=== PATIENT | female | born 1975 ===

== ENCOUNTER 2020-07-12 10:17 | Outpatient (REF) | payer MEDICAID, SELFPAY ==
--- NOTE | ~2020-07-12 | MM_ITS ---
EXAMINATION: MM SCREENING DIGITAL BREAST TOMOSYNTHESIS, BILATERAL CLINICAL INFORMATION: Screening. Asymptomatic. The lifetime risk of breast cancer based on the Tyrer-Cuzick Model is 11%. COMPARISON: Mammography: 04/29/2019, 03/24/2018 (baseline) TECHNIQUE: Digital breast tomosynthesis is performed in both the craniocaudal and mediolateral oblique views along with computer-aided detection (CAD). Synthesized 2D images are generated from the tomosynthesis. FINDINGS: The breasts are almost entirely fatty (ACR BI-RADS breast composition Category a). There are no significant masses, abnormal calcifications, or other abnormalities. Background stromal and fibroglandular densities are stable. No significant changes. MM/MM tomosynthesis screening BI IMPRESSION: No mammographic evidence of malignancy. ASSESSMENT: BI-RADS 1: Negative RECOMMENDATION: Routine annual mammography screening. This patient's information was entered into a reminder system with a target due date for their next mammogram.
== END 2020-07-12 10:18 | disposition home or self-care (01) ==
LOC: HO.MAMMO 10:17
PROVIDERS: PCP Pediatrics; Visit Provider Pediatrics
DX: Z12.31 Encounter for screening mammogram for malignant neoplasm of breast (principal)
CPT/HCPCS: 77063; 77067

== ENCOUNTER 2020-09-15 08:15 | Emergency (ER) | payer MEDICAID, SELFPAY ==
--- NOTE | ~2020-09-15 | XR_ITS ---
EXAMINATION: CHEST X-RAY AND SOFT TISSUE NECK. CLINICAL INFORMATION: Chest pain COMPARISON: Chest 07/07/2011 TECHNIQUE: 2 views chest. 2 views soft tissue neck. FINDINGS: CHEST: The lungs are well-expanded and clear. The heart size and pulmonary vascularity is normal. No gross bony abnormality seen. SOFT TISSUE NECK: There is maintained cervical lordosis. The vertebral heights and alignment is normal. The prevertebral and pretracheal soft tissues are normal. The airway widely patent. XR/XR chest 2V IMPRESSION: Unremarkable chest exam. Unremarkable soft tissue neck.
--- NOTE | ~2020-09-15 | XR_ITS ---
EXAMINATION: CHEST X-RAY AND SOFT TISSUE NECK. CLINICAL INFORMATION: Chest pain COMPARISON: Chest 07/07/2011 TECHNIQUE: 2 views chest. 2 views soft tissue neck. FINDINGS: CHEST: The lungs are well-expanded and clear. The heart size and pulmonary vascularity is normal. No gross bony abnormality seen. SOFT TISSUE NECK: There is maintained cervical lordosis. The vertebral heights and alignment is normal. The prevertebral and pretracheal soft tissues are normal. The airway widely patent. XR/XR soft tissue neck IMPRESSION: Unremarkable chest exam. Unremarkable soft tissue neck.
[2020-09-15 09:52] VITALS: BP 129/74; PULSE 89; RESP 18; TEMP 36.9; O2SAT 100; BMI 34.3
--- NOTE | 2020-09-15 10:16 | ED_ITS ---
HPI - Chest Pain General Chief Complaint: Chest Pain Stated Complaint: DIFF BREATHING PAIN IN ESOPHAGUS Time Seen by Provider: 09/15/20 08:21 Source: patient and job tracer Mode of arrival: ambulatory Limitations: no limitations History of Present Illness MD complaint: chest pain and other (feeling dyspnea at night) Onset (ago): day(s) (3) Timing of current episode: episodic Prior episodes: No Onset: during rest and other (laying down) Pain location: substernal Pain radiation: none Severity: moderate Quality: tightness Relieving factors: nothing Exacerbating factors: supine Associated symptoms: dyspnea Treatment prior to arrival: none Related Data Previous Rx's Medication Instructions Recorded cyclobenzaprine 10 mg PO TID PRN #14 tab 09/15/20 prednisone 40 mg PO DAILY 5 Days #10 tab 09/15/20 Allergies Allergy/AdvReac Type Severity Reaction Status Date / Time Sulfa (Sulfonamide Allergy Mild RASH Verified 09/15/20 09:58 Antibiotics) [SULFA(SULFONAMIDE ANTIBIOTICS)] acetaminophen [Percocet] Allergy Unknown itch Verified 09/15/20 09:58 oxycodone [Percocet] Allergy Unknown itch Verified 09/15/20 09:58 SEAFOOD Allergy Unknown SWELLING Uncoded 02/10/20 17:23 Review of Systems Review of Systems: Constitutional : No Fever, No Chills ENT/Mouth : No sore throat, No Rhinorrhea, No Swallowing Difficulty Eyes: No Eye Pain, No Swelling, No Redness Cardiovascular : pos Chest Pain, positive SOB, No Orthopnea, no Edema Respiratory : No Cough, No Sputum, No Wheezing, positive dyspnea Gastrointestinal : No Nausea, No Vomiting, No Diarrhea, No abdominal Pain, No Hematochezia, No Melena Genitourinary : No Dysuria, No Urinary Frequency, No Hematuria Musculoskeletal : No joint pain, No Myalgias Skin : No Skin Lesions, No rash Neuro : No Weakness, No Numbness, No Dizziness, No Headache Psych : No Anxiety/Panic, No Depression Heme/Lymph: No Bruising, No Lymphadenopathy Endocrine : No Polyuria, No Polydipsia All other systems reviewed and are negative [facility] Past Medical History Attestation statement: The following information was validated with the patient. Medical History Depression Fibromyalgia Sleep apnea Social History Social History (Updated 09/15/20 @ 11:05 by Daphnie Bond DO) Alcohol intake: never Smoking Status: Never smoker Advance Directives: No Advance Directives Information Provided: No Physical Exam Vital Signs: Vital Signs: Last Vital Signs Temp 98.5 F 09/15/20 09:52 Pulse 89 09/15/20 09:52 Resp 18 09/15/20 09:52 BP 129/74 09/15/20 09:52 Pulse Ox 100 09/15/20 09:52 Body Mass Index 34.3 Appearance: Alert. Oriented X3. No acute distress. Eyes: Pupils equal, round and reactive to light. ENT: Pharynx normal. Neck: Normal inspection. Neck supple. CVS: Normal heart rate and rhythm. Pulses normal. Chest: ttp along sternum Respiratory: No respiratory distress. Breath sounds normal. Abdomen: Soft and nontender. Skin: Skin warm and dry. Normal skin color. Normal skin turgor. Extremities: No lower extremity edema. No calf ttp Neuro: Oriented X 3. No motor deficit. No sensory deficit. Course Course Course Narrative: negative workup negative xrays clear oropharynx will start on steroids for costochondritis MDM - Chest Pain MDM Narrative Medical decision making narrative: 45 yo female with HTN, fibromyalgia here with dyspnea at night feeling she has something stuck in her throat as well as chest pain since last night with associated dyspnea when laying down no signs of peripheral edema, clear lungs, reproduceable CWP, PERC negative, at this time EKG, CXR, basic labs, could be costochondritis vs atypical chest pain - dispo per results and findings. Lab Data Result diagrams: 09/15/20 10:50 09/15/20 10:50 Labs: Lab Results 09/15/20 09/15/20 09/15/20 Range/Units 10:50 10:50 10:50 WBC 7.3 (4.8-10.8) X10*3/uL RBC 3.86 L (4.20-5.50) X10*6/uL Hgb 12.0 (12.0-16.0) g/dl Hct 35.4 L (37-47) % MCV 91.7 (80-98) fL MCH 31.1 (27.0-33.0) pg MCHC 33.9 (31.0-35.0) g/dl RDW 12.2 (11.0-16.0) % Plt Count 255 (160-400) X10*3/uL MPV 8.8 L (9.4-12.3) fL Immature Gran % (Auto) 0.3 (0.0-0.4) % Neut % (Auto) 64.8 (45-73) % Lymph % (Auto) 28.1 (20-40) % [place] % (Auto) 6.3 (2-11) % Eos % (Auto) 0.4 (0-4) % Baso % (Auto) 0.1 (0-2) % Lymph # (Auto) 2.1 (1.2-4.9) X10*3/uL [place] # (Auto) 0.5 (0.1-1.2) X10*3/uL Eos # (Auto) 0.0 (0.0-0.4) X10*3/uL Baso # (Auto) 0.0 (0.0-0.2) X10*3/uL Abs Immat Gran (auto) 0.02 (0.00-0.03) X10*3/uL Absolute Neuts (auto) 4.8 (2.0-8.3) X10*3/uL Absolute Nucleated RBC 0.000 (0.0-0.012) X10*3/uL Nucleated RBC % (auto) 0.0 (0.0-0.2) /100WBC Hold Blue Top SEE NOTE Sodium 138 (135-145) mmol/L Potassium 4.1 (3.3-5.1) mmol/L Chloride 106 (96-108) mmol/L Carbon Dioxide 26 (22-29) mmol/L Anion Gap 10 L (12-20) BUN 6 L (9-16) mg/dL Creatinine 0.80 (0.5-1.4) mg/dL Estim Creat Clear Calc 106.2 Estimated GFR > 60 Random Glucose 105 (60-115) mg/dL Calcium 9.0 (8.4-10.2) mg/dL Magnesium 2.0 (1.6-2.6) mg/dL Total Bilirubin 0.4 (0.0-1.0) mg/dL Direct Bilirubin < 0.2 (0.0-0.5) mg/dL AST 25 (5-31) U/L ALT 34 H (0-31) U/L Alkaline Phosphatase 78 (39-117) U/L Troponin I High Sens (<3.5-17.0) ng/L Total Protein 6.9 (6.5-8.0) g/dL Albumin 4.0 (3.5-5.0) g/dL Lipase 47 (8-78) U/L COVID-19 (STACY) (Negative) COVID-19 Clin Com 09/15/20 09/15/20 Range/Units 10:50 10:50 WBC (4.8-10.8) X10*3/uL RBC (4.20-5.50) X10*6/uL Hgb (12.0-16.0) g/dl Hct (37-47) % MCV (80-98) fL MCH (27.0-33.0) pg MCHC (31.0-35.0) g/dl RDW (11.0-16.0) % Plt Count (160-400) X10*3/uL MPV (9.4-12.3) fL Immature Gran % (Auto) (0.0-0.4) % Neut % (Auto) (45-73) % Lymph % (Auto) (20-40) % [place] % (Auto) (2-11) % Eos % (Auto) (0-4) % Baso % (Auto) (0-2) % Lymph # (Auto) (1.2-4.9) X10*3/uL [place] # (Auto) (0.1-1.2) X10*3/uL Eos # (Auto) (0.0-0.4) X10*3/uL Baso # (Auto) (0.0-0.2) X10*3/uL Abs Immat Gran (auto) (0.00-0.03) X10*3/uL Absolute Neuts (auto) (2.0-8.3) X10*3/uL Absolute Nucleated RBC (0.0-0.012) X10*3/uL Nucleated RBC % (auto) (0.0-0.2) /100WBC Hold Blue Top Sodium (135-145) mmol/L Potassium (3.3-5.1) mmol/L Chloride (96-108) mmol/L Carbon Dioxide (22-29) mmol/L Anion Gap (12-20) BUN (9-16) mg/dL Creatinine (0.5-1.4) mg/dL Estim Creat Clear Calc Estimated GFR Random Glucose (60-115) mg/dL Calcium (8.4-10.2) mg/dL Magnesium (1.6-2.6) mg/dL Total Bilirubin (0.0-1.0) mg/dL Direct Bilirubin (0.0-0.5) mg/dL AST (5-31) U/L ALT (0-31) U/L Alkaline Phosphatase (39-117) U/L Troponin I High Sens < 3.5 (<3.5-17.0) ng/L Total Protein (6.5-8.0) g/dL Albumin (3.5-5.0) g/dL Lipase (8-78) U/L COVID-19 (STACY) Negative (Negative) COVID-19 Clin Com See Note ECG Data ECG #1: Attestation: I personally reviewed and interpreted this ECG as follows: ECG interpretation date: 09/15/20 ECG interpretation time: 11:46 Interpretation: Rate: 77 Rhythm: NSR [place]: normal Normal P waves. Normal VEGA. Normal QRS complex. ST T wave : normal no NADIRA qTC: normal prior studies: no acute ischemia The study has been interpreted contemporaneously by me. . Discharge Plan Discharge Clinical Impression: Atypical chest pain, Costalchondritis Patient Disposition: Home, Self-Care Instructions: Costochondritis (ED) Additional Instructions: return to ED for any worsening symptoms or concerns Prescriptions: New cyclobenzaprine 10 mg tablet 10 mg PO TID PRN (Reason: muscle spasm) Qty: 14 RF: 0 prednisone 20 mg tablet 40 mg PO DAILY 5 Days Qty: 10 RF: 0 Referrals: Frannie Cedillo MD [Primary Care Provider] - 3 days (if not better) Stand Alone Forms: Work/School Release Print Language: Malay
--- NOTE | 2020-09-15 10:30 | ECG_ITS ---
Test Reason : CHEST PAIN Blood Pressure : / mmHG Vent. Rate : 077 BPM Atrial Rate : 077 BPM P-R Int : 194 ms QRS Dur : 086 ms QT Int : 390 ms P-R-T Axes : 075 040 048 degrees QTc Int : 441 ms Normal sinus rhythm Normal ECG When compared with ECG of 06-MAY-2019 15:41, No significant change was found Referred By: Daphnie Bond Electronically Signed By:CHUCHO RIZVI MD
[2020-09-15 10:54] LABS: MANUAL DIFF FLAG NO
[2020-09-15 10:57] LABS: Basophils Percent Auto 0.1 % (0-2); Eosinophils Percent Auto 0.4 % (0-4); Hematocrit 35.4 % (37-47); Imm Gran Abs Auto 0.02 X10*3/uL (0.00-0.03); Imm Gran Pct Auto 0.3 % (0.0-0.4); Lymphocytes Absolute Auto 2.1 X10*3/uL (1.2-4.9); Lymphocytes Percent Auto 28.1 % (20-40); Mean Corpuscular HGB Conc 33.9 g/dl (31.0-35.0); Mean Corpuscular Hemoglobin 31.1 pg (27.0-33.0); Mean Corpuscular Volume 91.7 fL (80-98); Mean Platelet Volume 8.8 fL (9.4-12.3); Monocytes Absolute Auto 0.5 X10*3/uL (0.1-1.2); Monocytes Percent Auto 6.3 % (2-11); Neutrophils Absolute Auto 4.8 X10*3/uL (2.0-8.3); Neutrophils Percent Auto 64.8 % (45-73); Platelet Count 255 X10*3/uL (160-400); Red Blood Count 3.86 X10*6/uL (4.20-5.50); Red Cell Distribution Width 12.2 % (11.0-16.0); White Blood Count 7.3 X10*3/uL (4.8-10.8)
[2020-09-15 11:12] LABS: COVID-19 Test Negative (Negative); IDNOW Serial# 9DD0AD1C
[2020-09-15 11:35] LABS: Alanine Aminotransferase 34 U/L (0-31); Alkaline Phosphatase 78 U/L (39-117); Anion Gap 10 (12-20); Aspartate Amino Transferase 25 U/L (5-31); Bilirubin Direct < 0.2 mg/dL (0.0-0.5); Bilirubin Total 0.4 mg/dL (0.0-1.0); Blood Urea Nitrogen 6 mg/dL (9-16); Carbon Dioxide 26 mmol/L (22-29); Chloride 106 mmol/L (96-108); Creatinine Clr Calc Pharmacy 106.2; Estimated Glomerular Filt Rate > 60; Glucose Random 105 mg/dL (60-115); Lipase 47 U/L (8-78); Potassium 4.1 mmol/L (3.3-5.1); Sodium 138 mmol/L (135-145); Total Protein 6.9 g/dL (6.5-8.0)
[2020-09-15 11:40] LABS: Troponin-I High Sensitivity < 3.5 ng/L (<3.5-17.0)
== END 2020-09-15 12:19 | disposition home or self-care (01) ==
PROVIDERS: Emergency Provider Emergency Medicine; PCP Pediatrics
DX: R07.89 Other chest pain (principal); M94.0 Chondrocostal junction syndrome [Tietze]; Z20.822 Contact with and (suspected) exposure to COVID-19
CPT/HCPCS: 36415; 70360; 71046; 80048; 80076; 83690; 83735; 84484; 85025; 87635; 93005; 99283

== ENCOUNTER 2020-11-20 08:01 | Outpatient (REF) | payer MEDICAID, SELFPAY | END 2020-11-20 08:02 | disposition home or self-care (01) | LOC: CF 08:01 | PROVIDERS: Visit Provider Nurse Practitioner Family | DX: K21.9 Gastro-esophageal reflux disease without esophagitis (principal) | CPT/HCPCS: 87338; 99202 ==

== ENCOUNTER → 2020-12-25 08:25 | Outpatient (BNVA) | payer MEDICAID, SELFPAY | PROVIDERS: PCP Pediatrics; Visit Provider Nurse Practitioner Family | DX: R19.7 Diarrhea, unspecified (principal); K21.9 Gastro-esophageal reflux disease without esophagitis | CPT/HCPCS: 99212 ==

== ENCOUNTER 2021-02-05 11:49 | Day surgery (SDC) | payer MEDICAID, SELFPAY ==
--- NOTE | 2021-02-02 10:16 | HO.ANESPROP2 ---
Documented by User: Magali Chavez NP 02/02/21 10:17 HPI - Anesthesia Eval Consult details Narrative: 45yo F for Upper Endoscopy PMFSH Past Medical History Medical History (Updated 02/05/21 @ 14:13 by Taryn Devlin MD) Anxiety Bipolar 1 disorder Depression Fibromyalgia GERD (gastroesophageal reflux disease) Hypertension Panic attacks Sleep apnea Family History Family History Mother HTN (hypertension) Diabetes Father HTN (hypertension) Surgical History Surgical History History of carpal tunnel surgery Hx of section Hx of cholecystectomy Social History Social History Household Members: Children Alcohol intake: never Patient Tobacco Use Status: Former Tobacco user Smoked in Last 30 Days: No Use of substances other than those prescribed or required for medical reasons: No Are you DNR?: No Advance Directives: No Advance Directives Information Provided: No Recently lost weight without trying: No Nutrition Risks: No Nutritional Risk Meds Allergies Allergy/AdvReac Type Severity Reaction Status Date / Time Sulfa (Sulfonamide Allergy Mild RASH Verified 12/25/20 08:26 Antibiotics) [SULFA(SULFONAMIDE ANTIBIOTICS)] acetaminophen [Percocet] Allergy Unknown itch Verified 12/25/20 08:26 oxycodone [Percocet] Allergy Unknown itch Verified 12/25/20 08:26 SEAFOOD Allergy Unknown SWELLING Uncoded 02/10/20 17:23 Home Medications Medication Instructions Recorded Confirmed Last Taken Type clonidine HCl 0.2 mg tablet 1 tab PO BID 02/05/21 02/05/21 Unknown History labetalol 200 mg tablet 1 tab PO BID 02/05/21 02/05/21 02/05/21 History Exam Exam Date and Time: February 02, 2021 1016 Pertinent Lab Results Pertinent Lab Results: Laboratory Tests 09/15/20 09/15/20 10:50 10:50 WBC 7.3 Hgb 12.0 Hct 35.4 L Plt Count 255 Sodium 138 Potassium 4.1 Chloride 106 Carbon Dioxide 26 BUN 6 L Creatinine 0.80 Assessment and Plan Assessment Anesthesia Assessment: Chart Reviewed Documented by User: Taryn Devlin MD 02/05/21 14:19 [facility] Past Medical History Medical History (Updated 02/05/21 @ 14:13 by Taryn Devlin MD) Anxiety Bipolar 1 disorder Depression Fibromyalgia GERD (gastroesophageal reflux disease) Hypertension Panic attacks Sleep apnea Family History Family History Mother HTN (hypertension) Diabetes Father HTN (hypertension) Family history of problems with anesthesia: No Surgical History Surgical History History of carpal tunnel surgery Hx of section Hx of cholecystectomy History of Problems with Anesthesia: No Social History Social History Household Members: Children Alcohol intake: never Patient Tobacco Use Status: Former Tobacco user Smoked in Last 30 Days: No Use of substances other than those prescribed or required for medical reasons: No Are you DNR?: No Advance Directives: No Advance Directives Information Provided: No Recently lost weight without trying: No Nutrition Risks: No Nutritional Risk Meds Allergies Allergy/AdvReac Type Severity Reaction Status Date / Time Sulfa (Sulfonamide Allergy Mild RASH Verified 12/25/20 08:26 Antibiotics) [SULFA(SULFONAMIDE ANTIBIOTICS)] acetaminophen [Percocet] Allergy Unknown itch Verified 12/25/20 08:26 oxycodone [Percocet] Allergy Unknown itch Verified 12/25/20 08:26 SEAFOOD Allergy Unknown SWELLING Uncoded 02/10/20 17:23 Home Medications Medication Instructions Recorded Confirmed Last Taken Type clonidine HCl 0.2 mg tablet 1 tab PO BID 02/05/21 02/05/21 Unknown History labetalol 200 mg tablet 1 tab PO BID 02/05/21 02/05/21 02/05/21 History Exam Height,Weight and Vital Signs: Height 5 ft 6 in Weight 96.615 kg Vital Signs Temp Pulse Resp BP Pulse Ox 99.2 F 75 16 120/81 98 02/05/21 13:49 02/05/21 13:49 02/05/21 13:49 02/05/21 13:49 02/05/21 13:49 Pertinent Lab Results Pertinent Lab Results: Laboratory Tests 09/15/20 09/15/20 10:50 10:50 WBC 7.3 Hgb 12.0 Hct 35.4 L Plt Count 255 Sodium 138 Potassium 4.1 Chloride 106 Carbon Dioxide 26 BUN 6 L Creatinine 0.80 Lab Results 02/05/21 Range/Units 12:30 Urine Test NEGATIVE (NEGATIVE) Airway Mallampati Class: II TM Dist: >3cm Neck ROM: Full Heart: RRR Lungs: CTAB Assessment and Plan Assessment Anesthesia Assessment: Anesthesia Plan Discussed Final Anesthetic Review Family History of Problems with Anesthesia: No History of Problems with Anesthesia: No NPO: Yes ASA Class: III Final Preanesthetic Review: No Changes in Pt Med Stat, Meds/Allgs Chart Reviewed, Consent Obtained/Reviewed and Anes Risks/Benef Reviewed Patient Risk: Intermediate Procedure Risk: Low Assessment/Block/Sedation in SS: Assess/Block/Sedation-SS Anesthetic Plan Anesthetic Plan: MAC: Disposition: Standard PACU
[2021-02-05 12:53] LABS: UPreg QC Valid YES; Urine Pregnancy NEGATIVE (NEGATIVE)
[2021-02-05 12:57] VITALS: BMI 34.3
--- NOTE | 2021-02-05 12:59 | MHC.SHP ---
Pre-Procedural Eval Section A Date of Service: 02/05/21 The patient is an INPATIENT: No The History & Physical has been completed within 30 days and I have reviewed it.: No Section B Chief Complaint: GERD Details of Present Illness: GERD, post prandial diarrhea Relevant Family History (Specify if Yes): No Relevant Social History: Tobacco Use (former smoker) Present Medications: see Short Stay Collaborative assessment Medical History: Significant History (Depression Fibromyalgia Sleep apnea) History of Previous Operations: Relevant previous surgery/procedure and date(s) (History of carpal tunnel surgery Hx of section Hx of cholecystectomy) Allergies: Allergies Allergy/AdvReac Type Severity Reaction Status Date / Time Sulfa (Sulfonamide Allergy Mild RASH Verified 12/25/20 08:26 Antibiotics) [SULFA(SULFONAMIDE ANTIBIOTICS)] acetaminophen [Percocet] Allergy Unknown itch Verified 12/25/20 08:26 oxycodone [Percocet] Allergy Unknown itch Verified 12/25/20 08:26 SEAFOOD Allergy Unknown SWELLING Uncoded 02/10/20 17:23 Review of Systems Sugical H&P ROS: Negative: Constitution, Cardiovascular and Respiratory and Yes, Specify: Gastrointestinal (GERD) Exam Surgical H&P Exam: Normal: Heart, Normal: Lungs, Normal: Extremities and Normal: Abdomen Plan Diagnosis/Plan: Unchanged I have reviewed the history and physical and performed a pertinent physical examination on my patient. No changes have occurred unless specified.
--- NOTE | 2021-02-05 13:01 | PM.OP ---
Brief Operative Note Date of Service: 02/05/21 Pre-op diagnosis: GERD, dyspepsia Post-op diagnosis: other (Hiatal hernia, gastritis, gastric polyps, retained food in the stomach) Procedure: FLEXIBLE TRANSORAL UPPER GASTROINTESTINAL ENDOSCOPY WITH BIOPSIES Consent: Indications for the procedure and potential complications of bleeding, perforation, reaction to medications and missed diagnosis were discussed with the patient and informed consent was obtained. Instrument: Olympus GIF H 190 mid size upper endoscope Monitoring: Vital signs and clinical assessment, continuous EKG monitoring, Pulse oximetry, Carbon Dioxide monitoring and blood pressure monitoring were done throughout the procedure. Procedure: The patient was placed in the left lateral decubitis position and pre-procedure medications were administered and a bite block was placed. The endoscope was inserted into the mouth and advanced under direct vision to the third part of duodenum. A careful inspection was made as the upper endoscope was withdrawn including a retroflexed examination of the proximal stomach; Findings and interventions are described below. Findings: Larynx: Normal Esophagus: GE junction at 36 cms, small hiatal hernia 36 to 38 cms. No esophagitis or Andre Stomach: There was moderate amount of retained food consisteing of undigested vegetable material. Multiple 8-10 mm benign appearing polyps and body and fundus of stomach - biopsies. Mild gastric erythema. Biopsies were obtained. Grade 2 flap valve on retroflexed examination of the cardia. Duodenum: Normal bulb and descending duodenum. Biopsies were obtained from 3rd part the duodenum to check for celiac sprue Intervention: Biopsies as noted above Impression and Post Procedure Diagnosis: Endoscopy Findings: ESOPHAGUS: small hiatal hernia STOMACH: Gastritis, gastric polyps and retained food in the stomach suggestive of Gastroparesis.. DUODENUM: Normal Plan: Await pathology results. Patient has an appointment on 02/20/21 in the GI Clinic with Anai Meyers NP. Recommend further evaluation with Gastric Emptying Study. Above findings were reviewed with the patient and GERD, Hiatal hernia and Gastritic Polyps handouts were given in the discharge area Surgeon: Kristi Pittman MD Anesthesia: MAC (Dr Devlin) Was an Auto Repair Shop Manager used for this Procedure?: No Estimated blood loss (mL): 0 Pathology: other (a. small bowel bxs r/o celiac b. antrum bxs r/0 h pylori c. gastric polyp) Condition: stable Disposition: PACU
[2021-02-05] MEDS: Lactated Ringers 1,000 ML 100 ML IVCONT (13:05)
--- NOTE | 2021-02-05 13:24 | W.PM.OPN ---
Operative Note Operative Note Date of Service: 02/05/21 Narrative: Pre-op diagnosis:?GERD, dyspepsia Post-op diagnosis:?other (Hiatal hernia, gastritis, gastric polyps, retained food in the stomach) Procedure:? FLEXIBLE TRANSORAL UPPER GASTROINTESTINAL ENDOSCOPY WITH BIOPSIES Consent:?Indications for the procedure and potential complications of bleeding, perforation, reaction to medications and missed diagnosis were discussed with the patient and informed consent was obtained. Instrument:?Olympus GIF H 190 mid size upper endoscope Monitoring: Vital signs and clinical assessment, continuous EKG monitoring, Pulse oximetry, Carbon Dioxide monitoring and blood pressure monitoring were done throughout the procedure. Procedure:?The patient was placed in the left lateral decubitis position and pre-procedure medications were administered and a bite block was placed. The endoscope was inserted into the mouth and advanced under direct vision to the third part of duodenum. A careful inspection was made as the upper endoscope was withdrawn including a retroflexed examination of the proximal stomach; Findings and interventions are described below. Findings: Larynx:? Normal Esophagus:?GE junction at 36 cms, small hiatal hernia 36 to 38 cms.? No esophagitis or Andre Stomach:?There was moderate amount of retained food consisteing of undigested vegetable material.? Multiple 8-10 mm benign appearing polyps and body and fundus of stomach - biopsies.? Mild gastric erythema. Biopsies were obtained. Grade 2 flap valve on retroflexed examination of the cardia. Duodenum:?Normal bulb and descending duodenum.? Biopsies were obtained from 3rd part the duodenum to check for celiac sprue Intervention:?Biopsies as noted above Impression and Post Procedure Diagnosis: Endoscopy Findings: ESOPHAGUS: small hiatal hernia STOMACH: Gastritis, gastric polyps and retained food in the stomach suggestive of Gastroparesis.. DUODENUM: Normal Plan: Await pathology results. Patient has an appointment on 02/20/21 in the GI Clinic with Anai Meyers NP. Recommend further evaluation with Gastric Emptying Study. Above findings were reviewed with the patient and GERD, Hiatal hernia and Gastritic Polyps handouts were given in the discharge area Surgeon:?Kristi Pittman MD Anesthesia:?MAC (Dr Devlin) Was an Bilingual Middle School Teacher used for this Procedure?:?No Estimated blood loss (mL):?0 Pathology:?other (a. small bowel bxs r/o celiac? b. antrum bxs r/0 h pylori? c. gastric polyp) Condition:?stable Disposition:?PACU
[2021-02-05 13:49] VITALS: BP 120/81; PULSE 75; RESP 16; TEMP 37.3; O2SAT 98
[2021-02-05 14:05] VITALS: BP 120/82; PULSE 69; RESP 18; O2SAT 72
[2021-02-05 14:15] VITALS: BP 147/84; PULSE 67; RESP 18; TEMP 37.4; O2SAT 99
[2021-02-05 14:17] VITALS: BP 131/86
== END 2021-02-05 14:36 | disposition home or self-care (01) ==
PROVIDERS: Nurse Practitioner; PCP Pediatrics; Visit Provider Internal Medicine Gastroenterology
PROC: 0DJ08ZZ Inspection of Upper Intestinal Tract, Via Natural or Artificial Opening Endoscopic (ICD-10-PCS; CPT 43235; principal; 2021-02-05 12:50)
DX: K21.9 Gastro-esophageal reflux disease without esophagitis (principal); K31.7 Polyp of stomach and duodenum; K29.50 Unspecified chronic gastritis without bleeding; K31.84 Gastroparesis; K44.9 Diaphragmatic hernia without obstruction or gangrene; G47.30 Sleep apnea, unspecified; Z79.899 Other long term (current) drug therapy; Z88.2 Allergy status to sulfonamides; Z88.8 Allergy status to other drugs, medicaments and biological substances; Z90.49 Acquired absence of other specified parts of digestive tract; Z87.891 Personal history of nicotine dependence
CPT/HCPCS: 43239; 81025; 88305; 88342

== ENCOUNTER → 2021-02-13 07:46 | Outpatient (REF) | payer MEDICAID, SELFPAY ==
--- NOTE | ~2021-02-13 | NM_ITS ---
EXAMINATION: RADIONUCLIDE SOLID FOOD GASTRIC EMPTYING 4-HOUR STUDY CLINICAL INFORMATION: Gastritis, unspecified, without bleeding. COMPARISON: No previous gastric emptying study is available for comparison. TECHNIQUE: A standard meal consisting of 4 oz of Egg Beaters brand equivalent tagged with 150 microcuries Tc-99m Sulfur Colloid, 8 oz water and 2 slices of toast with jelly was administered orally to the patient. Images were obtained using a dual head gamma camera in the anterior and posterior projections over of the stomach immediately post ingestion and at hourly intervals up to 4 hours post ingestion. The anterior and posterior counts at each time interval were averaged using the geometric mean and expressed as percentage of the immediate post ingestion counts. FINDINGS: There is good visualization of activity in the stomach immediately post ingestion. As the study progresses, there is visualization of progressively increasing small bowel activity. However, at the end of the study there is moderately severe abnormal retention of activity in the stomach at 4 hours. Retention in the stomach at each time interval was: 1 hour 69% (normal 37%-90%) 2 hours 58% (normal 30%-60%) 3 hours 48% 4 hours 34% (normal 0%-10%) NM/NM gastric emptying study IMPRESSION: Abnormal study. There is moderately severe abnormal retention of solid food in the stomach at 4 hours.
== END ==
LOC: HO.NUCMED 07:46
PROVIDERS: PCP Pediatrics; Visit Provider Nurse Practitioner Family
DX: K29.70 Gastritis, unspecified, without bleeding (principal)
CPT/HCPCS: 78264; A9541

== ENCOUNTER 2021-02-20 12:40 | Outpatient (REF) | payer MEDICAID, SELFPAY ==
[2021-02-20 14:42] LABS: C Reactive Protein 0.41 mg/dL (< or = 0.50)
[2021-02-20 15:06] LABS: TSH reflex Free T4 2.04 uIU/mL (0.32-4.0)
== END 2021-02-20 12:41 | disposition home or self-care (01) ==
LOC: HO.LAB 12:40
PROVIDERS: PCP Pediatrics; Referring Provider Pediatrics; Visit Provider Nurse Practitioner Family
DX: R19.7 Diarrhea, unspecified (principal); K31.84 Gastroparesis; K21.9 Gastro-esophageal reflux disease without esophagitis
CPT/HCPCS: 36415; 84443; 86140; 99212

== ENCOUNTER → 2021-03-21 11:46 | Outpatient (BNVA) | payer MEDICAID, SELFPAY | PROVIDERS: PCP Pediatrics; Visit Provider Nurse Practitioner Family | DX: K31.84 Gastroparesis (principal); K21.9 Gastro-esophageal reflux disease without esophagitis; R19.7 Diarrhea, unspecified | CPT/HCPCS: 99212 ==

== ENCOUNTER 2021-06-04 10:03 | Outpatient (REF) | payer MEDICAID, SELFPAY ==
[2021-06-04 10:25] LABS: MANUAL DIFF FLAG NO
[2021-06-04 11:05] LABS: Basophils Percent Auto 0.4 % (0-2); Eosinophils Absolute Auto 0.1 X10*3/uL (0.0-0.4); Hematocrit 35.1 % (37.0-47.0); Hemoglobin 11.5 g/dl (12.0-16.0); Imm Gran Abs Auto 0.03 X10*3/uL (0.00-0.03); Imm Gran Pct Auto 0.4 % (0.0-0.4); Lymphocytes Absolute Auto 2.3 X10*3/uL (1.2-4.9); Lymphocytes Percent Auto 32.5 % (20-40); Mean Corpuscular HGB Conc 32.8 g/dl (31.0-35.0); Mean Corpuscular Hemoglobin 28.9 pg (27.0-33.0); Mean Corpuscular Volume 88.2 fL (80.0-98.0); Mean Platelet Volume 8.9 fL (9.4-12.3); Monocytes Absolute Auto 0.5 X10*3/uL (0.1-1.2); Monocytes Percent Auto 7.2 % (2-11); Neutrophils Absolute Auto 4.2 x10*3/uL (2.0-8.3); Neutrophils Percent Auto 58.5 % (45-73); Platelet Count 262 X10*3/uL (160-400); Red Blood Count 3.98 X10*6/uL (4.20-5.50); Red Cell Distribution Width 12.4 % (11.0-16.0); White Blood Count 7.2 X10*3/uL (4.8-10.8)
[2021-06-04 11:16] LABS: Estimated Average Glucose 103 mg/dL; Hemoglobin A1c % 5.2 %
[2021-06-04 11:29] LABS: Alanine Aminotransferase 32 U/L (0-31); Albumin Level 3.9 g/dL (3.5-5.0); Alkaline Phosphatase 68 U/L (39-117); Anion Gap 9 (12-20); Aspartate Amino Transferase 24 U/L (5-31); Bilirubin Total 0.4 mg/dL (0.0-1.0); Blood Urea Nitrogen 12 mg/dL (9-16); Calcium 9.5 mg/dL (8.4-10.2); Carbon Dioxide 27 mmol/L (22-29); Chloride 106 mmol/L (96-108); Cholesterol 219 mg/dL; Estimated Glomerular Filt Rate > 60; Glucose Fasting 101 mg/dL (60-99); HDL Cholesterol 44 mg/dL; LDL Cholesterol Calculated 122 mg/dl; Potassium 3.8 mmol/L (3.3-5.1); Sodium 138 mmol/L (135-145); Triglycerides 266 mg/dL
[2021-06-04 11:49] LABS: Thyroid Stimulating Hormone 2.29 uIU/mL (0.32-4.0)
== END 2021-06-04 10:04 | disposition home or self-care (01) ==
LOC: HO.LAB 10:03
PROVIDERS: PCP Pediatrics; Visit Provider Psychiatry & Neurology Psychiatry
DX: Z79.899 Other long term (current) drug therapy (principal)
CPT/HCPCS: 36415; 80053; 80061; 83036; 84443; 85025

== ENCOUNTER → 2021-06-20 10:58 | Outpatient (BNVA) | payer MEDICAID, SELFPAY | PROVIDERS: PCP Pediatrics; Referring Provider Pediatrics; Visit Provider Nurse Practitioner Family | DX: K31.84 Gastroparesis (principal); K21.9 Gastro-esophageal reflux disease without esophagitis; K58.0 Irritable bowel syndrome with diarrhea; R19.7 Diarrhea, unspecified | CPT/HCPCS: 99212 ==

== ENCOUNTER 2021-08-10 09:38 | Outpatient (REF) | payer MEDICAID, SELFPAY ==
--- NOTE | ~2021-08-10 | MM_ITS ---
EXAMINATION: MM SCREENING DIGITAL BREAST TOMOSYNTHESIS, BILATERAL CLINICAL INFORMATION: Screening. Asymptomatic. The lifetime risk of breast cancer based on the Tyrer-Cuzick Model is 15.5%. COMPARISON: Mammography: July 12, 2020 and studies dating back to March 24, 2018 TECHNIQUE: Digital breast tomosynthesis is performed in both the craniocaudal and mediolateral oblique views along with computer-aided detection (CAD). Synthesized 2D images are generated from the tomosynthesis. FINDINGS: The breasts are almost entirely fatty (ACR BI-RADS breast composition Category a). There are no significant masses, abnormal calcifications, or other abnormalities. MM/MM tomosynthesis screening BI IMPRESSION: There are no significant changes from prior study. ASSESSMENT: BI-RADS 1: Negative RECOMMENDATION: Routine annual mammography screening. This patient's information was entered into a reminder system with a target due date for their next mammogram.
== END 2021-08-10 09:39 | disposition home or self-care (01) ==
LOC: HO.MAMMO 09:38
PROVIDERS: Visit Provider Pediatrics
DX: Z12.31 Encounter for screening mammogram for malignant neoplasm of breast (principal)
CPT/HCPCS: 77063; 77067

== ENCOUNTER 2021-10-18 13:23 | Outpatient (REF) | payer MEDICAID, SELFPAY ==
[2021-10-18 15:20] LABS: Folate 6.4 ng/mL (> or = 4.0); Vitamin B12 251 pg/mL (200-900)
[2021-10-23 14:57] LABS: Vitamin D 25-OH, D2 11 ng/mL; Vitamin D 25-OH, D3 11 ng/mL; Vitamin D 25-OH, Total 22 ng/mL (30-100)
[2021-10-23 20:32] LABS: Transglutaminase Ab IgG <1.0 U/mL; Transglutaminase IgA <1.0 U/mL
== END 2021-10-18 13:24 | disposition home or self-care (01) ==
LOC: HO.LAB 13:23
PROVIDERS: PCP Pediatrics; Visit Provider Nurse Practitioner Family
DX: R19.7 Diarrhea, unspecified (principal); R10.11 Right upper quadrant pain; R14.0 Abdominal distension (gaseous); E55.9 Vitamin D deficiency, unspecified
CPT/HCPCS: 36415; 82306; 82607; 82746; 86364

== ENCOUNTER → 2021-10-26 14:26 | Outpatient (BNVA) | payer MEDICAID, SELFPAY | PROVIDERS: PCP Pediatrics | DX: R32 Unspecified urinary incontinence (principal); R35.0 Frequency of micturition | CPT/HCPCS: 99202 ==

== ENCOUNTER → 2021-10-30 13:11 | Outpatient (BNVA) | payer MEDICAID, SELFPAY | PROVIDERS: PCP Pediatrics; Referring Provider Pediatrics; Visit Provider Nurse Practitioner Family | DX: K21.9 Gastro-esophageal reflux disease without esophagitis (principal); K31.84 Gastroparesis; K58.2 Mixed irritable bowel syndrome | CPT/HCPCS: 99212 ==

== ENCOUNTER 2021-12-20 07:53 | Outpatient (REF) | payer MEDICAID, SELFPAY | END 2021-12-20 07:54 | disposition home or self-care (01) | LOC: HO.LAB 07:53 | PROVIDERS: PCP Pediatrics; Visit Provider Obstetrics & Gynecology | DX: R87.612 Low grade squamous intraepithelial lesion on cytologic smear of cervix (LGSIL) (principal) | CPT/HCPCS: 57456; 88305 ==

== ENCOUNTER → 2022-01-10 08:04 | Outpatient (BNVA) | payer MEDICAID, SELFPAY | PROVIDERS: PCP Pediatrics; Visit Provider Obstetrics & Gynecology | DX: N87.0 Mild cervical dysplasia (principal) | CPT/HCPCS: 99212 ==

== ENCOUNTER 2022-02-11 12:05 | Emergency (ER) | payer MEDICAID, SELFPAY ==
[2022-02-11 12:12] VITALS: BP 156/95; PULSE 99; RESP 18; TEMP 37.3; O2SAT 96; BMI 33.3
--- NOTE | 2022-02-11 12:16 | ECG_ITS ---
Test Reason : shoulder pain Blood Pressure : / mmHG Vent. Rate : 084 BPM Atrial Rate : 084 BPM P-R Int : 164 ms QRS Dur : 084 ms QT Int : 364 ms P-R-T Axes : 068 021 041 degrees QTc Int : 430 ms Normal sinus rhythm Normal ECG When compared with ECG of 15-SEP-2020 11:40, No significant change was found Referred By: Generic ED Physician Electronically Signed By:LOAN SANCHEZ
[2022-02-11 12:26] LABS: MANUAL DIFF FLAG NO
[2022-02-11 12:29] LABS: Basophils Percent Auto 0.4 % (0-2); Eosinophils Absolute Auto 0.1 X10*3/uL (0.0-0.4); Eosinophils Percent Auto 0.8 % (0-4); Hematocrit 33.4 % (37.0-47.0); Hemoglobin 10.8 g/dl (12.0-16.0); Imm Gran Abs Auto 0.02 X10*3/uL (0.00-0.03); Imm Gran Pct Auto 0.2 % (0.0-0.4); Lymphocytes Absolute Auto 2.3 X10*3/uL (1.2-4.9); Lymphocytes Percent Auto 27.2 % (20-40); Mean Corpuscular HGB Conc 32.3 g/dl (31.0-35.0); Mean Corpuscular Hemoglobin 27.1 pg (27.0-33.0); Mean Corpuscular Volume 83.9 fL (80.0-98.0); Mean Platelet Volume 8.5 fL (9.4-12.3); Monocytes Absolute Auto 0.7 X10*3/uL (0.1-1.2); Monocytes Percent Auto 8.1 % (2-11); Neutrophils Absolute Auto 5.4 x10*3/uL (2.0-8.3); Neutrophils Percent Auto 63.3 % (45-73); Platelet Count 274 X10*3/uL (160-400); Red Blood Count 3.98 X10*6/uL (4.20-5.50); Red Cell Distribution Width 13.4 % (11.0-16.0); White Blood Count 8.5 X10*3/uL (4.8-10.8)
[2022-02-11 12:45] LABS: Alanine Aminotransferase 22 U/L (0-31); Albumin Level 4.1 g/dL (3.5-5.0); Alkaline Phosphatase 73 U/L (39-117); Anion Gap 13 (12-20); Aspartate Amino Transferase 19 U/L (5-31); Bilirubin Direct < 0.2 mg/dL (0.0-0.5); Bilirubin Total 0.3 mg/dL (0.0-1.0); Blood Urea Nitrogen 9 mg/dL (9-16); Calcium 9.4 mg/dL (8.4-10.2); Carbon Dioxide 26 mmol/L (22-29); Chloride 104 mmol/L (96-108); Creatinine Clr Calc Pharmacy 89.3; Estimated Glomerular Filt Rate > 60; Glucose Random 80 mg/dL (60-115); Potassium 3.9 mmol/L (3.3-5.1); Sodium 139 mmol/L (135-145); Total Protein 7.2 g/dL (6.5-8.0)
[2022-02-11 12:50] LABS: Troponin-I High Sensitivity < 3.5 ng/L (<3.5-17.0)
--- NOTE | 2022-02-11 16:20 | ED.EXTPRO ---
HPI - Extremity Problem General Chief complaint: Extremity Problem Stated complaint: L shoulder rad down arm Time Seen by Provider: 02/11/22 16:20 Source: patient Mode of arrival: ambulatory Limitations: no limitations History of Present Illness HPI Narrative: 46 yo female with hx HTN presents to the ER for evaluation of left-sided shoulder pain that she woke up with for the last 3 days. She reports the last 24 hours the pain has been worse. The pain is at the top of her left shoulder and radiates into her neck, down into her chest wall. It is worse with movement of her neck and arm. She denies any trauma or injury. she denies any shortness of breath, difficulty breathing, nausea, vomiting, abdominal pain. No numbness or weakness in the left upper extremity. She is right-hand dominant. MD Complaint: extremity pain Onset (ago): day(s) (3) Pain Consistency: constant Location: left and upper extremity Severity scale (1-10): 6 Quality: aching Radiation: other ( Neck and chest) Relieving factors: rest Exacerbating factors: range of motion and palpation Associated symptoms: denies other symptoms Related Data Home Medications Medication Instructions Recorded Confirmed clonidine HCl 0.2 mg tablet 1 tab PO BID 02/05/21 02/05/21 labetalol 200 mg tablet 1 tab PO BID 02/05/21 02/05/21 cholecalciferol (vitamin D3) 50 50 mcg PO DAILY 10/26/21 mcg (2,000 unit) capsule clonazepam 1 mg tablet 1 mg PO TID PRN 10/26/21 duloxetine 60 mg capsule,delayed 60 mg PO BID 10/26/21 release ketotifen fumarate 0.025 % (0.035 1 drp ophthalmic (eye) BID 10/26/21 %) eye drops lurasidone 120 mg tablet (Latuda) 120 mg PO DAILY 10/26/21 meloxicam 7.5 mg tablet 7.5 mg PO BID PRN pain 10/26/21 pregabalin 75 mg capsule 75 mg PO BID 10/26/21 quetiapine 100 mg tablet 100 mg PO BEDTIME 10/26/21 zolpidem 10 mg tablet 10 mg PO BEDTIME 10/26/21 Previous Rx's Medication Instructions Recorded famotidine 20 mg tablet (Pepcid) 20 mg PO BEDTIME #90 tabs 10/30/21 metoclopramide HCl 5 mg tablet 5 mg PO QIDACHS #120 tabs 10/30/21 (Reglan) omeprazole 40 mg capsule,delayed 40 mg PO BID #180 caps 10/30/21 release sennosides 8.6 mg tablet (Natural 8.6 mg PO BEDTIME constipation #90 10/30/21 Senna Laxative) tabs oxybutynin chloride 10 mg 10 mg PO DAILY OAB 90 days #90 tabs 12/24/21 tablet,extended release 24 hr cyclobenzaprine 10 mg tablet 10 mg PO TID PRN muscle spasm #14 02/11/22 tabs ibuprofen 600 mg tablet 600 mg PO Q8H PRN pain #20 tabs 02/11/22 lidocaine 5 % topical patch 1 patch topical DAILY #15 ea 02/11/22 Allergies Allergy/AdvReac Type Severity Reaction Status Date / Time Sulfa (Sulfonamide Allergy Mild RASH Verified 12/24/21 10:44 Antibiotics) [SULFA(SULFONAMIDE ANTIBIOTICS)] acetaminophen [Percocet] Allergy Unknown itch Verified 12/24/21 10:44 oxycodone [Percocet] Allergy Unknown itch Verified 12/24/21 10:44 SEAFOOD Allergy Unknown SWELLING Uncoded 12/24/21 10:44 Review of Systems Review of Systems: Constitutional: No Fever, No Chills Cardiovascular: No Chest Pain, No SOB Respiratory: No Cough, No Sputum Gastrointestinal: No Nausea, No Vomiting, No Diarrhea, No abdominal Pain Genitourinary: No Dysuria, No Urinary Frequency, No Hematuria Musculoskeletal: + joint pain, + Myalgias Skin: No Skin Lesions, No rash Neuro: No Weakness, No Numbness, No Dizziness, No Headache Psych: No Anxiety/Panic, No Depression Heme/Lymph: No Bruising, No Lymphadenopathy PMFSH Past Medical History Medical History Anxiety Bipolar 1 disorder Depression Fibromyalgia GERD (gastroesophageal reflux disease) Hypertension Panic attacks Sleep apnea Urinary incontinence Surgical History History of carpal tunnel surgery History of esophagogastroduodenoscopy (EGD) Hx of section Hx of cholecystectomy Family History Family History Mother HTN (hypertension) Diabetes Father HTN (hypertension) Social History Social History Household Members: Children Alcohol intake: never Patient Tobacco Use Status: Former Tobacco user Advance Directives: No Advance Directives Information Provided: No Physical Exam Vital Signs: Vital Signs: Last Vital Signs Temp 99.2 F 02/11/22 12:12 Pulse 99 02/11/22 12:12 Resp 18 02/11/22 12:12 BP 156/95 H 02/11/22 12:12 Pulse Ox 96 02/11/22 12:12 O2 Del Method 02/11/22 12:12 BMI result Body Mass Index 33.3 Appearance: Alert. Oriented X3. No acute distress. Eyes: Pupils equal, round and reactive to light. ENT: Pharynx normal. Neck: Normal inspection. Neck supple. CVS: Normal heart rate and rhythm. Pulses normal. Mild anterior chest wall tenderness on the left side Respiratory: No respiratory distress. Breath sounds normal. Abdomen: Soft and nontender. +BS x4 Skin: Skin warm and dry. Normal skin color. Normal skin turgor. No rashes. Extremities: No lower extremity edema. left shoulder with normal inspection, there is soft tissue tenderness anterior and superiorly with palpable muscle spasm. Normal passive and active range of motion of the left shoulder, elbow, wrist. Equal ecclesiastical worker strength bilaterally. normal palpation of the left clavicle. No left humerus tenderness. Neuro: Oriented X 3. No motor deficit. No sensory deficit. Course Course Course Narrative: 46-year-old female with history of hypertension presents to the ER for evaluation of left-sided nontraumatic shoulder pain that she woke up with 3 days ago. It is worse today. Examination she has soft tissue tenderness and palpable spasm of her upper trapezius. It is exacerbated with palpation and movement of her neck and arm. A cardiac workup was done in triage. Her EKG is unremarkable and her troponin is negative. Her labs are otherwise unremarkable. At this time will treat for muscular strain and spasm with muscle relaxer an NSAID. She will follow-up with her PCP at the [facility]. Return precautions were discussed. Stable for discharge home. Patient agrees with plan. senior mechanical technician used to discuss plan. MDM - Extremity (Nontraumatic) Lab Data Result diagrams: 02/11/22 12:22 02/11/22 12:22 Labs: Lab Results 02/11/22 02/11/22 02/11/22 Range/Units 12:22 12:22 12:22 WBC 8.5 (4.8-10.8) X10*3/uL RBC 3.98 L (4.20-5.50) X10*6/uL Hgb 10.8 L (12.0-16.0) g/dl Hct 33.4 L (37.0-47.0) % MCV 83.9 (80.0-98.0) fL MCH 27.1 (27.0-33.0) pg MCHC 32.3 (31.0-35.0) g/dl RDW 13.4 (11.0-16.0) % Plt Count 274 (160-400) X10*3/uL MPV 8.5 L (9.4-12.3) fL Immature Gran % (Auto) 0.2 (0.0-0.4) % Neut % (Auto) 63.3 (45-73) % Lymph % (Auto) 27.2 (20-40) % [place] % (Auto) 8.1 (2-11) % Eos % (Auto) 0.8 (0-4) % Baso % (Auto) 0.4 (0-2) % Lymph # (Auto) 2.3 (1.2-4.9) X10*3/uL [place] # (Auto) 0.7 (0.1-1.2) X10*3/uL Eos # (Auto) 0.1 (0.0-0.4) X10*3/uL Baso # (Auto) 0.0 (0.0-0.2) X10*3/uL Abs Immat Gran (auto) 0.02 (0.00-0.03) X10*3/uL Absolute Neuts (auto) 5.4 (2.0-8.3) x10*3/uL Absolute Nucleated RBC 0.000 (0.0-0.012) X10*3/uL Nucleated RBC % (auto) 0.0 (0.0-0.2) /100WBC Sodium 139 (135-145) mmol/L Potassium 3.9 (3.3-5.1) mmol/L Chloride 104 (96-108) mmol/L Carbon Dioxide 26 (22-29) mmol/L Anion Gap 13 (12-20) BUN 9 (9-16) mg/dL Creatinine 0.96 (0.5-1.4) mg/dL Estim Creat Clear Calc 89.3 Estimated GFR > 60 Random Glucose 80 (60-115) mg/dL Calcium 9.4 (8.4-10.2) mg/dL Total Bilirubin 0.3 (0.0-1.0) mg/dL Direct Bilirubin < 0.2 (0.0-0.5) mg/dL AST 19 (5-31) U/L ALT 22 (0-31) U/L Alkaline Phosphatase 73 (39-117) U/L Troponin I High Sens < 3.5 (<3.5-17.0) ng/L Total Protein 7.2 (6.5-8.0) g/dL Albumin 4.1 (3.5-5.0) g/dL ECG Data Attestation EKG: I personally reviewed and interpreted this ECG as follows: ECG interpretation date: 02/11/22 ECG interpretation time: 16:24 Prior ECG tracings: available for review Interpretation: Normal sinus rhythm, ventricular rate 84 beats per minute, normal MD interval, no ST segment elevations or depressions. No change from prior. Discharge Plan Discharge Clinical Impression: Muscle spasm of left shoulder Patient Disposition: Home, Self-Care Instructions: Muscle Spasm (ED) Additional Instructions: Your lab workup today was unremarkable. Your EKG was normal. Your pain is most likely muscular. Take the prescribed medications as needed for pain and discomfort. Recommend using a heating pad to the area several times per day to help relax the muscle fibers. Recommend gentle massage and stretching. Follow-up with your primary care doctor If you develop new or worsening symptoms call 911 or come back to the ER for further evaluation. Tu an?lisis de laboratorio de hoy no tuvo nada especial. Ross electrocardiograma fue normal. Lo m?s probable es que tu dolor sea muscular. [place] los medicamentos recetados seg?n sea necesario para el dolor y la incomodidad. Se recomienda utilizar mitch almohadilla t?rmica en la marguerite varias veces al d?a para ayudar a relajar las fibras musculares. Recomendar masajes suaves y estiramientos. Seguimiento con ross m?dico de atenci?n primaria Si desarrolla s?ntomas nuevos o que empeoran, llame al 911 o regrese a la andrei de emergencias para mitch evaluaci?n adicional. Prescriptions: New cyclobenzaprine 10 mg tablet 10 mg PO TID PRN (Reason: muscle spasm) Qty: 14 0RF ibuprofen 600 mg tablet 600 mg PO Q8H PRN (Reason: pain) Qty: 20 0RF lidocaine 5 % adhesive patch,medicated 1 patch topical DAILY Qty: 15 0RF Rx Instructions: leave on most painful area for up to 12 hrs No Action labetalol 200 mg tablet 1 tab PO BID clonidine HCl 0.2 mg tablet 1 tab PO BID oxybutynin chloride 10 mg tablet extended release 24hr 10 mg PO DAILY 90 Days Qty: 90 0RF cholecalciferol (vitamin D3) 50 mcg (2,000 unit) capsule 50 mcg PO DAILY pregabalin 75 mg capsule 75 mg PO BID meloxicam 7.5 mg tablet 7.5 mg PO BID PRN (Reason: pain) ketotifen fumarate 0.025 % (0.035 %) drops 1 drp ophthalmic (eye) BID Latuda 120 mg tablet 120 mg PO DAILY duloxetine 60 mg capsule,delayed release(DR/EC) 60 mg PO BID zolpidem 10 mg tablet 10 mg PO BEDTIME quetiapine 100 mg tablet 100 mg PO BEDTIME clonazepam 1 mg tablet 1 mg PO TID PRN famotidine [Pepcid] 20 mg tablet 20 mg PO BEDTIME Qty: 90 3RF metoclopramide HCl [Reglan] 5 mg tablet 5 mg PO QIDACHS Qty: 120 3RF Rx Instructions: beena un comprimido 30 minutos antes de las comidas sennosides [Natural Senna Laxative] 8.6 mg tablet 8.6 mg PO BEDTIME Qty: 90 3RF omeprazole 40 mg capsule,delayed release(DR/EC) 40 mg PO BID Qty: 180 3RF Rx Instructions: Beena 1 comprimido media hora antes del desayuno y 1 comprimido media hora antes de la child psychometrist.
== END 2022-02-11 17:03 | disposition home or self-care (01) ==
PROVIDERS: Emergency Provider Emergency Medicine; PCP Pediatrics
DX: M62.838 Other muscle spasm (principal); M25.512 Pain in left shoulder; I10 Essential (primary) hypertension; Z79.899 Other long term (current) drug therapy
CPT/HCPCS: 36415; 80053; 82248; 84484; 85025; 93005; 99283; 99284

== ENCOUNTER → 2022-04-01 09:31 | Outpatient (BNVA) | payer MEDICAID, SELFPAY | PROVIDERS: PCP Pediatrics; Referring Provider Pediatrics; Visit Provider Nurse Practitioner Family | DX: K21.9 Gastro-esophageal reflux disease without esophagitis (principal); K31.84 Gastroparesis; R10.31 Right lower quadrant pain | CPT/HCPCS: 99212 ==

== ENCOUNTER 2022-04-09 09:49 | Outpatient (REF) | payer MEDICAID, SELFPAY ==
--- NOTE | ~2022-04-09 | CT_ITS ---
EXAMINATION: CT ABDOMEN AND PELVIS WITHOUT CONTRAST CLINICAL INFORMATION: Right lower quadrant pain COMPARISON: Previous abdominal ultrasound June 2015 and pelvic ultrasound November 2019 TECHNIQUE: Multidetector volumetric imaging was performed from the superior aspect of the liver through the pubic symphysis. Sagittal and coronal reformatted images were obtained on the technologist's workstation. This CT examination was performed using dose optimization techniques as appropriate, variously including the following: *Automated exposure control *Adjustment of mA and/or kV according to patient size (this includes techniques or standardized protocols for targeted exams where dose is matched to indication/reason for exam; i.e. extremities or head) *Use of iterative reconstruction technique DLP: 636 mGy-cm FINDINGS: LUNG BASES: The visualized lung bases are unremarkable. LIVER, GALLBLADDER, AND BILIARY TREE: The liver is enlarged and low in attenuation suggestive of fatty infiltration. No focal liver lesion. The gallbladder is been removed. No biliary duct dilatation. PANCREAS: Unremarkable. SPLEEN: Unremarkable. ADRENAL GLANDS: Unremarkable. KIDNEYS AND URETERS: The kidneys are normal in size, shape, and attenuation. No hydronephrosis, hydroureter, or calculi seen. No perinephric stranding. BLADDER: Unremarkable. GASTROINTESTINAL TRACT: There is stool throughout the colon questionable for constipation. The small and large bowel are otherwise unremarkable. The appendix is unremarkable. ABDOMINAL WALL: Small umbilical hernia containing fat. LYMPH NODES: Normal. VASCULAR: Unremarkable. PELVIC VISCERA: Unremarkable. OSSEOUS STRUCTURES: Unremarkable. CT/CT abdomen pelvis wo IV con IMPRESSION: Enlarged fatty liver. Question mild constipation. Normal-appearing appendix. Fleischner guidelines were followed.
== END 2022-04-09 09:50 | disposition home or self-care (01) ==
LOC: HO.CT 09:49
PROVIDERS: PCP Pediatrics; Visit Provider Nurse Practitioner Family
DX: R10.31 Right lower quadrant pain (principal)
CPT/HCPCS: 74176

== ENCOUNTER 2022-06-13 10:45 | Outpatient (REF) | payer MEDICAID, SELFPAY ==
--- NOTE | ~2022-06-13 | MM_ITS ---
EXAMINATION: MM DIAGNOSTIC DIGITAL BREAST TOMOSYNTHESIS, BILATERAL TARGETED LEFT BREAST ULTRASOUND CLINICAL INFORMATION: Left breast nodule, upper inner quadrant, 4 cm from nipple. The lifetime risk of breast cancer based on the Tyrer-Cuzick Model is 17%. COMPARISON: Mammography: 08/10/2021 and studies dating back to 03/24/2018. TECHNIQUE: Digital breast tomosynthesis is performed in both the craniocaudal and mediolateral oblique views along with computer-aided detection (CAD). Synthesized 2D images are generated from the tomosynthesis. Targeted left breast ultrasound. FINDINGS: The breasts are almost entirely fatty (ACR BI-RADS breast composition Category a). There are no significant masses, abnormal calcifications, or other abnormalities. Targeted left breast ultrasound to region of abnormality did not demonstrate any abnormal cystic or solid mass. No region of abnormal distal sound shadowing. No edema within the tissues identified. Results are discussed with the patient at time of visit. MM/MM tomosynthesis diagnostic BI IMPRESSION: There are no significant changes from prior study. ASSESSMENT: BI-RADS 1: Negative. RECOMMENDATION: Routine annual mammography screening. This patient's information was entered into a reminder system with a target due date for their next mammogram.
== END 2022-06-13 10:46 | disposition home or self-care (01) ==
LOC: HO.MAMMO 10:45
PROVIDERS: Visit Provider Internal Medicine
DX: N63.22 Unspecified lump in the left breast, upper inner quadrant (principal)
CPT/HCPCS: 76642; 77062; 77066

== ENCOUNTER → 2022-06-25 09:51 | Outpatient (BNVA) | payer MEDICAID, SELFPAY | PROVIDERS: PCP Pediatrics; Visit Provider Nurse Practitioner Family | DX: K59.01 Slow transit constipation (principal); K31.84 Gastroparesis; K21.9 Gastro-esophageal reflux disease without esophagitis; K76.0 Fatty (change of) liver, not elsewhere classified; R10.31 Right lower quadrant pain | CPT/HCPCS: 99212 ==

== ENCOUNTER → 2022-06-27 13:11 | Outpatient (BNVA) | payer MEDICAID, SELFPAY | PROVIDERS: PCP Pediatrics; Visit Provider Nurse Practitioner Family | DX: Z13.89 Encounter for screening for other disorder (principal) ==

== ENCOUNTER 2022-09-10 10:58 | Outpatient (REF) | payer MEDICAID, SELFPAY ==
--- NOTE | ~2022-09-10 | MM_ITS ---
EXAMINATION: MM SCREENING DIGITAL BREAST TOMOSYNTHESIS, BILATERAL CLINICAL INFORMATION: Screening. Asymptomatic. The lifetime risk of breast cancer based on the Tyrer-Cuzick Model is 15.7%. COMPARISON: Mammography: June 13, 2022 and studies dating back to March 24, 2018. TECHNIQUE: Digital breast tomosynthesis is performed in both the craniocaudal and mediolateral oblique views along with computer-aided detection (CAD). Synthesized 2D images are generated from the tomosynthesis. FINDINGS: The breasts are almost entirely fatty (ACR BI-RADS breast composition Category a). There are no significant masses, abnormal calcifications, or other abnormalities. MM/MM tomosynthesis screening BI IMPRESSION: No significant changes ASSESSMENT: BI-RADS 1: Negative RECOMMENDATION: Routine annual mammography screening. This patient's information was entered into a reminder system with a target due date for their next mammogram.
== END 2022-09-10 10:59 | disposition home or self-care (01) ==
LOC: HO.MAMMO 10:58
PROVIDERS: PCP Pediatrics; Visit Provider Pediatrics
DX: Z12.31 Encounter for screening mammogram for malignant neoplasm of breast (principal)
CPT/HCPCS: 77063; 77067

== ENCOUNTER → 2022-09-20 09:42 | Outpatient (BNVA) | payer MEDICAID, SELFPAY | PROVIDERS: PCP Pediatrics; Visit Provider Nurse Practitioner Family | DX: K21.9 Gastro-esophageal reflux disease without esophagitis (principal); K59.04 Chronic idiopathic constipation; K31.84 Gastroparesis | CPT/HCPCS: 99212 ==

== ENCOUNTER 2022-10-23 15:36 | Outpatient (REF) | payer MEDICAID, SELFPAY | END 2022-10-23 15:37 | disposition home or self-care (01) | LOC: HO.LNP 15:36 | PROVIDERS: PCP Pediatrics; Visit Provider Obstetrics & Gynecology | DX: A60.00 Herpesviral infection of urogenital system, unspecified (principal) | CPT/HCPCS: 99212 ==

== ENCOUNTER 2022-10-23 16:03 | Outpatient (REF) | payer MEDICAID, SELFPAY ==
[2022-10-23 18:40] LABS: CT PCR NOT DETECTED (Not Detect.); NG PCR NOT DETECTED (Not Detect.)
[2022-10-24 08:56] LABS: BV Int Neg Control Negative (Negative); BV Int Pos Control Positive (Positive)
[2022-10-25 01:50] LABS: Syphilis Screen Nonreactive (Nonreactive)
[2022-10-25 03:03] LABS: HBsAGNum1 0.35 S/CO (0.00-0.99); HIV AB/AG Nonreactive (Nonreactive); HIV Num 1 0.06 S/CO (0.00-0.99); Hepatitis B Surface Antigen Negative (Negative); ~HepC Num1 0.11 S/CO (0.00-0.79); ~Hepatitis C Antibody Nonreactive (Nonreactive)
== END 2022-10-23 16:04 | disposition home or self-care (01) ==
LOC: HO.LAB 16:03
PROVIDERS: PCP Pediatrics; Visit Provider Obstetrics & Gynecology
DX: A60.00 Herpesviral infection of urogenital system, unspecified (principal)
CPT/HCPCS: 0353U; 86780; 86803; 87255; 87340; 87389; 87480; 87510; 87660

== ENCOUNTER → 2022-11-06 09:32 | Outpatient (BNVA) | payer MEDICAID, SELFPAY | PROVIDERS: PCP Pediatrics; Visit Provider Obstetrics & Gynecology | DX: N76.6 Ulceration of vulva (principal) | CPT/HCPCS: 99212 ==

== ENCOUNTER 2022-11-19 10:29 | Outpatient (AMB) | payer MEDICAID, SELFPAY ==
[2022-11-19 10:39] VITALS: BP 130/75; PULSE 72; BMI 35.9
--- NOTE | 2022-11-19 10:39 | A.OFFVIS_ITS ---
Intake Vital Signs 11/19/22 10:39 Height 5 ft 7 in Weight 229 lb 4.492 oz BMI 35.9 BP 130/75 Blood Pressure Location Lt brachial Position Sitting Pulse 72 Intake Visit Reasons: abdomial pain , nausea Intake Note: Ginger presents in office as a est.patient for a f/u for abdominal pain , nausea PT CC: pt reports having abdominal pain , GERD, bloating , vomiting pt denies any other GI Issues Forensic Dna Analyst Required: Yes Forensic Dna Analyst Language: Assistant Secretary Name: jenise [facility] [place] Accompanied by: Self / Same As Patient Allergies Sulfa (Sulfonamide Antibiotics) [SULFA(SULFONAMIDE ANTIBIOTICS)] Allergy (Mild, Verified 11/19/22 10:40) RASH acetaminophen [Percocet] Allergy (Unknown, Verified 11/19/22 10:40) itch oxycodone [Percocet] Allergy (Unknown, Verified 11/19/22 10:40) itch SEAFOOD Allergy (Unknown, Uncoded 11/19/22 10:40) SWELLING HPI abdomial pain , nausea HPI Details LAST VISIT GERD (gastroesophageal reflux disease) Continue on omeprazole twice a day. Patient can take famotidine at bedtime. Discussed with patient the importance of eating small meals due to her gastroparesis. Unable to tolerate Reglan any more. Discussed with patient avoiding dietary triggers and late night snacking. Staying upright for minimum 3 hours after meals discussed with patient. Chronic idiopathic constipation Long history of constipation, Senokot Colace and MiraLax are not really helping patient. Will order Motegrity. Please get a PA for patient. Patient also has a gastroparesis so this would be a better choice for her. Gastroparesis Patient diagnosed with gastroparesis in 2020. Patient was not moving her bowel was then currently she is moving her bowels better. Unable to tolerate Reglan will stop that. Patient can start taking Motegrity will try to get a PA. discussed with patient about diet for gastroparesis. List of food recommended as well as list of food to avoid given to patient. I will see patient in 3 months she just turned 47 and is agreeing to discuss colonoscopy next visit. Patient should also go for upper endoscopy due to her gastroparesis and also epigastric discomfort to rule out gastritis, esophagitis, gastric or peptic ulcer, H pylori. Patient is agreeable to this plan and verbalizes understanding of instructions. She was given the opportunity to ask questions and all questions answered. ? Thank you for allowing me to participate in her care Plan Medications New prucalopride (Motegrity) 2 mg PO DAILY 30 tabs 2RF K59.04 Refilled omeprazole Beena 1 comprimido media hora antes del desayuno y 1 comprimido media hora antes de la vj. 40 mg PO BID 180 caps 3RF K21.9 famotidine (Pepcid) 20 mg PO BEDTIME 90 tabs 3RF K21.9 Discontinued metoclopramide HCl (Reglan) beena un comprimido 30 minutos antes de las comidas Discontinued Reason: Doctor's Order 5 mg PO QIDACHS 120 tabs 3RF K31.84 TODAY'S VISIT: Patient is here today for follow-up. Patient reports that since the last time I have seen her she continues to have epigastric discomfort, dyspepsia without dysphagia or odynophagia. Patient reports that her symptoms usually happen after she eats and sometimes at nighttime. Patient reports that she is moving her bowels daily taking Motegrity. Patient is eating small amounts and more often. Patient denies melena, hematochezia, unintentional weight loss or ribbon like stools. Patient denies any nausea or vomiting. Denies any abdominal pain or discomfort. Denies any other GI concerning symptoms. [facility] Medical History Anxiety Bipolar 1 disorder Depression Fibromyalgia Gastroparesis GERD (gastroesophageal reflux disease) Hypertension Panic attacks Sleep apnea Urinary incontinence Surgical History History of carpal tunnel surgery History of esophagogastroduodenoscopy (EGD) Hx of section Hx of cholecystectomy Hx of tubal ligation Family History Mother HTN (hypertension) Diabetes Father HTN (hypertension) Paternal Aunt Breast cancer Social History Household Members: Children Alcohol intake: never Patient Tobacco Use Status: Former Tobacco user Female Reproductive History Menstrual Age of Menarche: 15 Review of Systems Const Denies weight gain and Denies weight loss ENT Reports no additional complaints, Denies dysphagia and Denies odynophagia Card Reports no additional complaints Resp Reports no additional complaints GI Reports abdominal pain (Epigastric), Denies belching, Denies melena, Denies bloating, Denies change in bowel habits, Denies dysphagia, Denies excessive flatus, Reports dyspepsia, Reports heartburn, Denies diarrhea, Denies loose stools, Reports nausea, Denies odynophagia and Denies vomiting Reports no additional complaints Musc Reports no additional complaints Neuro Reports no additional complaints Psych Reports no additional complaints Endo Reports no additional complaints Physical Exam Vital Signs: Last Vital Signs Pulse 72 11/19/22 10:39 BP 130/75 11/19/22 10:39 BMI result Body Mass Index 35.9 Const General: healthy appearing, no acute distress and well developed Nutritional Appearance: well nourished Orientation/consciousness: patient oriented x3 HEENT Head: Yes normal to inspection, Yes normocephalic and Yes atraumatic Face and sinus: Yes normal facial exam Mouth: Normal oral and palatal mucosa present Throat: Yes posterior oropharynx normal, Yes tonsils normal and Yes uvula midline Eyes General: appearance normal, both eyes and all related structures Neck Neck: Yes normal visual inspection, Yes full ROM and Yes trachea midline Thyroid: Thyroid normal Resp Effort & Inspection: normal respiratory effort, able to speak in complete sentences, no tracheal deviation and symmetric chest movement Auscultation: clear to auscultation bilaterally Cardio Rate: regular rate Heart sounds: S1 normal heart sound present and S2 normal heart sound present GI Inspection: Yes normal to inspection, No distended and Yes obesity Palpation (GI): Soft to palpation, not firm, nontender and No hepatosplenomegaly present Auscultation: normal bowel sounds General: Yes no CVA tenderness Back/Spine/Pelvis Back: no CVA tenderness Skin General skin exam: elasticity normal, turgor normal and dry skin Neuro General: patient oriented x3 Psych Appearance: grossly normal Mental Status: mental status grossly normal Speech and movement: Normal speech and movement present Affect: normal affect Assessment & Plan Assessment & Plan (1) GERD (gastroesophageal reflux disease): Code(s): K21.9 - Gastro-esophageal reflux disease without esophagitis Qualifiers: Esophagitis presence: esophagitis presence not specified Qualified Code(s): K21.9 - Gastro-esophageal reflux disease without esophagitis Plan: Patient continues to have epigastric discomfort with dyspepsia postprandially. Will start her on pantoprazole and sucralfate. Will stop omeprazole and famotidine. Discussed with patient avoiding dietary triggers in late night snacking. Staying upright for minimal 3 hours after meals discussed with patient. (2) Gastroparesis: Code(s): K31.84 - Gastroparesis Plan: Diagnosed with gastroparesis in 2020. Patient was encouraged again to try to avoid dietary triggers. Eat more often and smaller meals. Patient was also encouraged to try to lose weight. Low fiber diet discussed with patient. I will see her in 2 months we will discuss colonoscopy and going for upper endoscopy. Patient is agreeable to this plan and verbalizes understanding of instructions. She was given the opportunity to ask questions and all questions answered. Thank you for allowing me to participate in her care Medications: New sucralfate 1 g PO BEDTIME 30 tabs 4RF R19.7 - Diarrhea, unspecified pantoprazole 40 mg PO BID 60 tabs 4RF K21.9 - Gastro-esophageal reflux disease without esophagitis Discontinued sennosides Discontinued Reason: Patient no longer taking 17.2 mg (2 x 8.6 mg) PO BEDTIME 180 tabs 3RF constipation K59.00 - Constipation, unspecified omeprazole Beena 1 comprimido media hora antes del desayuno y 1 comprimido media hora antes de la vj. Discontinued Reason: Doctor's Order 40 mg PO BID 180 caps 3RF K21.9 - Gastro-esophageal reflux disease without esophagitis famotidine Discontinued Reason: Doctor's Order 20 mg PO BEDTIME 90 tabs 3RF K21.9 - Gastro-esophageal reflux disease without esophagitis Coding Level of Care Code Est Pt Level 3 (35513) Diagnoses GERD (gastroesophageal reflux disease) K21.9 Esophagitis presence: esophagitis presence not specified Gastroparesis K31.84 Time Spent (min) 30 Comment 20 minutes spent with patient and additional 10 minutes spent reviewing her r ecords
== END 2022-11-19 11:18 | disposition home or self-care (01) ==
PROVIDERS: PCP Pediatrics; Visit Provider Nurse Practitioner Family
DX: K21.9 Gastro-esophageal reflux disease without esophagitis (principal); K31.84 Gastroparesis
CPT/HCPCS: 99213

== ENCOUNTER → 2022-11-19 10:29 | Outpatient (BNVA) | payer MEDICAID, SELFPAY | PROVIDERS: PCP Pediatrics; Visit Provider Nurse Practitioner Family | DX: K21.9 Gastro-esophageal reflux disease without esophagitis (principal); K31.84 Gastroparesis | CPT/HCPCS: 99213 ==

== ENCOUNTER 2022-12-06 10:13 | Outpatient (REF) | payer MEDICAID, SELFPAY ==
[2022-12-06 15:30] LABS: Free T4 (Free Thyroxine) 0.95 ng/dL (0.71-1.85); Thyroid Stimulating Hormone 1.88 uIU/mL (0.32-4.0)
[2022-12-08 01:58] LABS: Follicle Stimulating Hormone 15.7 mIU/mL; Lutenizing Hormone 5.4 mIU/mL; Prolactin 5.8 ng/mL
[2022-12-13 08:59] LABS: HPV mRNA E6/E7 Detected (Not Detected)
[2022-12-14 22:23] LABS: Estradiol, Ultrasensitive 24 pg/mL
[2022-12-26 10:24] LABS: Testosterone, Total 20 ng/dL (2-45)
== END 2022-12-06 10:14 | disposition home or self-care (01) ==
LOC: HO.CHCLDS 10:13
PROVIDERS: Visit Provider Pediatrics
DX: Z12.4 Encounter for screening for malignant neoplasm of cervix (principal); Z11.51 Encounter for screening for human papillomavirus (HPV); R23.2 Flushing
CPT/HCPCS: 36415; 82670; 82681; 83001; 83002; 84146; 84403; 84439; 84443; 87624; 88142

== ENCOUNTER 2022-12-19 11:49 | Outpatient (AMB) | payer MEDICAID, SELFPAY ==
--- NOTE | 2022-12-19 11:57 | A.OFFVIS_ITS ---
Intake Vital Signs 12/19/22 11:58 Height 5 ft 3 in Weight 230 lb 2.601 oz BMI 40.8 BP 146/75 H Blood Pressure Location Lt brachial Position Sitting Pulse 87 Intake Visit Reasons: 3 month fu Intake Note: Millicent presents in office as a est.patient for a 3month f/u. PT CC: pt reports having bloating pt denies any other GI Issues Verify Rep Required: Yes Verify Rep Language: Indonesian Accompanied by: Self / Same As Patient Allergies Sulfa (Sulfonamide Antibiotics) [SULFA(SULFONAMIDE ANTIBIOTICS)] Allergy (Mild, Verified 12/19/22 11:57) RASH acetaminophen [Percocet] Allergy (Unknown, Verified 12/19/22 11:57) itch oxycodone [Percocet] Allergy (Unknown, Verified 12/19/22 11:57) itch SEAFOOD Allergy (Unknown, Uncoded 12/19/22 11:57) SWELLING HPI 3 month fu HPI Details LAST VISIT GERD (gastroesophageal reflux disease) Patient continues to have epigastric discomfort with dyspepsia postprandially. Will start her on pantoprazole and sucralfate. Will stop omeprazole and famot idine. Discussed with patient avoiding dietary triggers in late night snacking. Staying upright for minimal 3 hours after meals discussed with patient. Gastroparesis Diagnosed with gastroparesis in 2020. Patient was encouraged again to try to avoid dietary triggers. Eat more often and smaller meals. Patient was also encouraged to try to lose weight. Low fiber diet discussed with patient. I will see her in 2 months we will discuss colonoscopy and going for upper endoscopy. Patient is agreeable to this plan and verbalizes understanding of instructions. She was given the opportunity to ask questions and all questions answered. ? 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 Discontinued Reason: Doctor's Order 40 mg PO BID 180 caps 3RF K21.9 famotidine Discontinued Reason: Doctor's Order 20 mg PO BEDTIME 90 tabs 3RF K21.9 TODAY'S VISIT Patient is here today for follow-up patient reports that she has been doing better, occasional postprandial abdominal bloating. Patient states that she is trying to eat smaller meals. States that she is moving her bowels better. As mentioned above patient has history of gastroparesis, was able to tolerate Reglan for short period of time. Has been not taking it for over a year. Currently patient is on Motegrity and is able to move her bowels. Patient believes that she empties her bowels completely. Patient wants to lose weight, however due to gastroparesis she is afraid that she might not be a good candidate. Patient denies dyspepsia, dysphagia or odynophagia. Denies any melena, hematochezia, unintentional weight loss or ribbon like stools. [facility] Medical History Anxiety Bipolar 1 disorder Depression Fibromyalgia Gastroparesis GERD (gastroesophageal reflux disease) Hypertension Panic attacks Sleep apnea Urinary incontinence Surgical History History of carpal tunnel surgery History of esophagogastroduodenoscopy (EGD) Hx of section Hx of cholecystectomy Hx of tubal ligation Family History Mother HTN (hypertension) Diabetes Father HTN (hypertension) Paternal Aunt Breast cancer Social History Household Members: Children Alcohol intake: never Patient Tobacco Use Status: Former Tobacco user Female Reproductive History Menstrual Age of Menarche: 15 Review of Systems Const Denies weight gain and Denies weight loss ENT Reports no additional complaints, Denies dysphagia and Denies odynophagia Card Reports no additional complaints Resp Reports no additional complaints GI Denies abdominal pain, Denies belching, Denies melena, Reports bloating, Denies change in bowel habits, Denies dysphagia, Denies excessive flatus, Denies dyspepsia, Denies heartburn, Denies diarrhea, Denies loose stools, Denies nausea, Denies odynophagia and Denies vomiting Reports no additional complaints Musc Reports no additional complaints Neuro Reports no additional complaints Psych Reports no additional complaints Endo Reports no additional complaints Physical Exam Vital Signs: Last Vital Signs Pulse 87 12/19/22 11:58 BP 146/75 H 12/19/22 11:58 BMI result Body Mass Index 40.8 Const General: healthy appearing, no acute distress and well developed Nutritional Appearance: obese Orientation/consciousness: patient oriented x3 HEENT Head: Yes normal to inspection, Yes normocephalic and Yes atraumatic Face and sinus: Yes normal facial exam Mouth: Normal oral and palatal mucosa present Throat: Yes posterior oropharynx normal, Yes tonsils normal and Yes uvula midline Eyes General: appearance normal, both eyes and all related structures Neck Neck: Yes normal visual inspection, Yes full ROM and Yes trachea midline Thyroid: Thyroid normal Resp Effort & Inspection: normal respiratory effort, able to speak in complete senten yogi, no tracheal deviation and symmetric chest movement Auscultation: clear to auscultation bilaterally Cardio Rate: regular rate Heart sounds: S1 normal heart sound present and S2 normal heart sound present GI Inspection: Yes normal to inspection, No distended and Yes obesity Palpation (GI): Soft to palpation, not firm, nontender and No hepatosplenomegaly present Auscultation: normal bowel sounds General: Yes no CVA tenderness Back/Spine/Pelvis Back: no CVA tenderness Skin General skin exam: elasticity normal, turgor normal and dry skin Neuro General: patient oriented x3 Psych Appearance: grossly normal Mental Status: mental status grossly normal Speech and movement: Normal speech and movement present Affect: normal affect Assessment & Plan Assessment & Plan (1) Gastroparesis: Code(s): K31.84 - Gastroparesis Plan: Continue small meals and more often. Continue Motegrity. (2) GERD (gastroesophageal reflux disease): Code(s): K21.9 - Gastro-esophageal reflux disease without esophagitis Qualifiers: Esophagitis presence: esophagitis presence not specified Qualified Code(s): K21.9 - Gastro-esophageal reflux disease without esophagitis Plan: Continue pantoprazole twice a day and sucralfate at bedtime. Discussed with patient avoiding dietary triggers, eating smaller meals. Avoid late night snacking. Staying upright for minimum 3 hours after meals discussed with patient. (3) Screen for colon cancer: Code(s): Z12.11 - Encounter for screening for malignant neoplasm of colon Plan: Schedule patient for colonoscopy and upper endoscopy. Patient denies any melena, hematochezia, unintentional weight loss or ribbon like stools. Patient denies any family history of colorectal cancer. History of sleep apnea. No issues with anesthesia in the past. Patient is not on any anticoagulation medication. Please remind patient to stop taking iron week before the procedure. What to expect before during and after the procedure discussed with patient. The importance of good bowel prep and clear liquid diet days before the procedure discussed with patient. Dulcolax and split MiraLax prep will be sent to pharmacy. I will see patient after the procedure, sooner on as needed basis. Patient is agreeable to this plan and verbalizes understanding of instructions. She was given the opportunity to ask questions and all questions answered. Thank you for allowing me to participate in her care Orders: Referrals Bariatric Surgery Referral E66.9 - Obesity, unspecified, K31.84 - Gastroparesis, G47.33 - Obstructive sleep apnea (adult) (pediatric) Coding Level of Care Code Est Pt Level 4 (86117) Diagnoses Gastroparesis K31.84 GERD (gastroesophageal reflux disease) K21.9 Esophagitis presence: esophagitis presence not specified Screen for colon cancer Z12.11 Time Spent (min) 35 Comment 20 minutes spent with patient and additional 15 minutes spent reviewing her records
[2022-12-19 11:58] VITALS: BP 146/75; PULSE 87; BMI 40.8
== END 2022-12-19 12:34 | disposition home or self-care (01) ==
PROVIDERS: Visit Provider Nurse Practitioner Family
DX: K31.84 Gastroparesis (principal); K21.9 Gastro-esophageal reflux disease without esophagitis; Z12.11 Encounter for screening for malignant neoplasm of colon
CPT/HCPCS: 99214

== ENCOUNTER → 2022-12-19 11:49 | Outpatient (BNVA) | payer MEDICAID, SELFPAY | PROVIDERS: Visit Provider Nurse Practitioner Family | DX: Z12.11 Encounter for screening for malignant neoplasm of colon (principal); K31.84 Gastroparesis; K21.9 Gastro-esophageal reflux disease without esophagitis | CPT/HCPCS: 99214 ==

== ENCOUNTER 2023-01-07 09:33 | Outpatient (REF) | payer MEDICAID, SELFPAY ==
--- NOTE | ~2023-01-07 | XR_ITS ---
EXAMINATION: XR WRIST, LEFT XR HAND, LEFT CLINICAL INFORMATION: Pain. COMPARISON: None available. TECHNIQUE: PA, lateral, and oblique views of the left hand and wrist are submitted, together with a dedicated navicular view. FINDINGS: LEFT WRIST: The bones and soft tissues are normal. No fracture. Alignment is anatomic. Joint spaces are maintained. No erosions or soft tissue calcifications. LEFT HAND: The bones and soft tissues are normal. No fracture. Alignment is anatomic. Joint spaces are maintained. No erosions or soft tissue calcifications. XR/XR hand wrist LT IMPRESSION: Normal left hand and wrist.
== END 2023-01-07 09:34 | disposition home or self-care (01) ==
LOC: HO.XRAY 09:33
PROVIDERS: PCP Pediatrics; Visit Provider Family Medicine
DX: M79.642 Pain in left hand (principal); M79.641 Pain in right hand
CPT/HCPCS: 73110; 73130

== ENCOUNTER 2023-02-17 11:00 | Outpatient (RCR) | payer MEDICAID, SELFPAY | END 2023-03-04 15:51 | disposition home or self-care (01) | LOC: HO.OT 11:00 | PROVIDERS: PCP Pediatrics; Visit Provider Family Medicine | DX: M79.641 Pain in right hand (principal); M79.642 Pain in left hand | CPT/HCPCS: 97035; 97110; 97140; 97165 ==

== ENCOUNTER 2023-02-18 11:02 | Day surgery (SDC) | payer MEDICAID, SELFPAY ==
[2023-02-14 11:41] VITALS: BMI 40.7
--- NOTE | 2023-02-17 10:06 | P.CONAN_ITS ---
Documented by User: Magali Chavez NP 02/17/23 10:07 HPI - Anesthesia Eval Consult details Narrative: 47yo F for Upper Endoscopy and Colonoscopy s/p tubal PMFSH Active Problems Active Problems: All Active Problems (Updated 11/06/22 @ 09:49 by Ricky Leija MD) Genital labial ulcer (Acute) Herpes genitalis (Acute) Gastroparesis (Acute) GERD (gastroesophageal reflux disease) (Acute) Overactive bladder (Acute) Dysplasia of cervix, low grade (FATUMA 1) (Acute) LGSIL on Pap smear of cervix (Acute) Well woman exam (Acute) Urinary incontinence (Acute) Hypertension (Acute) Past Medical History Medical History Anxiety Bipolar 1 disorder Depression Fibromyalgia Gastroparesis GERD (gastroesophageal reflux disease) Hypertension Panic attacks Sleep apnea Urinary incontinence Family History Family History Mother HTN (hypertension) Diabetes Father HTN (hypertension) Paternal Aunt Breast cancer Family history of problems with anesthesia: No Surgical History Surgical History History of carpal tunnel surgery History of esophagogastroduodenoscopy (EGD) Hx of section Hx of cholecystectomy Hx of tubal ligation History of Problems with Anesthesia: No Social History Social History Household Members: Children Alcohol intake: never Patient Tobacco Use Status: Never used Tobacco Use of substances other than those prescribed or required for medical reasons: No Are you DNR?: No Advance Directives: No Advance Directives Information Provided: Yes Meds Allergies Allergy/AdvReac Type Severity Reaction Status Date / Time acetaminophen [Percocet] Allergy Severe itch Verified 02/18/23 12:14 oxycodone [Percocet] Allergy Severe itch Verified 02/18/23 12:14 Sulfa (Sulfonamide Allergy Mild RASH Verified 02/18/23 12:14 Antibiotics) [SULFA(SULFONAMIDE ANTIBIOTICS)] SEAFOOD Allergy Severe SWELLING Uncoded 02/18/23 12:14 Home Medications Medication Instructions Recorded Confirmed Last Taken Type clonidine HCl 0.2 mg tablet 1 tab PO BID 02/05/21 02/18/23 02/18/23 History labetalol 200 mg tablet 1 tab PO BID 02/05/21 02/18/23 02/18/23 History cholecalciferol (vitamin D3) 50 50 mcg PO DAILY 10/26/21 02/18/23 Unknown History mcg (2,000 unit) capsule clonazepam 1 mg tablet 1 mg PO TID PRN Anxiety 10/26/21 02/18/23 Unknown History duloxetine 60 mg capsule,delayed 60 mg PO BID 10/26/21 02/18/23 02/18/23 History release ketotifen fumarate 0.025 % (0.035 1 drp ophthalmic (eye) BID 10/26/21 02/18/23 Unknown History %) eye drops lurasidone 120 mg tablet (Latuda) 120 mg PO DAILY 10/26/21 02/18/23 02/18/23 History quetiapine 100 mg tablet 100 mg PO BEDTIME 10/26/21 02/18/23 Unknown History zolpidem 10 mg tablet 10 mg PO BEDTIME 10/26/21 02/18/23 Unknown History ferrous sulfate 325 mg (65 mg 325 mg PO 06/27/22 06/27/22 02/15/23 History iron) tablet (FeroSul) pregabalin 100 mg capsule 100 mg PO BID 02/14/23 02/14/23 Unknown History Exam Exam Date and Time: February 17, 2023 1006 Height,Weight and Vital Signs: Height 5 ft 3 in Weight 104.326 kg Assessment and Plan Assessment Anesthesia Assessment: Chart Reviewed Final Anesthetic Review Family History of Problems with Anesthesia: No History of Problems with Anesthesia: No Documented by User: Selvin Morillo MD 02/18/23 12:49 [facility] Past Medical History Medical History Anxiety Bipolar 1 disorder Depression Fibromyalgia Gastroparesis GERD (gastroesophageal reflux disease) Hypertension Panic attacks Sleep apnea Urinary incontinence Patient : No Family History Family History Mother HTN (hypertension) Diabetes Father HTN (hypertension) Paternal Aunt Breast cancer Surgical History Surgical History History of carpal tunnel surgery History of esophagogastroduodenoscopy (EGD) Hx of section Hx of cholecystectomy Hx of tubal ligation Social History Social History Household Members: Children Alcohol intake: never Patient Tobacco Use Status: Never used Tobacco Use of substances other than those prescribed or required for medical reasons: No Are you DNR?: No Advance Directives: No Advance Directives Information Provided: Yes Meds Allergies Allergy/AdvReac Type Severity Reaction Status Date / Time acetaminophen [Percocet] Allergy Severe itch Verified 02/18/23 12:14 oxycodone [Percocet] Allergy Severe itch Verified 02/18/23 12:14 Sulfa (Sulfonamide Allergy Mild RASH Verified 02/18/23 12:14 Antibiotics) [SULFA(SULFONAMIDE ANTIBIOTICS)] SEAFOOD Allergy Severe SWELLING Uncoded 02/18/23 12:14 Home Medications Medication Instructions Recorded Confirmed Last Taken Type clonidine HCl 0.2 mg tablet 1 tab PO BID 02/05/21 02/18/23 02/18/23 History labetalol 200 mg tablet 1 tab PO BID 02/05/21 02/18/23 02/18/23 History cholecalciferol (vitamin D3) 50 50 mcg PO DAILY 10/26/21 02/18/23 Unknown History mcg (2,000 unit) capsule clonazepam 1 mg tablet 1 mg PO TID PRN Anxiety 10/26/21 02/18/23 Unknown History duloxetine 60 mg capsule,delayed 60 mg PO BID 10/26/21 02/18/23 02/18/23 History release ketotifen fumarate 0.025 % (0.035 1 drp ophthalmic (eye) BID 10/26/21 02/18/23 Unknown History %) eye drops lurasidone 120 mg tablet (Latuda) 120 mg PO DAILY 10/26/21 02/18/23 02/18/23 History quetiapine 100 mg tablet 100 mg PO BEDTIME 10/26/21 02/18/23 Unknown History zolpidem 10 mg tablet 10 mg PO BEDTIME 10/26/21 02/18/23 Unknown History ferrous sulfate 325 mg (65 mg 325 mg PO 06/27/22 06/27/22 02/15/23 History iron) tablet (FeroSul) pregabalin 100 mg capsule 100 mg PO BID 02/14/23 02/14/23 Unknown History Exam Airway Mallampati Class: I TM Dist: <=3cm Neck ROM: Full Loose/Missing/Broken Teeth: No Heart: ok Lungs: ok Assessment and Plan Assessment Anesthesia Assessment: Anesthesia Plan Discussed Final Anesthetic Review NPO: Yes ASA Class: III Final Preanesthetic Review: No Changes in Pt Med Stat, Meds/Allgs Chart Reviewed, Consent Obtained/Reviewed and Anes Risks/Benef Reviewed Patient Risk: Intermediate Procedure Risk: Intermediate Anesthetic Plan Anesthetic Plan: MAC: and Agree w/ Assess. and Plan Disposition: Standard PACU
[2023-02-18 12:23] VITALS: BP 165/85; PULSE 78; RESP 16; TEMP 37.4; O2SAT 100; BMI 36.3
--- NOTE | 2023-02-18 12:38 | MHC.SHP ---
Pre-Procedural Eval Section A Date of Service: 02/18/23 Section B Chief Complaint: GERD, screening Details of Present Illness: Medical History Anxiety Bipolar 1 disorder Depression Fibromyalgia Gastroparesis GERD (gastroesophageal reflux disease) Hypertension Panic attacks Sleep apnea Urinary incontinence Surgical History History of carpal tunnel surgery History of esophagogastroduodenoscopy (EGD) Hx of section Hx of cholecystectomy Hx of tubal ligation Relevant Social History: Tobacco Use (former) Present Medications: see Short Stay Collaborative assessment History of Previous Operations: No relevant previous surgery Allergies: Allergies Allergy/AdvReac Type Severity Reaction Status Date / Time acetaminophen [Percocet] Allergy Severe itch Verified 02/18/23 12:14 oxycodone [Percocet] Allergy Severe itch Verified 02/18/23 12:14 Sulfa (Sulfonamide Allergy Mild RASH Verified 02/18/23 12:14 Antibiotics) [SULFA(SULFONAMIDE ANTIBIOTICS)] SEAFOOD Allergy Severe SWELLING Uncoded 02/18/23 12:14 Review of Systems Review of Systems Comment: 10 point ROS negative Exam Exam Comment: Gen?appear:?No?acute?distress HEENT:?no?icterus Chest:?No?overt?resp?distress Abd:?soft,?nontender,?nondistended Psych:?Stable?affect,?answering?questions?appropriately? Neuro:?A/Ox3?noted?to?move?all?extremities?spontaneously? Ext:?no?peripheral?edema? Plan Diagnosis/Plan: Unchanged I have reviewed the history and physical and performed a pertinent physical examination on my patient. No changes have occurred unless specified. Time Spent With Patient Time: Total time managing care of this patient today ____ minutes.
--- NOTE | 2023-02-18 12:41 | P.OP_ITS ---
Operative Note Operative Note Date of Service: 02/18/23 Narrative: Procedure:?Esophagogastroduodenoscopy and colonoscopy Endoscopist:?Rajani Cline MD Indication:?GERD, screening Anesthesia Provider:?Dr Selvin Morillo Anesthesia Type:?MAC Instrument:?Olympus GIF-H190, [id number]-[id number] EGD Procedure:?? The procedure, indications, preparation and potential complications were reviewed with the patient, who indicated understanding and gave written informed consent to proceed with the help of welt insole channeler. A physical exam was performed. The endoscope was introduced through the mouth, and advanced to the second part of duodenum. The mucosa was carefully examined on slow withdrawal of the endoscope. There were no immediate complications. Patient tolerated the procedure well. EGD Findings:? * Esophagus:? Mild erythema and erosion noted at the level of GE junction at 40 cm. The Z-line was irregular with salmon colored mucosa extending up to 38 cm. Cold forceps biopsies were taken to r/o Bhatia's esophagus. * Stomach:? Normal gastric mucosa. Small to medium sized polyps were noted in the fundus and body of the stomach. Cold forceps biopsies were taken and sent for histology. Retroflexion performed in the fundus. * Duodenum:? Normal duodenal mucosa to the extent visualised. Colonoscopy Procedure:? The patient was then turned for the colonoscopy. A digital rectal exam was performed which was normal.? A distal attachment cap was affixed to the tip of the scope and the colonoscope was then inserted through the anus and advanced through the colon to the cecum at 80 cm and terminal ileum. Appendiceal orifice and ileocecal valve were identified. Mucosa was carefully examined under high definition white light as the instrument was slowly withdrawn in a retrograde panoramic fashion. Retroflexion was performed in ascending colon and rectum. The procedure was not difficult. There were no immediate obvious complications. The quality of the prep was BBPS: 2+2+3 = adequate Withdrawal time: 10 minutes Limitations: No limitation. Findings: Mucosa: Normal mucosa to cecum and terminal ileum. Protruding lesions: * Medium internal hemorrhoids without stigmata of recent bleeding. Impression: 1. Irregular Z line (biopsy) 2. Grade A esophagitis 3. Gastric polyps 4. Normal duodenum 5. Normal colon and terminal ileum mucosa 6. Internal hemorrhoids Recommendations:?? * Await pathology results. * Cont PPI * If bhatia's esophagus confirmed on biopsies, repeat EGD will be contingent on presence and extent of dysplasia. * Repeat colonoscopy for asymptomatic colon cancer screening in 10 years.
[2023-02-18 13:36] VITALS: BP 120/70; PULSE 79; RESP 16; TEMP 36.4; O2SAT 99
[2023-02-18 13:58] VITALS: BP 135/74; PULSE 71; RESP 18; TEMP 36.1; O2SAT 100
== END 2023-02-18 14:37 | disposition home or self-care (01) ==
PROVIDERS: PCP Pediatrics; Visit Provider Internal Medicine
PROC: (CPT 45378; principal; 2023-02-18 12:50)
DX: Z12.11 Encounter for screening for malignant neoplasm of colon (principal); K64.8 Other hemorrhoids; K21.9 Gastro-esophageal reflux disease without esophagitis; K31.84 Gastroparesis; K31.7 Polyp of stomach and duodenum; K20.80 Other esophagitis without bleeding; K22.89 Other specified disease of esophagus; M79.7 Fibromyalgia; I10 Essential (primary) hypertension; G47.33 Obstructive sleep apnea (adult) (pediatric); E66.9 Obesity, unspecified; Z68.41 Body mass index [BMI] 40.0-44.9, adult; Z88.2 Allergy status to sulfonamides; Z88.8 Allergy status to other drugs, medicaments and biological substances; Z79.899 Other long term (current) drug therapy; Z90.49 Acquired absence of other specified parts of digestive tract; Z87.891 Personal history of nicotine dependence
CPT/HCPCS: 45378; 43239; 88305; 88342; J3010

== ENCOUNTER → 2023-02-18 11:02 | Outpatient (BNV) | payer MEDICAID, SELFPAY | PROVIDERS: PCP Pediatrics; Visit Provider Internal Medicine | DX: Z12.11 Encounter for screening for malignant neoplasm of colon (principal); K64.0 First degree hemorrhoids; K21.9 Gastro-esophageal reflux disease without esophagitis; K20.90 Esophagitis, unspecified without bleeding | CPT/HCPCS: 43239; 45378 ==

== ENCOUNTER 2023-02-24 14:23 | Outpatient (AMB) | payer MEDICAID, SELFPAY ==
--- NOTE | 2023-02-24 14:38 | A.OFFVIS_ITS ---
Intake Vital Signs 02/24/23 14:39 Height 5 ft 6 in Weight 227 lb BMI 36.6 BP 146/73 H Blood Pressure Location Rt brachial Position Sitting Pulse 69 Intake Visit Reasons: s/p colon Son Intake Note: Patient presents to in office visit today in follow up of colonoscopy and EGD. Patient underwent colo/EGD with Dr. Cline on 02/19/23. CC: Patient c/o sensation of fullness, nausea, and pain from esophagus since after procedure. Denies other GI symptoms today. Allergies acetaminophen [Percocet] Allergy (Severe, Verified 02/24/23 14:42) itch oxycodone [Percocet] Allergy (Severe, Verified 02/24/23 14:42) itch Sulfa (Sulfonamide Antibiotics) [SULFA(SULFONAMIDE ANTIBIOTICS)] Allergy (Mild, Verified 02/24/23 14:42) RASH SEAFOOD Allergy (Severe, Uncoded 02/18/23 12:14) SWELLING HPI s/p colon Son HPI Details LAST VISIT (1) Encounter for screening colonoscopy: Comment: Patient prefers to hold off on scheduling 6 index screening colonoscopy she is having cardiac issues that she wants addressed prior to, cardiology referral p ending She is well has some emotional issues she is dealing with at this time with her family We will await for further referral. UPPER ENDOSCOPY AND COLONOSCOPY EGD Findings:? * Esophagus:? Mild erythema and erosion noted at the level of GE junction at 40 cm. The Z-line was irregular with salmon colored mucosa extending up to 38 cm. Cold forceps biopsies were taken to r/o Bhatia's esophagus. * Stomach:? Normal gastric mucosa. Small to medium sized polyps were noted in the fundus and body of the stomach. Cold forceps biopsies were taken and sent for histology. Retroflexion performed in the fundus. * Duodenum:? Normal duodenal mucosa to the extent visualised. Findings: Mucosa: Normal mucosa to cecum and terminal ileum. Protruding lesions: * Medium internal hemorrhoids without stigmata of recent bleeding. Impression: 1. Irregular Z line (biopsy) 2. Grade A esophagitis 3. Gastric polyps 4. Normal duodenum 5. Normal colon and terminal ileum mucos a 6. Internal hemorrhoids Recommendations:?? * Await pathology results. * Cont PPI * If bhatia's esophagus confirmed on biopsies, repeat EGD will be contingent on presence and extent of dysplasia. * Repeat colonoscopy for asymptomatic colon cancer screening in 10 years. PATHOLOGY RESULTS Diagnosis A. Gastric polyp: Fundic gland polyp with minimal chronic inactive inflammation; negative for H pylori, intestinal metaplasia and dysplasia. B. Esophagus, lower, biopsy: Squamocolumnar mucosa with minimal chronic inactive inflammation; negative for intestinal metaplasia and dysplasia TODAY'S VISIT Patient today for follow-up and to discuss upper colonoscopy. Patient denies any ill effects from the prep, anesthesia or procedure itself. However patient does report epigastric discomfort and she is worried that it is due to biopsy of her stomach polyp. Upper endoscopy and colonoscopy results discussed with patient. Patient reports that she has been due moving her bowels better now that she is taking Motegrity. Patient reports that her feeling of fullness has decreased. Occasional epigastric discomfort depending on what she eats. Patient admits that when she eats occasionally late at night she will have acid reflux with dyspepsia. Patient denies dysphagia or odynophagia. Patient denies melena, hematochezia, unintentional weight loss or ribbon like stools. Patient reports occasional postprandial abdominal bloating. Patient reports that she is trying to avoid food that is high in fat or fried. Patient states she avoids eating food from fast food restaurants. [facility] Medical History Gastroparesis Urinary incontinence Hypertension GERD (gastroesophageal reflux disease) Panic attacks Anxiety Bipolar 1 disorder Sleep apnea Fibromyalgia Depression Surgical History H/O colonoscopy Hx of tubal ligation History of esophagogastroduodenoscopy (EGD) Hx of cholecystectomy Hx of section History of carpal tunnel surgery Family History Mother HTN (hypertension) Diabetes Father HTN (hypertension) Paternal Aunt Breast cancer Social History Household Members: Children Alcohol intake: never Patient Tobacco Use Status: Never used Tobacco Female Reproductive History Menstrual Age of Menarche: 15 Review of Systems Const Denies weight gain and Denies weight loss ENT Reports no additional complaints, Denies dysphagia and Denies odynophagia Card Reports no additional complaints Resp Reports no additional complaints GI Denies abdominal pain, Denies belching, Denies melena, Denies bloating, Denies change in bowel habits, Denies dysphagia, Denies excessive flatus, Denies dyspepsia, Reports heartburn, Denies diarrhea, Denies loose stools, Denies nausea, Denies odynophagia and Denies vomiting Reports no additional complaints Musc Reports no additional complaints Neuro Reports no additional complaints Psych Reports no additional complaints Endo Reports no additional complaints Physical Exam Vital Signs: Last Vital Signs Pulse 69 02/24/23 14:39 BP 146/73 H 02/24/23 14:39 BMI result Body Mass Index 36.6 Const General: healthy appearing, no acute distress and well developed Nutritional Appearance: obese Orientation/consciousness: patient oriented x3 HEENT Head: Yes normal to inspection, Yes normocephalic and Yes atraumatic Face and sinus: Yes normal facial exam Mouth: Normal oral and palatal mucosa present Throat: Yes posterior oropharynx normal, Yes tonsils normal and Yes uvula midline Eyes General: appearance normal, both eyes and all related structures Neck Neck: Yes normal visual inspection, Yes full ROM and Yes trachea midline Thyroid: Thyroid normal Resp Effort & Inspection: normal respiratory effort, able to speak in complete sentences, no tracheal deviation and symmetric chest movement Auscultation: clear to auscultation bilaterally Cardio Rate: regular rate Heart sounds: S1 normal heart sound present and S2 normal heart sound present GI Inspection: Yes normal to inspection, No distended and Yes obesity Palpation (GI): Soft to palpation, not firm, nontender and No hepatosplenomegaly present Auscultation: normal bowel sounds General: Yes no CVA tenderness Back/Spine/Pelvis Back: no CVA tenderness Skin General skin exam: elasticity normal, turgor normal and dry skin Neuro General: patient oriented x3 Psych Appearance: grossly normal Mental Status: mental status grossly normal Assessment & Plan Assessment & Plan (1) GERD (gastroesophageal reflux disease): Code(s): K21.9 - Gastro-esophageal reflux disease without esophagitis Qualifiers: Esophagitis presence: esophagitis presence not specified Qualified Code(s): K21.9 - Gastro-esophageal reflux disease without esophagitis (2) Gastroparesis: Code(s): K31.84 - Gastroparesis (3) Chronic idiopathic constipation: Code(s): K59.04 - Chronic idiopathic constipation (4) Status post colonoscopy: Code(s): Z98.890 - Other specified postprocedural states Plan Continue Motegrity. Discussed with patient avoiding dietary triggers in late night snacking. Staying upright for minimum 3 hours after meals discussed with patient. Patient can continue taking his pantoprazole twice a day, however discussed with patient that we will decrease it to once a day next visit. Patient can continue taking sucralfate at bedtime. She was encouraged to eat smaller meals and more often. To prevent abdominal bloating patient was encouraged to making sure that she drinks plenty fluids so she can evacuate her bowels better as well as increase exercise. Weight loss was encouraged. I will see patient in 2 months, sooner on as needed basis. Patient is agreeable to this plan and understanding of instructions. She was given the opportunity to ask questions and all questions answered. Thank you for allowing me to participate in her care Coding Level of Care Code Est Pt Level 4 (40342) Diagnoses Gastroesophageal reflux disease, unspecified whether esophagitis present K21.9 Esophagitis presence: esophagitis presence not specified Gastroparesis K31.84 Chronic idiopathic constipation K59.04 Status post colonoscopy Z98.890 Time Spent (min) 35 Comment 20 minutes spent with patient and additional 15 minutes spent reviewing her records
[2023-02-24 14:39] VITALS: BP 146/73; PULSE 69; BMI 36.6
== END 2023-02-24 15:07 | disposition home or self-care (01) ==
PROVIDERS: PCP Pediatrics; Visit Provider Nurse Practitioner Family
DX: K21.9 Gastro-esophageal reflux disease without esophagitis (principal); K31.84 Gastroparesis; K59.04 Chronic idiopathic constipation; Z98.890 Other specified postprocedural states
CPT/HCPCS: 99214

== ENCOUNTER → 2023-02-24 14:23 | Outpatient (BNVA) | payer MEDICAID, SELFPAY | PROVIDERS: PCP Pediatrics; Visit Provider Nurse Practitioner Family | DX: K21.9 Gastro-esophageal reflux disease without esophagitis (principal); K59.04 Chronic idiopathic constipation; K31.84 Gastroparesis; Z98.890 Other specified postprocedural states | CPT/HCPCS: 99212 ==

== ENCOUNTER 2023-03-21 08:28 | Outpatient (AMB) | payer MEDICAID, SELFPAY ==
--- NOTE | 2023-03-21 08:29 | MHC.OFFVIS ---
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 Patient reports that she has history of bilateral carpal tunnel release. She has done OT with no releif. Current symptoms have been present for about 1 year now. She has stiffness in bilateral thumbs. 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 Allergies acetaminophen [Percocet] Allergy (Severe, Verified 02/24/23 14:42) itch oxycodone [Percocet] Allergy (Severe, Verified 02/24/23 14:42) itch Sulfa (Sulfonamide Antibiotics) [SULFA(SULFONAMIDE ANTIBIOTICS)] Allergy (Mild, Verified 02/24/23 14:42) RASH SEAFOOD Allergy (Severe, Uncoded 02/18/23 12:14) SWELLING Medication List - Last Reconciled 03/21/23 by Freda Quintana MD cholecalciferol (vitamin D3) 50 mcg PO DAILY clonazepam 1 mg PO TID PRN clonidine HCl 1 tab PO BID duloxetine 60 mg PO BID ferrous sulfate (FeroSul) 325 mg PO ketotifen fumarate 0.025%(0.035%) 1 drp ophthalmic (eye) BID labetalol 1 tab PO BID lisinopril 10 mg PO QAM lurasidone (Latuda) 120 mg PO DAILY pantoprazole 40 mg PO BID pregabalin 100 mg PO BID prucalopride (Motegrity) 2 mg PO DAILY quetiapine 50 - 100 mg PO BEDTIME sucralfate 1 g PO BEDTIME zolpidem 10 mg PO BEDTIME HPI HPI Comments History of Present Illness Details Bilateral hand pain, same symptoms. She says symptoms did not change much despite CTS surgery 6 years ago. Numbness on fingers various and pain. Worst on 5th and 3rd digits. Also on base of thumbs. She says she did have EMG done at [facility]. But this is not available for my review. She says she the EMG again after surgery. History of fibromyalgia, on lyrica and cymbalta, seen by Rheumatology. She says her main issue is on base of her thumbs. Been given prednisone, tramadol, PT, without relief. No injection. Has been wearing CTS brace. [facility] Medical History (Updated 03/21/23 @ 09:18 by Freda Quintana MD) De Quervain's tenosynovitis, bilateral Carpal tunnel syndrome on both sides Gastroparesis Urinary incontinence Hypertension GERD (gastroesophageal reflux disease) Panic attacks Anxiety Bipolar 1 disorder Sleep apnea Fibromyalgia Depression Surgical History H/O colonoscopy Hx of tubal ligation History of esophagogastroduodenoscopy (EGD) Hx of cholecystectomy Hx of section History of carpal tunnel surgery Family History Mother HTN (hypertension) Diabetes Father HTN (hypertension) Paternal Aunt Breast cancer Social History Household Members: Children Alcohol intake: never Patient Tobacco Use Status: Never used Tobacco Female Reproductive History Menstrual Age of Menarche: 15 Review of Systems Const All systems reviewed & are unremarkable except as noted in HPI and below Physical Exam Vital Signs: BMI result Body Mass Index 36.6 Constitutional: Patient appears to be in no acute distress, well nourished and well developed. MSK: Tender on 1st to 3rd MCP joints, 1st CMC joints, along the base of the thumb bilateral. No joint effusion noted. No deformity noted. No intrinsic hand weakness noted. No atrophy noted. Melvina test could not do due to pain. Carpal compression test positive on wrist? Tinel sign negative. Strength is 5/5 in all muscle groups tested. No increased tone noted. Neurological: Neurologic examination of the upper and lower extremities was nonfocal with intact sensation, muscle stretch reflexes and without focal motor deficits . Newman?s negative bilaterally. Gait is non-antalgic without loss of balance. Results Reviewed Results Reviewed: I independently reviewed the results of the following: Left hand x-ray done in December showed preserved joint spaces. I reviewed records from the following: Rheumatology Assessment & Plan Assessment & Plan (1) Bilateral hand pain: Code(s): M79.641 - Pain in right hand; M79.642 - Pain in left hand (2) De Quervain's tenosynovitis, bilateral: Code(s): M65.4 - Radial styloid tenosynovitis [de Quervain] (3) Carpal tunnel syndrome on both sides: Code(s): G56.03 - Carpal tunnel syndrome, bilateral upper limbs Plan Chronic hand pain particularly on MCP and CMC joints. History of carpal tunnel syndrome but still continues with symptoms of it. Also complaining of numbness on 5th digit. Possible de Quervain tenosynovitis bilateral. We will repeat x-rays today. She is interested in doing injection which we will do after x-rays, in 1 or 2 weeks. She is interested in repeating EMG. We will schedule. Most importantly, we will put her on a thumb spica splint. Assessment and plan discussed with patient, and patient was agreeable. All questions were answered thoroughly. Freda Quintana MD, PATRICIA Board Certified, [place] [employer] and Rehabilitation (ABPMR) Board Certified, [place] [employer] Electrodiagnostic [employer] (ABEM) Orders: Orders XR hand wrist LT Today G56.03 - Carpal tunnel syndrome, bilateral upper limbs, M19.049 - Primary osteoarthritis, unspecified hand, M65.4 - Radial styloid tenosynovitis [de Quervain], N76.6 - Ulceration of vulva XR hand wrist RT Today G56.03 - Carpal tunnel syndrome, bilateral upper limbs, M19.049 - Primary osteoarthritis, unspecified hand, M65.4 - Radial styloid tenosynovitis [de Quervain], N76.6 - Ulceration of vulva NE electromyogram (EMG) Today G56.03 - Carpal tunnel syndrome, bilateral upper limbs NE nerve conduction velocity Today G56.03 - Carpal tunnel syndrome, bilateral upper limbs Coding Level of Care Code New Pt Level 4 (34574) Diagnoses Bilateral hand pain M79.641; M79.642 De Quervain's tenosynovitis, bilateral M65.4 Carpal tunnel syndrome on both sides G56.03
[2023-03-21 08:38] VITALS: BMI 36.6
== END 2023-03-21 09:32 | disposition home or self-care (01) ==
PROVIDERS: PCP Pediatrics; Visit Provider Physical Medicine & Rehabilitation
DX: M79.641 Pain in right hand (principal); M79.642 Pain in left hand; M65.4 Radial styloid tenosynovitis [de Quervain]; G56.03 Carpal tunnel syndrome, bilateral upper limbs
CPT/HCPCS: 99204

== ENCOUNTER 2023-03-21 08:28 | Outpatient (REF) | payer MEDICAID, SELFPAY ==
--- NOTE | ~2023-03-21 | XR_ITS ---
EXAMINATION: XR WRIST, LEFT XR HAND, LEFT CLINICAL INFORMATION: Pain. COMPARISON: 01/07/2023 TECHNIQUE: PA, oblique and lateral views of the left wrist and hand. Moderate degenerative changes in the first carpometacarpal joint with joint space narrowing and hypertrophic change. Mild degenerative changes in the first and fifth metacarpophalangeal joints with joint space narrowing and hypertrophic change. No displaced fracture. XR/XR hand wrist LT IMPRESSION: Mild to moderate degenerative changes as detailed above. No displaced fracture. Recommend follow-up imaging in 10-14 days if fracture is suspected.
--- NOTE | ~2023-03-21 | XR_ITS ---
EXAMINATION: XR WRIST, LEFT XR HAND, LEFT CLINICAL INFORMATION: Pain. COMPARISON: 01/07/2023 TECHNIQUE: PA, oblique and lateral views of the left wrist and hand. Moderate degenerative changes in the first carpometacarpal joint with joint space narrowing and hypertrophic change. Mild degenerative changes in the first and fifth metacarpophalangeal joints with joint space narrowing and hypertrophic change. No displaced fracture. XR/XR hand wrist RT IMPRESSION: Mild to moderate degenerative changes as detailed above. No displaced fracture. Recommend follow-up imaging in 10-14 days if fracture is suspected.
== END 2023-03-21 08:29 | disposition home or self-care (01) ==
LOC: HO.HOSX 08:28
PROVIDERS: PCP Pediatrics; Visit Provider Physical Medicine & Rehabilitation
DX: M79.641 Pain in right hand (principal); M79.642 Pain in left hand; M65.4 Radial styloid tenosynovitis [de Quervain]; G56.03 Carpal tunnel syndrome, bilateral upper limbs; N76.6 Ulceration of vulva
CPT/HCPCS: 73110; 73130; 99202

== ENCOUNTER 2023-04-02 08:39 | Outpatient (AMB) | payer MEDICAID, SELFPAY ==
--- NOTE | 2023-04-02 08:42 | MHC.OFFVIS ---
Intake Vital Signs 04/02/23 08:43 Height 5 ft 6 in Weight 227 lb BMI 36.6 Intake Visit Reasons: OV-B/L hand injection Intake Note: Millicent 47 yr old female presents today for her follow up visit for bilateral hand injection for CTS. Allergies acetaminophen [Percocet] Allergy (Severe, Verified 04/02/23 08:47) itch oxycodone [Percocet] Allergy (Severe, Verified 04/02/23 08:47) itch Sulfa (Sulfonamide Antibiotics) [SULFA(SULFONAMIDE ANTIBIOTICS)] Allergy (Mild, Verified 04/02/23 08:47) RASH SEAFOOD Allergy (Severe, Uncoded 04/02/23 08:47) SWELLING HPI HPI Comments History of Present Illness Details She is here today for Carpal Tunnel Syndrome injections. But her symptoms are different. More pain on the base of both thumbs. EMG has not been done yet. [facility] Medical History (Updated 04/02/23 @ 12:46 by Freda Quintana MD) De Quervain's tenosynovitis, bilateral Carpal tunnel syndrome on both sides Gastroparesis Urinary incontinence Hypertension GERD (gastroesophageal reflux disease) Panic attacks Anxiety Bipolar 1 disorder Sleep apnea Fibromyalgia Depression Surgical History H/O colonoscopy Hx of tubal ligation History of esophagogastroduodenoscopy (EGD) Hx of cholecystectomy Hx of section History of carpal tunnel surgery Family History Mother HTN (hypertension) Diabetes Father HTN (hypertension) Paternal Aunt Breast cancer Social History (Reviewed 04/02/23 @ 08:48 by Ngozi Nogueira [facility]) Household Members: Children Alcohol intake: never Patient Tobacco Use Status: Never used Tobacco Female Reproductive History Menstrual Age of Menarche: 15 Physical Exam Vital Signs: BMI result Body Mass Index 36.6 Positive right Melvina test. Office Procedures Tendon Injection Tendon Injection Details: Consent obtained. Patient placed right hand vertically with thumb held in slight flexion. Gap between tendons abductor pollicis longus and extensor pollicis brevis was identified. Area cleaned in sterile manner. Gauge 25 0.5 inch needle inserted perpendicular into the gap approximately between the tendons. Injected solution containing 10 mg Kenalog and 0.75 mL 2% lidocaine. Patient tolerated procedure well. No complications noted. [id number] Tendon Sheath Injection All charges added?: Procedure code (CPT) selection complete Results Reviewed Results Reviewed: 04/02/23 08:50 Lidocaine HCl 1 % [Xylocaine 1 %] 2 ml .ROUTE .STK-MED ONE Triamcinolone Acetonide [Kenalog-40] 40 mg .ROUTE .STK-MED ONE Ordering Physician: Freda Watson Date of Service: 03/21/23 Procedure(s): XR hand wrist RT Accession Number(s): [id number] cc: Frannie Cedillo MD; Freda Watson~ EXAMINATION: XR WRIST, LEFT XR HAND, LEFT CLINICAL INFORMATION: Pain. COMPARISON: 01/07/2023 TECHNIQUE: PA, oblique and lateral views of the left wrist and hand. Moderate degenerative changes in the first carpometacarpal joint with joint space narrowing and hypertrophic change. Mild degenerative changes in the first and fifth metacarpophalangeal joints with joint space narrowing and hypertrophic change. No displaced fracture. XR/XR hand wrist RT IMPRESSION: Mild to moderate degenerative changes as detailed above. No displaced fracture. Recommend follow-up imaging in 10-14 days if fracture is suspected. Assessment & Plan Assessment & Plan (1) De Quervain's tenosynovitis, right: Code(s): M65.4 - Radial styloid tenosynovitis [de Quervain] Plan De Quervain injection done. Patient tolerated procedure well. Assessment and plan discussed with patient, and patient was agreeable. All questions were answered thoroughly. Freda Quintana MD, PATRICIA Board Certified, [place] Board of [employer] and Rehabilitation (ABPMR) Board Certified, [place] Board [employer] Electrodiagnostic [employer] (ABEM) Orders: Orders AMB Injection-Tendon Today M65.4 - Radial styloid tenosynovitis [de Quervain] Coding Level of Care Code Procedure Only Diagnoses De Quervain's tenosynovitis, right M65.4 CPT Codes Tendon Injection - Tendon Injection 1: [id number] Tendon Sheath Injection ([id number])
[2023-04-02 08:43] VITALS: BMI 36.6
== END 2023-04-02 09:18 | disposition home or self-care (01) ==
PROVIDERS: PCP Pediatrics; Visit Provider Physical Medicine & Rehabilitation
DX: M65.4 Radial styloid tenosynovitis [de Quervain] (principal)
CPT/HCPCS: 20550

== ENCOUNTER → 2023-04-02 08:39 | Outpatient (BNVA) | payer MEDICAID, SELFPAY | PROVIDERS: PCP Pediatrics; Visit Provider Physical Medicine & Rehabilitation | DX: M65.4 Radial styloid tenosynovitis [de Quervain] (principal) | CPT/HCPCS: 20550; J3301 ==

== ENCOUNTER 2023-04-24 12:02 | Outpatient (AMB) | payer MEDICAID, SELFPAY ==
--- NOTE | 2023-04-24 12:11 | MHC.OFFVIS ---
Intake Vital Signs 04/24/23 12:13 Height 5 ft 6 in Weight 227 lb BMI 36.6 Intake Visit Reasons: OV-B/L hand injection Intake Note: Millicent 47 yr old female presents today for her left hand IP and MCP joint pain. States its painful when bending thumb. Patiemt would like to discuss possible injection for her left thumb/hand. Also states she is very happy with her pain relief after her right dequervain injection. Allergies acetaminophen [Percocet] Allergy (Severe, Verified 04/24/23 12:13) itch oxycodone [Percocet] Allergy (Severe, Verified 04/24/23 12:13) itch Sulfa (Sulfonamide Antibiotics) [SULFA(SULFONAMIDE ANTIBIOTICS)] Allergy (Mild, Verified 04/24/23 12:13) RASH SEAFOOD Allergy (Severe, Uncoded 04/24/23 12:13) SWELLING HPI HPI Comments History of Present Illness Details Last visit with it the right de Quervain injection with very good relief. Denies any more right wrist pain. Today she is complaining of pain on left 1st IP and MCP joint. Denies any tenderness on CMC or wrist. No swelling or redness. [facility] Medical History (Updated 04/24/23 @ 12:28 by Freda Quintana MD) Degenerative joint disease of left hand Carpal tunnel syndrome on both sides Gastroparesis Urinary incontinence Hypertension GERD (gastroesophageal reflux disease) Panic attacks Anxiety Bipolar 1 disorder Sleep apnea Fibromyalgia Depression Surgical History H/O colonoscopy Hx of tubal ligation History of esophagogastroduodenoscopy (EGD) Hx of cholecystectomy Hx of section History of carpal tunnel surgery Family History Mother HTN (hypertension) Diabetes Father HTN (hypertension) Paternal Aunt Breast cancer Social History Household Members: Children Alcohol intake: never Patient Tobacco Use Status: Never used Tobacco Female Reproductive History Menstrual Age of Menarche: 15 Physical Exam Constitutional: Patient appears to be in no acute distress, well nourished and well developed. MSK: Tender on left 1st IP and MCP joint. No tenderness in CMC joint. Negative Melvina test on left. Negative Melvina test on right. No joint effusion noted. No deformity noted. No intrinsic hand weakness noted. No atrophy noted. Strength is 5/5 in all muscle groups tested. No increased tone noted. Neurological: Neurologic examination of the upper and lower extremities was nonfocal with intact sensation, muscle stretch reflexes and without focal motor deficits . Newman?s negative bilaterally. Gait is non-antalgic without loss of balance. Office Procedures Joint Injection/Drain Joint Injection/Drain Details: Risks and benefits discussed. Consent obtained. Patient rested left hand in mid position on table with thumb up and mild traction applied down on thumb. Identified gap between joint space at 1st MCP. Area prepped in sterile manner. 27 gauge 1/2 inch needle inserted perpendicular into gap, injecting solution with 10mg Kenalog and 0.75 ml 2% Lidocaine. Patient tolerated procedure well without complications. Post injection instructions given. Primary Site: left thumb Injected: 10 mg of and Kenalog Procedure: The patient tolerated the procedure well Coding - Small Joint Procedure code (CPT) selection complete Results Reviewed Results Reviewed: Reviewed hand x-rays images with patient, degenerative changes seen on right 1st IP and MCP joint Assessment & Plan Assessment & Plan (1) Carpal tunnel syndrome on both sides: Code(s): G56.03 - Carpal tunnel syndrome, bilateral upper limbs (2) Degenerative joint disease of left hand: Code(s): M19.042 - Primary osteoarthritis, left hand Qualifiers: Osteoarthritis type: primary Qualified Code(s): M19.042 - Primary osteoarthritis, left hand Plan Right de Quervain tenosynovitis resolved from injection. Pain on left 1st IP and MCP joints. No tenderness in CMC joint. History of bilateral Carpal Tunnel Syndrome. Did offer referral to Dr. Jefferson to have the injection done under fluoroscopy. But patient is having severe pain today and would rather have it done today by me. Injection to left hand. Tolerated procedure well. Post injection instructions given. Assessment and plan discussed with patient, and patient was agreeable. All questions were answered thoroughly. Follow-up 3 months. Freda Quintana MD, PATRICIA Board Certified, [place] [employer] and Rehabilitation (ABPMR) Board Certified, [place] [employer] Electro[employer]ostic [employer] (ABEM) Orders: Orders AMB Joint Injection/Aspiration Today M19.042 - Primary osteoarthritis, left hand Coding Level of Care Code Est Pt Level 3 (52519) Diagnoses Carpal tunnel syndrome on both sides G56.03 Primary osteoarthritis of left hand M19.042 Osteoarthritis type: primary CPT Codes Coding - 33163 - Small joint: 91619 - Small Joint ([id number])
[2023-04-24 12:13] VITALS: BMI 36.6
== END 2023-04-24 12:31 | disposition home or self-care (01) ==
PROVIDERS: PCP Pediatrics; Visit Provider Physical Medicine & Rehabilitation
DX: M18.12 Unilateral primary osteoarthritis of first carpometacarpal joint, left hand (principal); G56.03 Carpal tunnel syndrome, bilateral upper limbs
CPT/HCPCS: 20600; 99213

== ENCOUNTER → 2023-04-24 12:02 | Outpatient (BNVA) | payer MEDICAID, SELFPAY | PROVIDERS: PCP Pediatrics; Visit Provider Physical Medicine & Rehabilitation | DX: M19.042 Primary osteoarthritis, left hand (principal); G56.03 Carpal tunnel syndrome, bilateral upper limbs | CPT/HCPCS: 20600; 99212; J3301 ==

== ENCOUNTER 2023-04-25 08:55 | Outpatient (REF) | payer MEDICAID, SELFPAY ==
--- NOTE | 2023-04-25 08:57 | EMG_ITS ---
Chief complaint: Hand pain History of bilateral carpal tunnel 5-6 years ago Reason for referral: Evaluate for Carpal Tunnel Syndrome Procedure done: Bilateral upper extremities NCS/EMG Precautions and/or limitations: None The limb temperature was monitored continuously and remained between 32-36 degrees C during the performance of the NCS. Nerve Conduction Studies Anti Sensory Summary Table ?Stim Site NR Onset (ms) Norm Onset (ms) Peak (ms) Norm Peak (ms) O-P Amp (?V) Norm O-P Amp Site1 Site2 Delta-0 (ms) Dist (cm) Ramy (m/s) Norm Ramy (m/s) Left Median Anti Sensory (2nd Digit) Wrist ? 2.6 3.2 <3.6 37.9 >10 Wrist 2nd Digit 2.6 14.0 54 Right Median Anti Sensory (2nd Digit) Wrist ? 2.6 3.1 <3.6 29.3 >10 Wrist 2nd Digit 2.6 14.0 54 Right Radial Anti Sensory (Thumb) Forearm ? 1.2 1.7 <3.1 46.8 Forearm Thumb 1.2 0.0 Left Ulnar Anti Sensory (5th Digit) Wrist ? 2.2 2.8 <3.7 26.6 >15.0 Wrist 5th Digit 2.2 14.0 64 Right Ulnar Anti Sensory (5th Digit) Wrist ? 2.1 2.7 <3.7 16.3 >15.0 Wrist 5th Digit 2.1 14.0 67 Motor Summary Table ?Stim Site NR Onset (ms) Norm Onset (ms) O-P Amp (mV) Norm O-P Amp iAmp (mV) Amp (1st) (%) Site1 Site2 Delta-0 (ms) Dist (cm) Ramy (m/s) Norm Ramy (m/s) Left Median Motor (Abd Poll Brev) Wrist ? 3.0 <3.9 5.0 >4.5 7.0 100.0 Elbow Wrist 3.1 22.0 71 >45 Elbow ? 6.1 4.5 6.4 90.0 Right Median Motor (Abd Poll Brev) Wrist ? 3.7 <3.9 8.4 >4.5 10.0 100.0 Elbow Wrist 3.5 21.0 60 >45 Elbow ? 7.2 8.5 10.1 101.2 Left Ulnar Motor (Abd Dig Minimi) Wrist ? 2.7 <3.0 12.3 >5 14.2 100.0 B Elbow Wrist 3.2 19.0 59 >45 B Elbow ? 5.9 12.8 15.1 104.1 A Elbow B Elbow 1.8 10.0 56 >45 A Elbow ? 7.7 12.1 14.5 98.4 Right Ulnar Motor (Abd Dig Minimi) Wrist ? 2.5 <3.0 11.7 >5 14.8 100.0 B Elbow Wrist 3.1 19.5 63 >45 B Elbow ? 5.6 11.0 14.4 94.0 A Elbow B Elbow 1.4 10.0 71 >45 A Elbow ? 7.0 10.8 14.5 92.3 EMG ?Side Muscle Nerve Root Ins Act Fibs Psw Amp Dur Poly Recrt Int Pat Comment Right 1stDorInt Ulnar C8-T1 Nml Nml Nml Nml Nml 0 Nml Complete Right FlexCarRad Median C6-7 Nml Nml Nml Nml Nml 0 Nml Complete Right Biceps Musculocut C5-6 Nml Nml Nml Nml Nml 0 Nml Complete Right Triceps Radial C6-7-8 Nml Nml Nml Nml Nml 0 Nml Complete Right Deltoid Axillary C5-6 Nml Nml Nml Nml Nml 0 Nml Complete Left 1stDorInt Ulnar C8-T1 Nml Nml Nml Nml Nml 0 Nml Complete Left FlexCarRad Median C6-7 Nml Nml Nml Nml Nml 0 Nml Complete Left Biceps Musculocut C5-6 Nml Nml Nml Nml Nml 0 Nml Complete Left Triceps Radial C6-7-8 Nml Nml Nml Nml Nml 0 Nml Complete Left Deltoid Axillary C5-6 Nml Nml Nml Nml Nml 0 Nml Complete FINDINGS: All motor and sensory nerves tested showed normal latencies, amplitudes and conduction velocities. Concentric needle EMG was performed in selected muscles of the bilateral upper extremities. Study did not reveal signs of electric abnormalities as shown in the table below. IMPRESSION: 1. This is a normal study. 2. There is no electrodiagnostic evidence for median neuropathy, ulnar neuropathy, brachial plexopathy, or cervical radiculopathy. Thank you for your kind referral. Freda Quintana MD, PATRICIA Board Certified, [place] [employer] and [employer] (ABPMR) Board Certified, [place] Board [employer] Electrodiagnostic [employer] (ABEM) CODIN 67132 x 244 MTDD
== END 2023-04-25 08:56 | disposition home or self-care (01) ==
LOC: HO.NEURO 08:55
PROVIDERS: PCP Pediatrics; Visit Provider Physical Medicine & Rehabilitation
DX: G56.03 Carpal tunnel syndrome, bilateral upper limbs (principal)
CPT/HCPCS: 95886; 95911

== ENCOUNTER → 2023-04-25 08:57 | Outpatient (BNV) | payer MEDICAID, SELFPAY | PROVIDERS: PCP Pediatrics; Visit Provider Physical Medicine & Rehabilitation | DX: M79.641 Pain in right hand (principal); M79.642 Pain in left hand | CPT/HCPCS: 95886; 95911 ==

== ENCOUNTER 2023-05-05 08:37 | Outpatient (REF) | payer MEDICAID, SELFPAY ==
[2023-05-05 14:11] LABS: MANUAL DIFF FLAG NO
[2023-05-05 14:17] LABS: Basophils Percent Auto 0.4 % (0-2); Eosinophils Percent Auto 0.5 % (0-4); Hematocrit 39.7 % (37.0-47.0); Hemoglobin 12.9 g/dl (12.0-16.0); Imm Gran Abs Auto 0.02 X10*3/uL (0.00-0.03); Imm Gran Pct Auto 0.2 % (0.0-0.4); Lymphocytes Absolute Auto 2.2 X10*3/uL (1.2-4.9); Lymphocytes Percent Auto 26.9 % (20-40); Mean Corpuscular HGB Conc 32.5 g/dl (31.0-35.0); Mean Corpuscular Hemoglobin 30.4 pg (27.0-33.0); Mean Corpuscular Volume 93.4 fL (80.0-98.0); Mean Platelet Volume 9.4 fL (9.4-12.3); Monocytes Absolute Auto 0.6 X10*3/uL (0.1-1.2); Monocytes Percent Auto 6.8 % (2-11); Neutrophils Absolute Auto 5.4 x10*3/uL (2.0-8.3); Neutrophils Percent Auto 65.2 % (45-73); Platelet Count 267 X10*3/uL (160-400); Red Blood Count 4.25 X10*6/uL (4.20-5.50); Red Cell Distribution Width 12.3 % (11.0-16.0); White Blood Count 8.3 X10*3/uL (4.8-10.8)
[2023-05-05 14:58] LABS: Thyroid Stimulating Hormone 2.39 uIU/mL (0.32-4.0)
== END 2023-05-05 08:38 | disposition home or self-care (01) ==
LOC: HO.CHCLDS 08:37
PROVIDERS: Visit Provider Student in an Organized Health Care Education/Training Program
DX: R00.2 Palpitations (principal)
CPT/HCPCS: 36415; 84443; 85025

== ENCOUNTER → 2023-05-14 10:11 | Outpatient (BNVA) | payer MEDICAID, SELFPAY | PROVIDERS: PCP Pediatrics; Visit Provider Physician Assistant Surgical ==

== ENCOUNTER → 2023-05-15 09:40 | Outpatient (REF) | payer MEDICAID, SELFPAY ==
--- NOTE | 2023-05-15 09:48 | HM_ITS ---
* Total monitoring time 1 day. * Underlying rhythm is sinus. Average ventricular rate 86/Min. Range 69 to 123/Min. * Very rare supraventricular and ventricular ectopy. * No significant pauses or AV blocks. * Palpitations in patient diary correlates with supraventricular and ventricular ectopy. MTDD
== END ==
LOC: HO.CARD 09:40
PROVIDERS: PCP Pediatrics; Visit Provider Student in an Organized Health Care Education/Training Program
DX: R00.2 Palpitations (principal)
CPT/HCPCS: 93225

== ENCOUNTER → 2023-05-15 09:48 | Outpatient (BNV) | payer MEDICAID, SELFPAY | PROVIDERS: PCP Pediatrics; Visit Provider Internal Medicine | DX: I49.3 Ventricular premature depolarization (principal) | CPT/HCPCS: 93227 ==

== ENCOUNTER 2023-05-21 14:36 | Outpatient (REF) | payer MEDICAID, SELFPAY ==
[2023-05-21 17:54] LABS: Alanine Aminotransferase 11 U/L (0-31); Alkaline Phosphatase 92 U/L (39-117); Anion Gap 11 (12-20); Aspartate Amino Transferase 13 U/L (5-31); Bilirubin Total 0.2 mg/dL (0.0-1.0); Blood Urea Nitrogen 7 mg/dL (9-16); Calcium 9.4 mg/dL (8.4-10.2); Carbon Dioxide 26 mmol/L (22-29); Chloride 106 mmol/L (96-108); Estimated Glomerular Filt Rate > 60; Glucose Random 100 mg/dL (60-115); Lipase 37 U/L (8-78); Potassium 3.6 mmol/L (3.3-5.1); Sodium 139 mmol/L (135-145); Total Protein 7.4 g/dL (6.5-8.0)
== END 2023-05-21 14:37 | disposition home or self-care (01) ==
LOC: HO.CHCLDS 14:36
PROVIDERS: Visit Provider Family Medicine
DX: K21.9 Gastro-esophageal reflux disease without esophagitis (principal)
CPT/HCPCS: 36415; 80053; 83690

== ENCOUNTER 2023-06-02 08:38 | Outpatient (AMB) | payer MEDICAID, SELFPAY ==
--- NOTE | 2023-06-02 12:00 | MHC.OFFVISWM ---
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* Allergies acetaminophen [Percocet] Allergy (Severe, Verified 06/02/23 12:00) itch oxycodone [Percocet] Allergy (Severe, Verified 06/02/23 12:00) itch Sulfa (Sulfonamide Antibiotics) [SULFA(SULFONAMIDE ANTIBIOTICS)] Allergy (Mild, Verified 06/02/23 12:00) RASH SEAFOOD Allergy (Severe, Uncoded 06/02/23 12:00) SWELLING Medication List - Last Reconciled 06/02/23 by Christiano Stewart MD cholecalciferol (vitamin D3) 50 mcg PO DAILY clonazepam 1 mg PO TID PRN clonidine HCl 1 tab PO BID duloxetine 60 mg PO BID ferrous sulfate (FeroSul) 325 mg PO ketotifen fumarate 0.025%(0.035%) 1 drp ophthalmic (eye) BID labetalol 1 tab PO BID lisinopril 20 mg PO QAM lurasidone (Latuda) 120 mg PO DAILY pantoprazole 40 mg PO BID pregabalin 100 mg PO BID prucalopride (Motegrity) 2 mg PO DAILY quetiapine 50 - 100 mg PO BEDTIME sucralfate 1 g PO BEDTIME zolpidem 10 mg PO BEDTIME 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 *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 FANCIER* HPI Details Start time: 11.45am, End time: 12.45pm ?I spent 50 minutes speaking with the patient on the phone plus an additional 10 minutes reviewing and updating records for a total of 60 minutes HPI Comments History of Present Illness Details Previous weight loss methods: self diet, weight loss pills Wakes up: 7am ,sleeps: 11pm Breakfast: skips Lunch: 1pm (rice, meat, sandwich) Dinner: 5pm (same as lunch) Snacks: 10am (cookies), 7pm (cereal, cookies) Exercise: none, has a treadmill Fluids: coffee 3 cups per day (cream), tea: none, soda: coke daily, juice: 3-4/wk, ETOH: none PFSH Medical History (Updated 06/02/23 @ 12:24 by Christiano Stewart MD) Insomnia Degenerative joint disease of left hand Carpal tunnel syndrome on both sides Gastroparesis Urinary incontinence Hypertension GERD (gastroesophageal reflux disease) Panic attacks Anxiety Bipolar 1 disorder Sleep apnea Fibromyalgia Depression Surgical History H/O colonoscopy Hx of tubal ligation History of esophagogastroduodenoscopy (EGD) Hx of cholecystectomy Hx of section History of carpal tunnel surgery Family History Mother HTN (hypertension) Diabetes Father HTN (hypertension) Paternal Aunt Breast cancer Social History Household Members: Children Alcohol intake: never Patient Tobacco Use Status: Never used Tobacco Female Reproductive History Menstrual Age of Menarche: 15 Assessment & Plan Assessment & Plan (1) Obesity: Code(s): E66.9 - Obesity, unspecified Qualifiers: Obesity type: due to excess calories Obesity classification: adult class 2 (BMI 35 - 39.9) Serious obesity comorbidity presence: with serious comorbidity Body mass index: BMI 35.0-35.9 Qualified Code(s): E66.01 - Morbid (severe) obesity due to excess calories; Z68.35 - Body mass index [BMI] 35.0-35.9, adult Plan: 1.? Plan for lap sleeve gastrectomy. If diaphragmatic or ventral hernias are present at time of surgery, these will be repaired laparoscopically as well. Risks and complications were discussed in detail including possible conversion to an open procedure, anastomotic leak, bleeding requiring transfusion, small bowel obstruction, , DVT and pulmonary embolism, cardiac, or pulmonary complications, as termination clerk complications such as anastomotic ulcer, insufficient weight loss and vitamin deficiencies. I emphasized the importance of close follow-up, adherence to instructions and good communication. 2. Nutritional counseling. Start with 2 CELEBRATE REBUILD protein (buy at hospital[facility] gift [facility]) shakes (ONE scoop EACH in 8oz low fat unsweetened almond milk each) at 8am-10am and 11am-1pm, 1 protein bar (CELEBRATE protein bars, buy at [facility] gift [facility]) at 2pm-4pm, dinner at 5pm (8 forks of protein and 8 forks of salad/vegetables) AND one more Celebrate protein bar after dinner at 7pm-9pm. So you do 2 protein shakes, 2 protein bars and one meal per day. Meal to include lean meat (beef, fish, pork, turkey, chicken), or bermudian yogurt, or egg whites, or beans with a salad with olive oil and fruits (berries, pears, apples, kiwi). Avoid salt, breads, potatoes, rice, pasta, desserts. 3. Each shake would be drunk slowly, like coffee in a period of 2 hours. Please add your coffee into your shakes to avoid the creamer. Use decaff coffee preferably. 4. Cut each bar in 4 pieces and eat each piece in 30min ?to make each bar last 2 hours. 5. I emphasized the importance of measuring accurately the food portion and measure it when serving the food in plate 6. The meal portions include 10 full-size forks of meat and 10 full-size forks of salad. You always eat the meat portion but you can replace up to 5 forks for salad/vegetables with rice, potatoes or pasta, or a fruit ?if you like. The less you do it the better weight loss will be. 7. One full-size fork is what it can be scooped on the fork without falling aside and not what can be bit with the fork. Use regular forks like those you find in a typical restaurant. 8.? Please send me weight measurements as soon as possible and then once a week. Always include your diet and exercise plan. 9. Start treadmill with an incline of 2.0 and speed of 3.0. Increase incline by 1 every 3 min to a max incline of 8.0, stay 3min at 8.0 and then return to 2.0 and repeat same steps until calorie goal is met. Goal is to burn 2000 calories per week on exercise, which means either 300 calories daily, or 400 calories 5 days per week, or 500 calories 4 days per week, or 650 calories 3 days per week. Start also weight exercises with 20-30lbs for chest/shoulders/abdomen and 40-50lbs for thighs doing 2 sets of 15 repetitions each. 10.?It is important of avoiding and for at least 18 months postoperatively and has been discussed at the infosession. 11. Goal is to lose at least 1.5-2lbs per week 12. Goal to lose 10% of your weight before surgery, which is about 22lbs. Ultimate weight goal: 200lbs before surgery 13. Please follow the diet plan exactly without any change. If you don't like something about the plan or you feel hungry you need to communicate with me so I can help you revise the plan. You should not change the plan yourself. Orders: Orders Insulin Today E66.9 - Obesity, unspecified, G47.30 - Sleep apnea, unspecified, I10 - Essential (primary) hypertension, K21.9 - Gastro-esophageal reflux disease without esophagitis, Z68.35 - Body mass index [BMI] 35.0-35.9, adult Vitamin B12 and Folate Today E66.9 - Obesity, unspecified, G47.30 - Sleep apnea, unspecified, I10 - Essential (primary) hypertension, K21.9 - Gastro-esophageal reflux disease without esophagitis, Z68.35 - Body mass index [BMI] 35.0-35.9, adult C Reactive Protein Today E66.9 - Obesity, unspecified, G47.30 - Sleep apnea, unspecified, I10 - Essential (primary) hypertension, K21.9 - Gastro-esophageal reflux disease without esophagitis, Z68.35 - Body mass index [BMI] 35.0-35.9, adult Vitamin B1 Today E66.9 - Obesity, unspecified, G47.30 - Sleep apnea, unspecified, I10 - Essential (primary) hypertension, K21.9 - Gastro-esophageal reflux disease without esophagitis, Z68.35 - Body mass index [BMI] 35.0-35.9, adult Ferritin Today E66.9 - Obesity, unspecified, G47.30 - Sleep apnea, unspecified, I10 - Essential (primary) hypertension, K21.9 - Gastro-esophageal reflux disease without esophagitis, Z68.35 - Body mass index [BMI] 35.0-35.9, adult Vitamin D 25-OH Total Today E66.9 - Obesity, unspecified, G47.30 - Sleep apnea, unspecified, I10 - Essential (primary) hypertension, K21.9 - Gastro-esophageal reflux disease without esophagitis, Z68.35 - Body mass index [BMI] 35.0-35.9, adult US abdomen comp w elastography Today E66.9 - Obesity, unspecified, G47.30 - Sleep apnea, unspecified, I10 - Essential (primary) hypertension, K21.9 - Gastro-esophageal reflux disease without esophagitis, Z68.35 - Body mass index [BMI] 35.0-35.9, adult XR chest 2V Today E66.9 - Obesity, unspecified, G47.30 - Sleep apnea, unspecified, I10 - Essential (primary) hypertension, K21.9 - Gastro-esophageal reflux disease without esophagitis, Z68.35 - Body mass index [BMI] 35.0-35.9, adult Hemoglobin A1c Today E66.9 - Obesity, unspecified, G47.30 - Sleep apnea, unspecified, I10 - Essential (primary) hypertension, K21.9 - Gastro-esophageal reflux disease without esophagitis, Z68.35 - Body mass index [BMI] 35.0-35.9, adult H Pylori Breath Test Today E66.9 - Obesity, unspecified, G47.30 - Sleep apnea, unspecified, I10 - Essential (primary) hypertension, K21.9 - Gastro-esophageal reflux disease without esophagitis, Z68.35 - Body mass index [BMI] 35.0-35.9, adult Complete Blood Count Auto Diff Today E66.9 - Obesity, unspecified, G47.30 - Sleep apnea, unspecified, I10 - Essential (primary) hypertension, K21.9 - Gastro-esophageal reflux disease without esophagitis, Z68.35 - Body mass index [BMI] 35.0-35.9, adult Lipid Panel Today E66.9 - Obesity, unspecified, G47.30 - Sleep apnea, unspecified, I10 - Essential (primary) hypertension, K21.9 - Gastro-esophageal reflux disease without esophagitis, Z68.35 - Body mass index [BMI] 35.0-35.9, adult IRON PROFILE Today E66.9 - Obesity, unspecified, G47.30 - Sleep apnea, unspecified, I10 - Essential (primary) hypertension, K21.9 - Gastro-esophageal reflux disease without esophagitis, Z68.35 - Body mass index [BMI] 35.0-35.9, adult Comprehensive Met. Panel Today E66.9 - Obesity, unspecified, G47.30 - Sleep apnea, unspecified, I10 - Essential (primary) hypertension, K21.9 - Gastro-esophageal reflux disease without esophagitis, Z68.35 - Body mass index [BMI] 35.0-35.9, adult Zinc Today E66.9 - Obesity, unspecified, G47.30 - Sleep apnea, unspecified, I10 - Essential (primary) hypertension, K21.9 - Gastro-esophageal reflux disease without esophagitis, Z68.35 - Body mass index [BMI] 35.0-35.9, adult Vitamin A Today E66.9 - Obesity, unspecified, G47.30 - Sleep apnea, unspecified, I10 - Essential (primary) hypertension, K21.9 - Gastro-esophageal reflux disease without esophagitis, Z68.35 - Body mass index [BMI] 35.0-35.9, adult TSH reflex Free T4 Today E66.9 - Obesity, unspecified, G47.30 - Sleep apnea, unspecified, I10 - Essential (primary) hypertension, K21.9 - Gastro-esophageal reflux disease without esophagitis, Z68.35 - Body mass index [BMI] 35.0-35.9, adult ECG 12 lead EKG Today E66.9 - Obesity, unspecified, G47.30 - Sleep apnea, unspecified, I10 - Essential (primary) hypertension, K21.9 - Gastro-esophageal reflux disease without esophagitis, Z68.35 - Body mass index [BMI] 35.0-35.9, adult FL upper GI w air Today E66.9 - Obesity, unspecified, G47.30 - Sleep apnea, unspecified, I10 - Essential (primary) hypertension, K21.9 - Gastro-esophageal reflux disease without esophagitis, Z68.35 - Body mass index [BMI] 35.0-35.9, adult Referrals Behavioral Health Referral E66.9 - Obesity, unspecified, G47.30 - Sleep apnea, unspecified, I10 - Essential (primary) hypertension, K21.9 - Gastro-esophageal reflux disease without esophagitis, Z68.35 - Body mass index [BMI] 35.0-35.9, adult Nutrition/Dietitian Referral E66.9 - Obesity, unspecified, G47.30 - Sleep apnea, unspecified, I10 - Essential (primary) hypertension, K21.9 - Gastro-esophageal reflux disease without esophagitis, Z68.35 - Body mass index [BMI] 35.0-35.9, adult Telehealth Telehealth Location of provider rendering services: practice address Location of patient: address on file Patient Identification confirmed using: Name, : Yes Telehealth method: voice only Patient verbally consented to treatment: Yes Patient verbally consented to billing insurance company: Yes Patient informed of any privacy concerns related to visit: Yes Minutes spent on Phone/Video with Pt.: 60 Coding Level of Care Code Tele [facility] Pt Level 5 (61150) Diagnoses Class 2 severe obesity due to excess calories with serious comorbidity and body mass index (BMI) of 35.0 to 35.9 in adult E66.01; Z68.35 Obesity type: due to excess calories Obesity classification: adult class 2 (BMI 35 - 39.9) Serious obesity comorbidity presence: with serious comorbidity Body mass index: BMI 35.0-35.9 Time Spent (min) 60 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
[2023-06-02 12:22] VITALS: BMI 35.8
== END 2023-06-02 12:46 | disposition home or self-care (01) ==
LOC: HO.HBS 08:38
PROVIDERS: PCP Pediatrics; Visit Provider Surgery
DX: E66.01 Morbid (severe) obesity due to excess calories (principal); Z68.35 Body mass index [BMI] 35.0-35.9, adult
CPT/HCPCS: 99205

== ENCOUNTER → 2023-06-02 08:38 | Outpatient (BNVA) | payer MEDICAID, SELFPAY | PROVIDERS: PCP Pediatrics; Visit Provider Surgery ==

== ENCOUNTER 2023-06-04 06:40 | Outpatient (REF) | payer MEDICAID, SELFPAY ==
[2023-06-04 07:04] LABS: MANUAL DIFF FLAG NO
[2023-06-04 07:40] LABS: Basophils Percent Auto 0.1 % (0-2); Eosinophils Absolute Auto 0.1 X10*3/uL (0.0-0.4); Hematocrit 36.9 % (37.0-47.0); Hemoglobin 12.1 g/dl (12.0-16.0); Imm Gran Abs Auto 0.03 X10*3/uL (0.00-0.03); Imm Gran Pct Auto 0.4 % (0.0-0.4); Lymphocytes Percent Auto 28.4 % (20-40); Mean Corpuscular HGB Conc 32.8 g/dl (31.0-35.0); Mean Corpuscular Hemoglobin 30.4 pg (27.0-33.0); Mean Corpuscular Volume 92.7 fL (80.0-98.0); Mean Platelet Volume 8.8 fL (9.4-12.3); Monocytes Absolute Auto 0.5 X10*3/uL (0.1-1.2); Monocytes Percent Auto 6.8 % (2-11); Neutrophils Absolute Auto 4.5 x10*3/uL (2.0-8.3); Neutrophils Percent Auto 63.3 % (45-73); Platelet Count 236 X10*3/uL (160-400); Red Blood Count 3.98 X10*6/uL (4.20-5.50); Red Cell Distribution Width 12.3 % (11.0-16.0); White Blood Count 7.1 X10*3/uL (4.8-10.8)
[2023-06-04 07:46] LABS: Estimated Average Glucose 103 mg/dL; Hemoglobin A1c % 5.2 % (<6.0)
[2023-06-04 08:47] LABS: Alanine Aminotransferase 10 U/L (0-31); Albumin Level 3.8 g/dL (3.5-5.0); Alkaline Phosphatase 81 U/L (39-117); Anion Gap 12 (12-20); Aspartate Amino Transferase 11 U/L (5-31); Bilirubin Total 0.4 mg/dL (0.0-1.0); Blood Urea Nitrogen 7 mg/dL (9-16); C Reactive Protein 0.83 mg/dL (< or = 0.50); Calcium 9.1 mg/dL (8.4-10.2); Carbon Dioxide 26 mmol/L (22-29); Chloride 107 mmol/L (96-108); Cholesterol 209 mg/dL (<200); Estimated Glomerular Filt Rate > 60; Glucose Random 98 mg/dL (60-115); HDL Cholesterol 52 mg/dL (>40); Iron 79 mcg/dL (30-160); LDL Cholesterol Calculated 131 mg/dL (<100); Percent Iron Saturation 28 % (15-50); Potassium 3.9 mmol/L (3.3-5.1); Sodium 141 mmol/L (135-145); Total Iron Binding Capacity 279 mcg/dL (228-428); Total Protein 6.8 g/dL (6.5-8.0); Triglycerides 130 mg/dL (<150); Unsaturated Iron Binding 200 ug/dL
[2023-06-04 09:05] LABS: Ferritin 69 ng/mL (10-250); Insulin 19 uU/mL (2-29); TSH reflex Free T4 2.95 uIU/mL (0.32-4.0); Vitamin D 25-OH Total 30.4 ng/mL (>30)
[2023-06-04 09:15] LABS: Folate 7.3 ng/mL (> or = 4.0)
[2023-06-04 09:27] LABS: Vitamin B12 293 pg/mL (200-900)
[2023-06-07 02:48] LABS: Zinc 88 mcg/dL (60-130)
[2023-06-09 05:29] LABS: Vitamin A 62 mcg/dL (38-98)
[2023-06-11 11:54] LABS: Vitamin B1 20 nmol/L (8-30)
== END 2023-06-04 06:41 | disposition home or self-care (01) ==
LOC: HO.LAB 06:40
PROVIDERS: Visit Provider Surgery
DX: E66.9 Obesity, unspecified (principal); G47.30 Sleep apnea, unspecified; K21.9 Gastro-esophageal reflux disease without esophagitis; I10 Essential (primary) hypertension; Z68.35 Body mass index [BMI] 35.0-35.9, adult
CPT/HCPCS: 36415; 80053; 80061; 82306; 82607; 82728; 82746; 83036; 83525; 83540; 84425; 84443; 84590; 84630; 85025; 86140

== ENCOUNTER 2023-06-04 10:09 | Outpatient (REF) | payer MEDICAID, SELFPAY ==
--- NOTE | ~2023-06-04 | XR_ITS ---
EXAMINATION: XR CHEST CLINICAL INFORMATION: Obesity COMPARISON: 09/15/2020 TECHNIQUE: 2 views of the chest were obtained. FINDINGS: No significant abnormality is noted involving the heart, lungs, mediastinum, bony thorax or soft tissues. XR/XR chest 2V IMPRESSION: Unremarkable examination, without interval change.
--- NOTE | 2023-06-04 10:13 | ECG_ITS ---
Test Reason : e66.9 Blood Pressure : / mmHG Vent. Rate : 082 BPM Atrial Rate : 082 BPM P-R Int : 180 ms QRS Dur : 088 ms QT Int : 360 ms P-R-T Axes : 076 057 053 degrees QTc Int : 420 ms Normal sinus rhythm Normal ECG When compared with ECG of 11-FEB-2022 12:19, No significant change was found Referred By: Christiano Stewart Electronically Signed By:CHUCHO RIZVI MD
== END 2023-06-04 10:10 | disposition home or self-care (01) ==
LOC: HO.XRAY 10:09
PROVIDERS: Visit Provider Surgery
DX: E66.9 Obesity, unspecified (principal); Z68.35 Body mass index [BMI] 35.0-35.9, adult; I10 Essential (primary) hypertension; K21.9 Gastro-esophageal reflux disease without esophagitis; G47.30 Sleep apnea, unspecified
CPT/HCPCS: 71046; 93005

== ENCOUNTER → 2023-06-04 10:13 | Outpatient (BNV) | payer MEDICAID, SELFPAY | PROVIDERS: Visit Provider Internal Medicine Cardiovascular Disease | DX: Z01.810 Encounter for preprocedural cardiovascular examination (principal) | CPT/HCPCS: 93010 ==

== ENCOUNTER 2023-06-12 11:38 | Outpatient (REF) | payer MEDICAID, SELFPAY ==
[2023-06-15 07:34] LABS: TS Negative Control Passed; TS Panel A 0; TS Panel B 0; TS Positive Control Passed; TSpotTB Negative (Negative)
== END 2023-06-12 11:39 | disposition home or self-care (01) ==
LOC: HO.CHCLDS 11:38
PROVIDERS: Visit Provider Pediatrics
DX: Z11.1 Encounter for screening for respiratory tuberculosis (principal)
CPT/HCPCS: 36415; 86481

== ENCOUNTER 2023-06-17 15:04 | Outpatient (AMB) | payer MEDICAID, SELFPAY ==
--- NOTE | 2023-06-17 15:10 | A.OFFVIS_ITS ---
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 she has been doing her shakes. She is seeking more guidance about how to create a healthy balanced plate. Signed up classes with email: [email or web address] hasn't taken them yet Dietary counseling reduction Who buys your food self Who prepares/cooks your food self Meal frequency regular: breakfast (9am) and dinner (5pm) and never: lunch Lifestyle Eating out 1-3 times/week Food frequency Fruit: several times weekly, Vegetables: several times weekly, Grains/pasta/breads/cereal (carbs): daily, Water: daily, Soda: daily, Juice: daily and Coffee: daily Monitoring/Goals Nutrition problem monitoring total energy intake, level of knowledge/skill, total PRO intake, total CHO intake and weight Outcome progress progressing Learning/Education Readiness to learn good Stages of change action Educational materials provided Yes Most Recent Diabetes Results: Cholesterol 209 mg/dL (<200) H 06/04/23 HDL Cholesterol 52 mg/dL (>40) 06/04/23 Triglycerides 130 mg/dL (<150) 06/04/23 Creatinine 0.76 mg/dL (0.5-1.4) 06/04/23 Blood Urea Nitrogen 7 mg/dL (9-16) L 06/04/23 Sodium 141 mmol/L (135-145) 06/04/23 Potassium 3.9 mmol/L (3.3-5.1) 06/04/23 Chloride 107 mmol/L (96-108) 06/04/23 Carbon Dioxide 26 mmol/L (22-29) 06/04/23 Calcium 9.1 mg/dL (8.4-10.2) 06/04/23 AST 11 U/L (5-31) 06/04/23 ALT 10 U/L (0-31) 06/04/23 Total Protein 6.8 g/dL (6.5-8.0) 06/04/23 Albumin 3.8 g/dL (3.5-5.0) 06/04/23 PFSH Medical History (Updated 06/02/23 @ 12:24 by Christiano Stewart MD) Insomnia Degenerative joint disease of left hand Carpal tunnel syndrome on both sides Gastroparesis Urinary incontinence Hypertension GERD (gastroesophageal reflux disease) Panic attacks Anxiety Bipolar 1 disorder Sleep apnea Fibromyalgia Depression Surgical History H/O colonoscopy Hx of tubal ligation History of esophagogastroduodenoscopy (EGD) Hx of cholecystectomy Hx of section History of carpal tunnel surgery Family History Mother HTN (hypertension) Diabetes Father HTN (hypertension) Paternal Aunt Breast cancer Social History Household Members: Children Alcohol intake: never Patient Tobacco Use Status: Never used Tobacco Female Reproductive History Menstrual Age of Menarche: 15 Assessment & Plan Assessment & Plan (1) BMI 35.0-35.9,adult: Code(s): Z68.35 - Body mass index [BMI] 35.0-35.9, adult Plan pt will be seen again but she wants to call the office back to schedule her follow up as she does not know her upcoming schedule Coding Level of Care Code Nutr Indiv Intake (66263) Diagnoses BMI 35.0-35.9,adult Z68.35 Time Spent (min) 30
== END 2023-06-17 15:47 | disposition home or self-care (01) ==
PROVIDERS: PCP Pediatrics; Visit Provider Dietitian, Registered
DX: Z68.35 Body mass index [BMI] 35.0-35.9, adult (principal)

== ENCOUNTER → 2023-06-17 15:04 | Outpatient (BNVA) | payer MEDICAID, SELFPAY | PROVIDERS: PCP Pediatrics; Visit Provider Dietitian, Registered | DX: Z71.3 Dietary counseling and surveillance (principal) | CPT/HCPCS: 97802 ==

== ENCOUNTER 2023-07-04 07:57 | Outpatient (AMB) | payer MEDICAID, SELFPAY ==
--- NOTE | 2023-07-04 14:33 | A.OFFVIS_ITS ---
Intake Intake Visit Reasons: TV Follow Up SWL - 1ST *RESEARCH PHYSICIAN* Allergies acetaminophen [Percocet] Allergy (Severe, Verified 06/02/23 12:00) itch oxycodone [Percocet] Allergy (Severe, Verified 06/02/23 12:00) itch Sulfa (Sulfonamide Antibiotics) [SULFA(SULFONAMIDE ANTIBIOTICS)] Allergy (Mild, Verified 06/02/23 12:00) RASH SEAFOOD Allergy (Severe, Uncoded 06/02/23 12:00) SWELLING HPI TV Follow Up SWL - 1ST *RESEARCH PHYSICIAN* HPI Details Start time: 2.15pm, End time: 2.35pm ?I spent 15 minutes speaking with the patient on the phone plus an additional 5 minutes reviewing and updating records for a total of 20 minutes HPI Comments History of Present Illness Details Has Covid symptoms and is going to the ER Blood work, EKG, CXR were reviewed and were OK [facility] Medical History (Updated 06/02/23 @ 12:24 by Christiano Stewart MD) Insomnia Degenerative joint disease of left hand Carpal tunnel syndrome on both sides Gastroparesis Urinary incontinence Hypertension GERD (gastroesophageal reflux disease) Panic attacks Anxiety Bipolar 1 disorder Sleep apnea Fibromyalgia Depression Surgical History H/O colonoscopy Hx of tubal ligation History of esophagogastroduodenoscopy (EGD) Hx of cholecystectomy Hx of section History of carpal tunnel surgery Family History Mother HTN (hypertension) Diabetes Father HTN (hypertension) Paternal Aunt Breast cancer Social History (Reviewed 04/24/23 @ 12:13 by Ngozi Nogueira [facility] [place]) Household Members: Children Alcohol intake: never Patient Tobacco Use Status: Never used Tobacco Female Reproductive History Menstrual Age of Menarche: 15 Assessment & Plan Assessment & Plan (1) Obesity: Code(s): E66.9 - Obesity, unspecified Qualifiers: Obesity type: due to excess calories Obesity classification: adult class 2 (BMI 35 - 39.9) Serious obesity comorbidity presence: with serious comorbidity Body mass index: BMI 35.0-35.9 Qualified Code(s): E66.01 - Morbid (severe) obesity due to excess calories; Z68.35 - Body mass index [BMI] 35.0- 35.9, adult Plan: 2. Nutritional counseling. Start with 3 CELEBRATE REBUILD protein (buy at hospital[facility] gift [facility]) shakes (ONE scoop EACH in 8oz low fat unsweetened almond milk each) at 8am-10am and 11am-1pm and 2pm-4pm, dinner at 5pm (8 forks of protein and 8 forks of salad/vegetables) AND one more Celebrate protein shake (1 scoop) after dinner at 7pm-9pm. So you do 2 protein shakes, 2 protein bars and one meal per day. Meal to include lean meat (beef, fish, pork, turkey, chicken), or slovak yogurt, or egg whites, or beans with a salad with olive oil and fruits (berries, pears, apples, kiwi). Avoid salt, breads, potatoes, rice, pasta, desserts. 3. Each shake would be drunk slowly, like coffee in a period of 2 hours. Please add your coffee into your shakes to avoid the creamer. Use decaff coffee preferably. 4. Cut each bar in 4 pieces and eat each piece in 30min ?to make each bar last 2 hours. 5. I emphasized the importance of measuring accurately the food portion and measure it when serving the food in plate 6. The meal portions include 8 full-size forks of meat and 8 full-size forks of salad. You always eat the meat portion but you can replace up to 4 forks for salad/vegetables with rice, potatoes or pasta, or a fruit ?if you like. The less you do it the better weight loss will be. 7. One full-size fork is what it can be scooped on the fork without falling aside and not what can be bit with the fork. Use regular forks like those you find in a typical restaurant. 8.? Please send me weight measurements as soon as possible and then once a week. Always include your diet and exercise plan. 9. Start treadmill with an incline of 2.0 and speed of 3.0. Increase incline by 1 every 3 min to a max incline of 8.0, stay 3min at 8.0 and then return to 2.0 and repeat same steps until calorie goal is met. Goal is to burn 2000 calories per week on exercise, which means either 300 calories daily, or 400 calories 5 days per week, or 500 calories 4 days per week, or 650 calories 3 days per week. Start also weight exercises with 20-30lbs for chest/shoulders/abdomen and 40- 50lbs for thighs doing 2 sets of 15 repetitions each. Telehealth Telehealth Location of provider rendering services: practice address Location of patient: address on file Patient Identification confirmed using: Name, : Yes Telehealth method: voice only Patient verbally consented to treatment: Yes Patient verbally consented to billing insurance company: Yes Patient informed of any privacy concerns related to visit: Yes Minutes spent on Phone/Video with Pt.: 20 Coding Level of Care Code Tele Est Pt Level 3 (35092) Diagnoses Class 2 severe obesity due to excess calories with serious comorbidity and body mass index (BMI) of 35.0 to 35.9 in adult E66.01; Z68.35 Obesity type: due to excess calories Obesity classification: adult class 2 (BMI 35 - 39.9) Serious obesity comorbidity presence: with serious comorbidity Body mass index: BMI 35.0-35.9 Time Spent (min) 20
== END 2023-07-04 14:36 | disposition home or self-care (01) ==
LOC: HO.HBS 07:57
PROVIDERS: PCP Pediatrics; Visit Provider Surgery
DX: E66.01 Morbid (severe) obesity due to excess calories (principal); Z68.35 Body mass index [BMI] 35.0-35.9, adult
CPT/HCPCS: 99213

== ENCOUNTER → 2023-07-04 07:57 | Outpatient (BNVA) | payer MEDICAID, SELFPAY | PROVIDERS: PCP Pediatrics; Visit Provider Surgery ==

== ENCOUNTER 2023-07-23 09:16 | Outpatient (REF) | payer MEDICAID, SELFPAY ==
[2023-07-23 11:15] LABS: MANUAL DIFF FLAG NO
[2023-07-23 11:27] LABS: Basophils Percent Auto 0.5 % (0-2); Eosinophils Absolute Auto 0.1 X10*3/uL (0.0-0.4); Eosinophils Percent Auto 0.8 % (0-4); Hematocrit 38.8 % (37.0-47.0); Hemoglobin 12.9 g/dl (12.0-16.0); Imm Gran Abs Auto 0.02 X10*3/uL (0.00-0.03); Imm Gran Pct Auto 0.3 % (0.0-0.4); Lymphocytes Absolute Auto 1.8 X10*3/uL (1.2-4.9); Lymphocytes Percent Auto 29.4 % (20-40); Mean Corpuscular HGB Conc 33.2 g/dl (31.0-35.0); Mean Corpuscular Hemoglobin 30.6 pg (27.0-33.0); Mean Corpuscular Volume 92.2 fL (80.0-98.0); Mean Platelet Volume 9.2 fL (9.4-12.3); Monocytes Absolute Auto 0.5 X10*3/uL (0.1-1.2); Monocytes Percent Auto 7.4 % (2-11); Neutrophils Absolute Auto 3.8 x10*3/uL (2.0-8.3); Neutrophils Percent Auto 61.6 % (45-73); Platelet Count 261 X10*3/uL (160-400); Red Blood Count 4.21 X10*6/uL (4.20-5.50); White Blood Count 6.2 X10*3/uL (4.8-10.8)
[2023-07-23 11:41] LABS: Alanine Aminotransferase 11 U/L (0-31); Alkaline Phosphatase 89 U/L (39-117); Anion Gap 9 (12-20); Aspartate Amino Transferase 12 U/L (5-31); Bilirubin Total 0.2 mg/dL (0.0-1.0); Blood Urea Nitrogen 9 mg/dL (9-16); C Reactive Protein 0.31 mg/dL (< or = 0.50); Calcium 9.9 mg/dL (8.4-10.2); Carbon Dioxide 28 mmol/L (22-29); Chloride 105 mmol/L (96-108); Estimated Glomerular Filt Rate > 60; Glucose Random 93 mg/dL (60-115); Lipase 32 U/L (8-78); Sodium 138 mmol/L (135-145); Total Protein 7.4 g/dL (6.5-8.0)
[2023-07-23 12:01] LABS: ~HepC Num1 0.09 S/CO (0.00-0.79); ~Hepatitis C Antibody Nonreactive (Nonreactive)
[2023-07-24 14:20] LABS: Appearance Urine Turbid; Color Urine Dark Yellow; Glucose Urine UA Negative (Negative); Leukocyte Esterase Urine Trace (Negative); Nitrite Urine Negative (Negative); Specific Gravity - Urine >= 1.030 (1.005-1.025); UMIC TRIGGER UACC YES; Urine Blood Negative (Negative); Urine Ketones Trace mg/dL (Negative); Urine Protein Negative (Neg-Trace)
[2023-07-24 14:30] LABS: Bacteria Urine Trace (None Seen); Hyaline Casts Urine 0-2 /LPF (0-2); Other Crystals Urine Present; RBC Urine 0-2 /HPF (0-2); WBC Urine 0-5 /HPF (0-5)
== END 2023-07-23 09:17 | disposition home or self-care (01) ==
LOC: HO.HHCL 09:16
PROVIDERS: Visit Provider Emergency Medicine
DX: R10.30 Lower abdominal pain, unspecified (principal)
CPT/HCPCS: 36415; 80053; 81001; 83690; 85025; 86140; 86803

== ENCOUNTER 2023-08-12 08:48 | Outpatient (AMB) | payer MEDICAID, SELFPAY ==
--- NOTE | 2023-08-12 08:52 | MHC.OFFVIS ---
Intake Vital Signs 08/12/23 08:55 Height 5 ft 6 in Weight 224 lb 13.944 oz BMI 36.3 BP 147/71 H Blood Pressure Location Lt brachial Position Sitting Pulse 88 Intake Visit Reasons: Follow up [facility]IC N/S last appt Intake Note: Millicent presents in the office as a follow up for CIC. CC: Pains in the epigastric and right side of her abdomen. She states she is having lots of nausea, all foods make her nauseous. Regular constipation but she states the pills that you gave her work for her. She states she gets a lot of acid reflux. 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 Discussed with patient avoiding dietary triggers in late night snacking. Staying upright for minimum 3 hours after meals discussed with patient. Patient can continue taking his pantoprazole twice a day, however discussed with patient that we will decrease it to once a day next visit. Patient can continue taking sucralfate at bedtime. She was encouraged to eat smaller meals and more often. To prevent abdominal bloating patient was encouraged to making sure that she drinks plenty fluids so she can evacuate her bowels better as well as increase exercise. Weight loss was encouraged. I will see patient in 2 months, sooner on as needed basis. Patient is agreeable to this plan and understanding of instructions. She was given the opportunity to ask questions and all questions answered. TODAY'S VISIT Patient is here today for follow-up and requested visit. Patient states that since last time I have seen her she has been feeling worse especially in the last few weeks. Patient went to see weight management and does not know if she will pursue with the surgery. Patient admits to feeling depressed and binge eating when she feels that way. Some of her medication are also making her want to snack. Patient does eat lots of sugars, however recently she has not had much of an appetite. Reports epigastric discomfort postprandially. Continues with acid reflux and dyspepsia with occasional trouble swallowing. Patient feels like the food gets stuck in the lower part of the esophagus. Patient reports occasional nausea. States that her bowels are moving better now that she is taking Motegrity. Patient denies any melena, hematochezia or ribbon like stools. [facility] Medical History Insomnia Degenerative joint disease of left hand Carpal tunnel syndrome on both sides Gastroparesis Urinary incontinence Hypertension GERD (gastroesophageal reflux disease) Panic attacks Anxiety Bipolar 1 disorder Sleep apnea Fibromyalgia Depression Surgical History H/O colonoscopy Hx of tubal ligation History of esophagogastroduodenoscopy (EGD) Hx of cholecystectomy Hx of section History of carpal tunnel surgery Family History Mother HTN (hypertension) Diabetes Father HTN (hypertension) Paternal Aunt Breast cancer Social History Household Members: Children Alcohol intake: never Patient Tobacco Use Status: Never used Tobacco Female Reproductive History Menstrual Age of Menarche: 15 Review of Systems Const Denies weight gain and Denies weight loss ENT Reports no additional complaints, Denies dysphagia and Denies odynophagia Card Reports no additional complaints Resp Reports no additional complaints GI Reports abdominal pain (Epigastric), Denies belching, Denies melena, Reports bloating, Denies change in bowel habits, Reports constipation, Denies dysphagia, Denies excessive flatus, Reports dyspepsia, Reports heartburn, Denies diarrhea, Denies loose stools, Reports nausea, Denies odynophagia and Denies vomiting Reports no additional complaints Musc Reports no additional complaints Neuro Reports no additional complaints Psych Reports no additional complaints Endo Reports no additional complaints Physical Exam Vital Signs: Last Vital Signs Pulse 88 08/12/23 08:55 BP 147/71 H 08/12/23 08:55 BMI result Body Mass Index 36.3 Const General: healthy appearing, no acute distress and well developed Nutritional Appearance: well nourished Orientation/consciousness: patient oriented x3 Resp Effort & Inspection: normal respiratory effort, able to speak in complete sentences, no tracheal deviation and symmetric chest movement Auscultation: clear to auscultation bilaterally Cardio Rate: regular rate GI Inspection: Yes normal to inspection and No distended Palpation (GI): Soft to palpation, not firm, nontender and No hepatosplenomegaly present Auscultation: normal bowel sounds General: Yes no CVA tenderness Back/Spine/Pelvis Back: no CVA tenderness Skin General skin exam: elasticity normal, turgor normal and dry skin Neuro General: patient oriented x3 Psych Appearance: grossly normal Mental Status: mental status grossly normal Assessment & Plan Assessment & Plan (1) Gastroparesis: Code(s): K31.84 - Gastroparesis (2) GERD (gastroesophageal reflux disease): Code(s): K21.9 - Gastro-esophageal reflux disease without esophagitis Qualifiers: Esophagitis presence: esophagitis presence not specified Qualified Code(s): K21.9 - Gastro-esophageal reflux disease without esophagitis (3) Constipation: Code(s): K59.00 - Constipation, unspecified Qualifiers: Constipation type: chronic idiopathic constipation Qualified Code(s): K59.04 - Chronic idiopathic constipation (4) Dyspepsia: Code(s): R10.13 - Epigastric pain (5) Dysphagia: Code(s): R13.10 - Dysphagia, unspecified Plan Patient will go or upper GI would barium swallow to rule out hernia, stricture in lower esophagus, Schatzki ring, achalasia. Will change pantoprazole Nexium. Patient was also encouraged to avoid dietary triggers and late night snacking. Patient will try to take berberine supplement in the morning with breakfast to help her suppress cravings. Patient was encouraged to increase fluid intake and activity to promote better bowel motility. Patient reports waking up feeling nauseous. She will start taking famotidine at bedtime. Discussed with patient avoid dietary triggers and late night snacking. Staying upright for minimum 3 hours after meals discussed with patient. Patient is moving her bowels better, however she continues to feel constipated and very bloated. Patient will start taking Dulcolax tablets at bedtime. Patient will return in 6 weeks, sooner on as needed basis. Patient is agreeable to this plan and verbalizes understanding of instructions. She was given the opportunity to ask questions and all questions answered. Thank you for allowing me to participate in her care Orders: Orders [place] upper GI w Ba Swallow Today K21.9 - Gastro-esophageal reflux disease without esophagitis, K31.84 - Gastroparesis, R13.10 - Dysphagia, unspecified Medications: New esomeprazole magnesium (Nexium) 40 mg PO DAILY 30 caps 5RF K21.9 - Gastro-esophageal reflux disease without esophagitis bisacodyl (Dulcolax (bisacodyl)) 10 mg (2 x 5 mg) PO BEDTIME 180 tabs 4RF Discontinued sucralfate Discontinued Reason: Doctor's Order 1 g PO BEDTIME 30 tabs 4RF R19.7 - Diarrhea, unspecified pantoprazole Discontinued Reason: Doctor's Order 40 mg PO BID 60 tabs 4RF K21.9 - Gastro-esophageal reflux disease without esophagitis Coding Level of Care Code Est Pt Level 4 (02743) Diagnoses Gastroparesis K31.84 Gastroesophageal reflux disease, unspecified whether esophagitis present K21.9 Esophagitis presence: esophagitis presence not specified Chronic idiopathic constipation K59.04 Constipation type: chronic idiopathic constipation Dyspepsia R10.13 Dysphagia R13.10 Time Spent (min) 40 Comment 25 minutes spent with patient and additional 15 minutes spent reviewing her records
[2023-08-12 08:55] VITALS: BP 147/71; PULSE 88; BMI 36.3
== END 2023-08-12 09:41 | disposition home or self-care (01) ==
PROVIDERS: PCP Pediatrics; Visit Provider Nurse Practitioner Family
DX: K31.84 Gastroparesis (principal); K21.9 Gastro-esophageal reflux disease without esophagitis; K59.04 Chronic idiopathic constipation; R10.13 Epigastric pain; R13.10 Dysphagia, unspecified
CPT/HCPCS: 99214

== ENCOUNTER → 2023-08-12 08:48 | Outpatient (BNVA) | payer MEDICAID, SELFPAY | PROVIDERS: PCP Pediatrics; Visit Provider Nurse Practitioner Family | DX: K31.84 Gastroparesis (principal); K21.9 Gastro-esophageal reflux disease without esophagitis; K59.04 Chronic idiopathic constipation; R10.13 Epigastric pain; R13.10 Dysphagia, unspecified | CPT/HCPCS: 99212 ==

== ENCOUNTER 2023-08-21 15:17 | Emergency (ER) | payer MEDICAID, SELFPAY ==
--- NOTE | ~2023-08-21 | CT_ITS ---
EXAMINATION: CT ABDOMEN AND PELVIS WITHOUT CONTRAST CLINICAL INFORMATION: Epigastric pain, history of hiatal hernia. COMPARISON: CT abdomen/pelvis 04/09/2022. TECHNIQUE: Multidetector volumetric imaging was performed from the superior aspect of the liver through the pubic symphysis. Sagittal and coronal reformatted images were obtained on the technologist's workstation. This CT examination was performed using dose optimization techniques as appropriate, variously including the following: *Automated exposure control *Adjustment of mA and/or kV according to patient size (this includes techniques or standardized protocols for targeted exams where dose is matched to indication/reason for exam; i.e. extremities or head) *Use of iterative reconstruction technique DLP: 790 mGy-cm FINDINGS: The lack of intravenous contrast limits evaluation of the solid visceral organs including the liver, spleen, pancreas, and kidneys. LUNG BASES: New small bilateral pleural effusions. LIVER, GALLBLADDER, AND BILIARY TREE: Enlarged liver with low-attenuation suggesting hepatic steatosis. No discrete focal liver lesion in this limited noncontrast examination. Cholecystectomy. No biliary ductal dilatation. PANCREAS: Unremarkable. SPLEEN: Unremarkable. ADRENAL GLANDS: Unremarkable. KIDNEYS AND URETERS: No nephrolithiasis or hydronephrosis. No significant perinephric fat stranding. Homogeneous high density focus in the lower right kidney with attenuation reaching 67 Hounsfield units is most suggestive of a proteinaceous/hemorrhagic Bosniak 2 cyst, for which no imaging follow-up is recommended. BLADDER: Unremarkable. GASTROINTESTINAL TRACT: Trace hiatal hernia. Nonspecific mildly distended loops of small bowel in the right abdomen measuring up to 3.3 cm in diameter. No discrete transition point. No evidence of volvulus. Normal appendix (6:42). Mild colonic diverticulosis without significant pericolonic inflammatory changes. Moderate degree of stool content in the proximal colon. ABDOMINAL WALL: Midline lower abdominal surgical scar. No significant hernia. Chronic superficial soft tissue calcifications in the right gluteal region (3:71) LYMPH NODES: Scattered prominent retroperitoneal lymph nodes, for instance measuring 0.9 cm in short axis to the left of the aorta at the level of the kidneys (3:38) are unchanged. Prominent right lower paraesophageal lymph node measuring 1 cm in short axis (6:3) is unchanged. VASCULAR: Normal caliber abdominal aorta. Scattered atherosclerotic disease. PELVIC VISCERA: Postsurgical changes suggesting prior . Equivocal wall thickening of the upper third of the vagina (3:78). No significant inflammatory changes. No free fluid. Symmetric high riding ovaries. OSSEOUS STRUCTURES: Degenerative changes of the spine. No acute or aggressive appearing osseous findings. CT/CT abdomen pelvis wo IV con IMPRESSION: 1. New small bilateral pleural effusions. 2. Nonspecific mildly distended loops of small bowel in the right abdomen. Findings could be related with ileus, enteritis or less likely partial small bowel obstruction. Recommend continued follow-up according to clinical criteria. 3. Hepatomegaly and hepatic steatosis. 4. Equivocal wall thickening of the upper third of the vagina. Correlate with physical examination. 5. Mild colonic diverticulosis without significant pericolonic inflammatory changes to suspect acute diverticulitis. 6. Trace hiatal hernia.
[2023-08-21 15:36] VITALS: BP 176/94; PULSE 82; RESP 18; TEMP 36.4; O2SAT 96; BMI 36.4
--- NOTE | 2023-08-21 15:36 | ED.GENADULT ---
HPI - General Adult General Chief complaint: General Medical Stated complaint: hernia in esophagus area, front: back pain Time Seen by Provider: 08/21/23 21:43 Source: patient Mode of arrival: ambulatory Limitations: no limitations History of Present Illness HPI narrative: Patient comes to the emergency room complaining of epigastric pain since yesterday. Patient states that the pain radiates towards the back. Patient states it is uncomfortable, but tolerable, no distension. Patient denies nausea vomiting diarrhea fever or chills. Patient states that she does have history of a hiatal hernia and has had similar discomfort, but never radiating towards the back. Patient denies chest pain or shortness of breath. Related Data Home Medications Medication Instructions Recorded Confirmed clonidine HCl 0.2 mg tablet 1 tab PO BID 02/05/21 06/02/23 labetalol 200 mg tablet 1 tab PO BID 02/05/21 06/02/23 cholecalciferol (vitamin D3) 50 50 mcg PO DAILY 10/26/21 06/02/23 mcg (2,000 unit) capsule clonazepam 1 mg tablet 1 mg PO TID PRN Anxiety 10/26/21 06/02/23 duloxetine 60 mg capsule,delayed 60 mg PO BID 10/26/21 06/02/23 release ketotifen fumarate 0.025 % (0.035 1 drp ophthalmic (eye) BID 10/26/21 06/02/23 %) eye drops lurasidone 120 mg tablet (Latuda) 120 mg PO DAILY 10/26/21 06/02/23 zolpidem 10 mg tablet 10 mg PO BEDTIME 10/26/21 06/02/23 ferrous sulfate 325 mg (65 mg 325 mg PO 06/27/22 06/02/23 iron) tablet (FeroSul) pregabalin 100 mg capsule 100 mg PO BID 02/14/23 06/02/23 lisinopril 10 mg tablet 20 mg PO QAM 06/02/23 06/02/23 famotidine 40 mg tablet 40 mg PO BEDTIME 08/12/23 prazosin 1 mg capsule mg PO 08/12/23 quetiapine 100 mg tablet 100 mg PO BEDTIME 08/12/23 Previous Rx's Medication Instructions Recorded prucalopride 2 mg tablet 2 mg PO DAILY #30 tabs 04/22/23 (Motegrity) bisacodyl 5 mg tablet,delayed 10 mg (2 x 5 mg) PO BEDTIME #180 08/12/23 release (Dulcolax (bisacodyl)) tabs esomeprazole magnesium 40 mg 40 mg PO DAILY #30 caps 08/12/23 capsule,delayed release (Nexium) ketorolac 10 mg tablet 10 mg PO Q8H PRN pain #10 tabs 08/21/23 Allergies Allergy/AdvReac Type Severity Reaction Status Date / Time oxycodone [Percocet] Allergy Severe itch Verified 08/12/23 08:55 Sulfa (Sulfonamide Allergy Mild RASH Verified 08/12/23 08:55 Antibiotics) [SULFA(SULFONAMIDE ANTIBIOTICS)] SEAFOOD Allergy Severe SWELLING Uncoded 08/12/23 08:55 Review of Systems Review of Systems: Constitutional : No Weight loss, No Fever, No Chills, No Night Sweats, No Fatigue, No Malaise ENT/Mouth : No Hearing loss, No Ear Pain, No Nasal Congestion, No Sinus Pain, No Hoarseness, No sore throat, No Rhinorrhea, No Swallowing Difficulty Eyes: No Eye Pain, No Swelling, No Redness, No Foreign Body, No Discharge, No Vision Changes Cardiovascular : No Chest Pain, No SOB, No Dyspnea on Exertion, No Orthopnea, No Edema, No Palpitations Respiratory : No Cough, No Sputum, No Wheezing, No Smoke Exposure, No Dyspnea Gastrointestinal : Patient has nausea vomiting or diarrhea, complaining of epigastric pain radiating towards the back Genitourinary : no irregular bleeding, No Dysuria, No Urinary Frequency, No Hematuria, No Urinary Incontinence, No Urgency, No Flank Pain, No Urinary Flow Changes, No Hesitancy Musculoskeletal : No joint pain, No Myalgias, No Joint Swelling Skin : No Skin Lesions, No rash Neuro : No Weakness, No Numbness, No Paresthesias, No Loss of Consciousness, No Dizziness, No Headache Psych : No Anxiety/Panic, No Depression, No SI/HI/AH/VH, No Social Issues, Heme/Lymph: No Bruising, No Bleeding,No Lymphadenopathy Endocrine : No Polyuria, No Polydipsia, No Temperature Intolerance PMFSH Past Medical History Medical History Insomnia Degenerative joint disease of left hand Carpal tunnel syndrome on both sides Gastroparesis Urinary incontinence Hypertension GERD (gastroesophageal reflux disease) Panic attacks Anxiety Bipolar 1 disorder Sleep apnea Fibromyalgia Depression Surgical History H/O colonoscopy Hx of tubal ligation History of esophagogastroduodenoscopy (EGD) Hx of cholecystectomy Hx of section History of carpal tunnel surgery Family History Family History Mother HTN (hypertension) Diabetes Father HTN (hypertension) Paternal Aunt Breast cancer Social History Social History Household Members: Children Alcohol intake: never Patient Tobacco Use Status: Never used Tobacco Advance Directives: No Advance Directives Information Provided: No Physical Exam ED Vital Signs: Vital Signs - 24 hr 08/21/23 15:36 08/21/23 18:12 Temperature 97.5 F 97.5 F Pulse Rate 82 96 Respiratory Rate 18 18 Blood Pressure 176/94 H 164/101 H Pulse Oximetry 96 100 Oxygen Delivery Method Room Air Room Air BMI result Body Mass Index 36.4 Const Other: Appearance: Alert. Oriented X3. No acute distress. Eyes: Pupils equal, round and reactive to light. ENT: Pharynx normal. Neck: Normal inspection. Neck supple. No lymph nodes noted. No crepitus CVS: Normal heart rate and rhythm. Pulses normal. Normal S1 and S2 Respiratory: No respiratory distress. Breath sounds normal. No Wheezing. No rales Abdomen: Soft , mild tenderness to palpation in epigastric area, no rebound or guarding, no periumbilical pain, negative Montanez sign, No rigidity. No distention. Skin: Skin warm and dry. Normal skin color. Normal skin turgor. Extremities: No lower extremity edema. No Lacerations. No Rash Neuro: Oriented X 3. No motor deficit. No sensory deficit. Moving all extremities. No slurred speech. CN 2 through 12 grossly intact Psych: calm, cooperative, normal affect Course Course Course Narrative: RME:?47 yo nigerien speaking female w/ hx of anxiety, bipolar disorder, depression, fibromyalgia, gastroparesis, GERD, HTN, panic attacks, and ANNETTE presents to the ED today for eval of epigastric discomfort on waking this morning. described as pressure . reports pain previously when diagnosed with her hiatal hernia. reports assoc sob d/t pain, nausea without vomiting and DOMINGUEZ. labs, imaging ordered. Full HPI, ROS and PE to be performed by the primary ED provider. Medical Decision Making Medical Decision Making [facility] Narrative: -my interpretation of labs: Hematology and chemistry and LFTs within normal limits. Patient's lipase is slightly bumped at 148. -my interpretation of CT scan: No obvious abnormality. Per Radiology, pancreas is unremarkable - patient is well-appearing, given patient's physical exam and symptoms and elevated lipase, patient likely has mild pancreatitis. -discussed with the patient the above-mentioned. Patient may still go home, patient was given a dose of IM ketorolac. Patient will follow a clear liquid diet for 4 days and follow-up with her pharmacologist. Patient agrees with plan. Discussed with the patient that if the pain worsens or she has any new symptoms, to return immediately to the emergency room, and possibly plan for admission. At this time, patient would prefer not to be admitted since she has her young daughter with her Differential Diagnosis Differential Diagnoses: The differential diagnosis associated with the presentation includes (SBO, gastritis, gastroenteritis, hiatal hernia, pancreatitis, peptic ulcer disease) Admission/Observation Consideration of admission/observation: Escalation of care including admission/observation considered (Given patient's symptoms and labs admission considered.) Lab Data [facility] Lab Attestation statement: I reviewed the patient's lab results. 08/21/23 17:28 08/21/23 17:28 Labs: Lab Results 08/21/23 Range/Units 17:28 WBC 7.9 (4.8-10.8) X10*3/uL RBC 4.49 (4.20-5.50) X10*6/uL Hgb 13.7 (12.0-16.0) g/dl Hct 40.8 (37.0-47.0) % MCV 90.9 (80.0-98.0) fL MCH 30.5 (27.0-33.0) pg MCHC 33.6 (31.0-35.0) g/dl RDW 11.9 (11.0-16.0) % Plt Count 246 (160-400) X10*3/uL MPV 8.2 L (9.4-12.3) fL Immature Gran % (Auto) 0.4 (0.0-0.4) % Neut % (Auto) 65.4 (45-73) % Lymph % (Auto) 24.1 (20-40) % [place] % (Auto) 7.5 (2-11) % Eos % (Auto) 2.3 (0-4) % Baso % (Auto) 0.3 (0-2) % Lymph # (Auto) 1.9 (1.2-4.9) X10*3/uL [place] # (Auto) 0.6 (0.1-1.2) X10*3/uL Eos # (Auto) 0.2 (0.0-0.4) X10*3/uL Baso # (Auto) 0.0 (0.0-0.2) X10*3/uL Abs Immat Gran (auto) 0.03 (0.00-0.03) X10*3/uL Absolute Neuts (auto) 5.2 (2.0-8.3) x10*3/uL Absolute Nucleated RBC 0.000 (0.0-0.012) X10*3/uL Nucleated RBC % (auto) 0.0 (0.0-0.2) /100WBC Sodium 140 (135-145) mmol/L Potassium 5.1 D (3.3-5.1) mmol/L Chloride 100 (96-108) mmol/L Carbon Dioxide 29 (22-29) mmol/L Anion Gap 16 (12-20) BUN 5 L (9-16) mg/dL Creatinine 0.73 (0.5-1.4) mg/dL Estim Creat Clear Calc 117.5 Estimated GFR > 60 Random Glucose 105 (60-115) mg/dL Calcium 10.2 (8.4-10.2) mg/dL Magnesium 2.1 (1.6-2.6) mg/dL Total Bilirubin 0.3 (0.0-1.0) mg/dL AST 15 (5-31) U/L ALT 13 (0-31) U/L Alkaline Phosphatase 97 (39-117) U/L Total Protein 8.1 H (6.5-8.0) g/dL Albumin 4.4 (3.5-5.0) g/dL Triglycerides 245 H (<150) mg/dL Lipase 148 H (8-78) U/L Beta HCG, Quant < 2 mIU/mL Independent Interpretation I performed an independent interpretation of an: CT Scan Radiology Impression Discussion of test interpretation with radiology: I have reviewed the radiologist's reading. Radiologist Impression: FINDINGS: The lack of intravenous contrast limits evaluation of the solid visceral organs including the liver, spleen, pancreas, and kidneys. LUNG BASES: New small bilateral pleural effusions. LIVER, GALLBLADDER, AND BILIARY TREE: Enlarged liver with low-attenuation suggesting hepatic steatosis. No discrete focal liver lesion in this limited noncontrast examination. Cholecystectomy. No biliary ductal dilatation. PANCREAS: Unremarkable. SPLEEN: Unremarkable. ADRENAL GLANDS: Unremarkable. KIDNEYS AND URETERS: No nephrolithiasis or hydronephrosis. No significant perinephric fat stranding. Homogeneous high density focus in the lower right kidney with attenuation reaching 67 Hounsfield units is most suggestive of a proteinaceous/hemorrhagic Bosniak 2 cyst, for which no imaging follow-up is recommended. BLADDER: Unremarkable. GASTROINTESTINAL TRACT: Trace hiatal hernia. Nonspecific mildly distended loops of small bowel in the right abdomen measuring up to 3.3 cm in diameter. No discrete transition point. No evidence of volvulus. Normal appendix (6:42). Mild colonic diverticulosis without significant pericolonic inflammatory changes. Moderate degree of stool content in the proximal colon. ABDOMINAL WALL: Midline lower abdominal surgical scar. No significant hernia. Chronic superficial soft tissue calcifications in the right gluteal region (3:71) LYMPH NODES: Scattered prominent retroperitoneal lymph nodes, for instance measuring 0.9 cm in short axis to the left of the aorta at the level of the kidneys (3:38) are unchanged. Prominent right lower paraesophageal lymph node measuring 1 cm in short axis (6:3) is unchanged. VASCULAR: Normal caliber abdominal aorta. Scattered atherosclerotic disease. PELVIC VISCERA: Postsurgical changes suggesting prior . Equivocal wall thickening of the upper third of the vagina (3:78). No significant inflammatory changes. No free fluid. Symmetric high riding ovaries. OSSEOUS STRUCTURES: Degenerative changes of the spine. No acute or aggressive appearing osseous findings. CT/CT abdomen pelvis wo IV con IMPRESSION: 1. New small bilateral pleural effusions. 2. Nonspecific mildly distended loops of small bowel in the right abdomen. Findings could be related with ileus, enteritis or less likely partial small bowel obstruction. Recommend continued follow-up according to clinical criteria. 3. Hepatomegaly and hepatic steatosis. 4. Equivocal wall thickening of the upper third of the vagina. Correlate with physical examination. 5. Mild colonic diverticulosis without significant pericolonic inflammatory changes to suspect acute diverticulitis. 6. Trace hiatal hernia. Critical Care Time Critical Care Time Critical Care Time: Yes Total Critical Care Time: 45 Attestation: I have personally provided critical care time. Time includes review of lab data, radiology results, discussion with consultants, and monitoring for potential decompensation. Intervention performed as documented. Discharge Plan Discharge Clinical Impression: Pancreatitis Patient Disposition: Home, Self-Care Instructions: Pancreatitis (ED), Clear Liquid Diet (ED), Full Liquid Diet (DC) Additional Instructions: Please follow-up with your primary care physician tomorrow. If you have any worsening or new symptoms, please return to the emergency room or call 911 Prescriptions: New ketorolac 10 mg tablet 10 mg PO Q8H PRN (Reason: pain) Qty: 10 0RF Rx Instructions: maximum total duration of 5 days from all oral, intranasal, or parenteral formulations No Action Motegrity 2 mg tablet 2 mg PO DAILY Qty: 30 2RF labetalol 200 mg tablet 1 tab PO BID clonidine HCl 0.2 mg tablet 1 tab PO BID pregabalin 100 mg capsule 100 mg PO BID ferrous sulfate [FeroSul] 325 mg (65 mg iron) tablet 325 mg PO cholecalciferol (vitamin D3) 50 mcg (2,000 unit) capsule 50 mcg PO DAILY ketotifen fumarate 0.025 % (0.035 %) drops 1 drp ophthalmic (eye) BID Latuda 120 mg tablet 120 mg PO DAILY duloxetine 60 mg capsule,delayed release(DR/EC) 60 mg PO BID zolpidem 10 mg tablet 10 mg PO BEDTIME clonazepam 1 mg tablet 1 mg PO TID PRN (Reason: Anxiety) prazosin 1 mg capsule PO famotidine 40 mg tablet 40 mg PO BEDTIME quetiapine 100 mg tablet 100 mg PO BEDTIME esomeprazole magnesium [Nexium] 40 mg capsule,delayed release(DR/EC) 40 mg PO DAILY Qty: 30 5RF bisacodyl [Dulcolax (bisacodyl)] 5 mg tablet,delayed release (DR/EC) 10 mg PO BEDTIME Qty: 180 4RF lisinopril 10 mg tablet 20 mg PO QAM Stand Alone Forms: Work/School Release
[2023-08-21 17:32] LABS: MANUAL DIFF FLAG NO
[2023-08-21 17:37] LABS: Basophils Percent Auto 0.3 % (0-2); Eosinophils Absolute Auto 0.2 X10*3/uL (0.0-0.4); Eosinophils Percent Auto 2.3 % (0-4); Hematocrit 40.8 % (37.0-47.0); Hemoglobin 13.7 g/dl (12.0-16.0); Imm Gran Abs Auto 0.03 X10*3/uL (0.00-0.03); Imm Gran Pct Auto 0.4 % (0.0-0.4); Lymphocytes Absolute Auto 1.9 X10*3/uL (1.2-4.9); Lymphocytes Percent Auto 24.1 % (20-40); Mean Corpuscular HGB Conc 33.6 g/dl (31.0-35.0); Mean Corpuscular Hemoglobin 30.5 pg (27.0-33.0); Mean Corpuscular Volume 90.9 fL (80.0-98.0); Mean Platelet Volume 8.2 fL (9.4-12.3); Monocytes Absolute Auto 0.6 X10*3/uL (0.1-1.2); Monocytes Percent Auto 7.5 % (2-11); Neutrophils Absolute Auto 5.2 x10*3/uL (2.0-8.3); Neutrophils Percent Auto 65.4 % (45-73); Platelet Count 246 X10*3/uL (160-400); Red Blood Count 4.49 X10*6/uL (4.20-5.50); Red Cell Distribution Width 11.9 % (11.0-16.0); White Blood Count 7.9 X10*3/uL (4.8-10.8)
[2023-08-21 18:07] LABS: Alanine Aminotransferase 13 U/L (0-31); Albumin Level 4.4 g/dL (3.5-5.0); Alkaline Phosphatase 97 U/L (39-117); Anion Gap 16 (12-20); Aspartate Amino Transferase 15 U/L (5-31); Bilirubin Total 0.3 mg/dL (0.0-1.0); Blood Urea Nitrogen 5 mg/dL (9-16); Calcium 10.2 mg/dL (8.4-10.2); Carbon Dioxide 29 mmol/L (22-29); Chloride 100 mmol/L (96-108); Creatinine Clr Calc Pharmacy 117.5; Estimated Glomerular Filt Rate > 60; Glucose Random 105 mg/dL (60-115); Lipase 148 U/L (8-78); Magnesium 2.1 mg/dL (1.6-2.6); Potassium 5.1 mmol/L (3.3-5.1); Sodium 140 mmol/L (135-145); Total Protein 8.1 g/dL (6.5-8.0)
[2023-08-21 18:12] VITALS: BP 164/101; PULSE 96; RESP 18; TEMP 36.4; O2SAT 100
[2023-08-21 18:16] LABS: HCG Quantitative < 2 mIU/mL
[2023-08-21 18:52] LABS: Triglycerides 245 mg/dL (<150)
[2023-08-21 21:54] VITALS: BP 156/87; PULSE 71; RESP 18; TEMP 36.3; O2SAT 97
[2023-08-21] MEDS: Ketorolac Tromethamine 60 MG/2 ML VIAL IM (22:40)
[2023-08-22 03:09] VITALS: BP 156/87; PULSE 71; RESP 18; TEMP 36.3; O2SAT 97
== END 2023-08-22 03:09 | disposition home or self-care (01) ==
PROVIDERS: Physician Assistant Medical; Emergency Provider Emergency Medicine; PCP Pediatrics
DX: K85.90 Acute pancreatitis without necrosis or infection, unspecified (principal); I10 Essential (primary) hypertension
CPT/HCPCS: 36415; 74176; 80053; 83690; 83735; 84478; 84702; 85025; 96372; 99283; 99284; J1885

== ENCOUNTER 2023-08-27 09:26 | Outpatient (AMB) | payer MEDICAID, SELFPAY ==
--- NOTE | 2023-08-27 09:34 | A.OFFVIS_ITS ---
Intake Vital Signs 08/27/23 09:41 Height 5 ft 6 in Weight 227 lb 1.218 oz BMI 36.6 BP 153/85 H Blood Pressure Location Lt brachial Position Sitting Pulse 78 Pulse Source Pulse Oximeter Pulse Oximetry (%) 99 Oxygen Delivery Method Room Air Intake Visit Reasons: epigastric discomfort Intake Note: pt here for epigastric discomfort, abdominal pain and nausea for a week. Transfer Man Required: Yes Transfer Man Language: Citizen Of [place] Information Interpreted: non-clinical & clinical Accompanied by: Self / Same As Patient Allergies oxycodone [Percocet] Allergy (Severe, Verified 08/27/23 09:34) itch Sulfa (Sulfonamide Antibiotics) [SULFA(SULFONAMIDE ANTIBIOTICS)] Allergy (Mild, Verified 08/27/23 09:34) RASH SEAFOOD Allergy (Severe, Uncoded 08/27/23 09:34) SWELLING HPI epigastric discomfort HPI Details LAST VISIT Gastroparesis GERD (gastroesophageal reflux disease) Constipation Dyspepsia Dysphagia Plan Patient will go or upper GI would barium swallow to rule out hernia, stricture in lower esophagus, Schatzki ring, achalasia. Will change pantoprazole Nexium. Patient was also encouraged to avoid dietary triggers and late night snacking. Patient will try to take berberine supplement in the morning with breakfast to help her suppress cravings. Patient was encouraged to increase fluid intake and activity to promote better bowel motility. Patient reports waking up feeling nauseous. She will start taking famotidine at bedtime. Discussed with patient avoid dietary triggers and late night snacking. Staying upright for minimum 3 hours after meals discussed with patient. Patient is moving her bowels better, however she continues to feel constipated and very bloated. Patient will start taking Dulcolax tablets at bedtime. Patient will return in 6 weeks, sooner on as needed basis. Patient is agreeable to this plan and verbalizes understanding of instructions. She was given the opportunity to ask questions and all questions answered. ? Thank you for allowing me to participate in her care Orders Orders FL upper GI w Ba Swallow Today K21.9, K31.84, R13.10 Medications New esomeprazole magnesium (Nexium) 40 mg PO DAILY 30 caps 5RF K21.9 bisacodyl (Dulcolax (bisacodyl)) 10 mg (2 x 5 mg) PO BEDTIME 180 tabs 4RF Discontinued sucralfate Discontinued Reason: Doctor's Order 1 g PO BEDTIME 30 tabs 4RF R19.7 pantoprazole Discontinued Reason: Doctor's Order 40 mg PO BID 60 tabs 4RF K21.9 ED VISIT 08/22/2023 [facility] Narrative: -my interpretation of labs: Hematology and chemistry and LFTs within normal limits. Patient's lipase is slightly bumped at 148. -my interpretation of CT scan: No obvio us abnormality. Per Radiology, pancreas is unremarkable - patient is well-appearing, given belkis ent's physical exam and symptoms and elevated lipase, patient likely has mild pancreatitis. -discussed with the patient the above-me ntioned. Patient may still go home, patient was given a dose of IM ketorolac. Patient will follow a clear liquid diet for 4 days and follow-up with her vocational coordinator. Patient agrees with plan. Discussed with the patient that if the pain worsens or she has any new symptoms, to return immediately to the emergency room, and possibly plan for admission. At this time, patient would prefer not to be admitted since she has her young daughter with her TODAY'S VISIT: Patient is here today for requested visit. Patient was recently seen in the ER for epigastric pain. Patient had normal labs when in the ED except for elevated lipase. CT scan normal without any acute processes. Patient was on clear liquid diet for 4 days. Now is able to tolerate food. Able to eat. Patient states that she is moving her bowels better now. Patient is taking Motegrity in the morning him Dulcolax in the evening. Still feels full postprandially at times. Patient feels bloated postprandially. Patient is eating rice and beans almost every day. We have talked about changing her diet last visit. Patient denies dyspepsia, dysphagia or odynophagia. [facility] Medical History Insomnia Degenerative joint disease of left hand Carpal tunnel syndrome on both sides Gastroparesis Urinary incontinence Hypertension GERD (gastroesophageal reflux disease) Panic attacks Anxiety Bipolar 1 disorder Sleep apnea Fibromyalgia Depression Surgical History H/O colonoscopy Hx of tubal ligation History of esophagogastroduodenoscopy (EGD) Hx of cholecystectomy Hx of section History of carpal tunnel surgery Family History Mother HTN (hypertension) Diabetes Father HTN (hypertension) Paternal Aunt Breast cancer Social History Household Members: Children Alcohol intake: never Patient Tobacco Use Status: Never used Tobacco Female Reproductive History Menstrual Age of Menarche: 15 Review of Systems Const Denies weight gain and Denies weight loss ENT Reports no additional complaints, Denies dysphagia and Denies odynophagia Card Reports no additional complaints Resp Reports no additional complaints GI Reports abdominal pain, Denies belching, Denies melena, Reports bloating, Denies change in bowel habits, Reports constipation (Occasional), Denies dysphagia, Denies excessive flatus, Denies dyspepsia, Reports heartburn (Occasional), Denies diarrhea, Denies loose stools, Denies nausea, Denies odynophagia and Denies vomiting Reports no additional complaints Musc Reports no additional complaints Neuro Reports no additional complaints Psych Reports no additional complaints Endo Reports no additional complaints Physical Exam Vital Signs: Last Vital Signs Pulse 78 08/27/23 09:41 BP 153/85 H 08/27/23 09:41 Pulse Ox 99 08/27/23 09:41 Oxygen Delivery Method Room Air 08/27/23 09:41 BMI result Body Mass Index 36.6 Const General: healthy appearing and no acute distress Nutritional Appearance: obese Orientation/consciousness: patient oriented x3 Resp Effort & Inspection: normal respiratory effort, able to speak in complete sentences, no tracheal deviation and symmetric chest movement Auscultation: clear to auscultation bilaterally Cardio Rate: regular rate GI Inspection: Yes normal to inspection, No distended and Yes obesity Palpation (GI): Soft to palpation, not firm, nontender and No hepatosplenomegaly present Auscultation: normal bowel sounds General: Yes no CVA tenderness Back/Spine/Pelvis Back: no CVA tenderness Skin General skin exam: elasticity normal, turgor normal and dry skin Neuro General: patient oriented x3 Psych Appearance: grossly normal Mental Status: mental status grossly normal Results Reviewed Results Reviewed: CT SCAN OF ABDOEN AND PELVIS IMPRESSION: 1. New small bilateral pleural effusions. 2. Nonspecific mildly distended loops of small bowel in the right abdomen. Findings could be related with ileus, enteritis or less likely partial small bowel obstruction. Recommend continued follow-up according to clinical criteria. 3. Hepatomegaly and hepatic steatosis. 4. Equivocal wall thickening of the upper third of the vagina. Correlate with physical examination. 5. Mild colonic diverticulosis without significant pericolonic inflammatory changes to suspect acute diverticulitis. 6. Trace hiatal hernia. Assessment & Plan Assessment & Plan (1) Gastroparesis: Code(s): K31.84 - Gastroparesis (2) GERD (gastroesophageal reflux disease): Code(s): K21.9 - Gastro-esophageal reflux disease without esophagitis Qualifiers: Esophagitis presence: esophagitis presence not specified Qualified Code(s): K21.9 - Gastro-esophageal reflux disease without esophagitis (3) Constipation: Code(s): K59.00 - Constipation, unspecified Qualifiers: Constipation type: slow transit constipation Qualified Code(s): K59.01 - Slow transit constipation (4) Dyspepsia: Code(s): R10.13 - Epigastric pain (5) Pancreatitis: Code(s): K85.90 - Acute pancreatitis without necrosis or infection, unspecified Qualifiers: Chronicity: acute Pancreatitis type: unspecified pancreatitis type Acute pancreatitis complication: unspecified Qualified Code(s): K85.90 - Acute pancreatitis without necrosis or infection, unspecified Plan Continue Nexium every morning half an hour before breakfast. Eat small meals and more often. Follow low FODMAP diet as discussed last visit. Try to avoid beans. Increase fluid intake and activity to promote better bowel motility. Continue taking Motegrity in the morning and Dulcolax in the evening. Patient can try to take enzymes with meals to see if he will feel better. Will rule out pancreatic insufficiency. I will see her in 5 weeks, sooner on as needed basis. Patient is agreeable to plan of care and verbalizes understanding of instructions. She was given the opportunity to ask questions and all questions answered. Orders: Orders Pancreatic Elastase-1 Today R10.9 - Unspecified abdominal pain Medications: New szqdxg-viugmbwk-mhprqlv 24,000-76,000 -120,000 unit (Creon) administer with meals and/or snacks 1 cap PO QID 120 caps 2RF K58.9 - Irritable bowel syndrome without diarrhea Coding Level of Care Code Est Pt Level 4 (00512) Diagnoses Gastroparesis K31.84 Gastroesophageal reflux disease, unspecified whether esophagitis present K21.9 Esophagitis presence: esophagitis presence not specified Slow transit constipation K59.01 Constipation type: slow transit constipation Dyspepsia R10.13 Acute pancreatitis, unspecified complication status, unspecified pancreatitis type K85.90 Chronicity: acute Pancreatitis type: unspecified pancreatitis type Acute pancreatitis complication: unspecified Time Spent (min) 35 Comment 20 minutes spent with patient and additional 15 minutes spent reviewing her records
[2023-08-27 09:41] VITALS: BP 153/85; PULSE 78; O2SAT 99; BMI 36.6
== END 2023-08-27 10:01 | disposition home or self-care (01) ==
PROVIDERS: PCP Pediatrics; Visit Provider Nurse Practitioner Family
DX: K31.84 Gastroparesis (principal); K21.9 Gastro-esophageal reflux disease without esophagitis; K59.01 Slow transit constipation; R10.13 Epigastric pain; K85.90 Acute pancreatitis without necrosis or infection, unspecified
CPT/HCPCS: 99214

== ENCOUNTER → 2023-08-27 09:26 | Outpatient (BNVA) | payer MEDICAID, SELFPAY | PROVIDERS: PCP Pediatrics; Visit Provider Nurse Practitioner Family | DX: R10.13 Epigastric pain (principal); K31.84 Gastroparesis; K21.9 Gastro-esophageal reflux disease without esophagitis; K59.01 Slow transit constipation; K85.90 Acute pancreatitis without necrosis or infection, unspecified; Z90.49 Acquired absence of other specified parts of digestive tract; Z98.890 Other specified postprocedural states | CPT/HCPCS: 99212 ==

== ENCOUNTER 2023-09-03 10:12 | Outpatient (REF) | payer MEDICAID, SELFPAY ==
[2023-09-03 15:07] LABS: Anion Gap 12 (12-20); Blood Urea Nitrogen 9 mg/dL (9-16); Calcium 9.2 mg/dL (8.4-10.2); Carbon Dioxide 22 mmol/L (22-29); Chloride 106 mmol/L (96-108); Estimated Glomerular Filt Rate > 60; Glucose Random 82 mg/dL (60-115); Lipase 25 U/L (8-78); Potassium 3.6 mmol/L (3.3-5.1); Sodium 136 mmol/L (135-145)
== END 2023-09-03 10:13 | disposition home or self-care (01) ==
LOC: HO.CHCLDS 10:12
PROVIDERS: Visit Provider Pediatrics
DX: K85.00 Idiopathic acute pancreatitis without necrosis or infection (principal)
CPT/HCPCS: 36415; 80048; 83690

== ENCOUNTER 2023-09-12 13:17 | Outpatient (REF) | payer MEDICAID, SELFPAY | END 2023-09-12 13:18 | disposition home or self-care (01) | LOC: HO.MAMMO 13:17 | PROVIDERS: PCP Pediatrics; Visit Provider Pediatrics | DX: Z12.31 Encounter for screening mammogram for malignant neoplasm of breast (principal) | CPT/HCPCS: 77063; 77067 ==

== ENCOUNTER → 2023-09-12 13:30 | Outpatient (BNV) | payer MEDICAID, SELFPAY | PROVIDERS: PCP Pediatrics; Visit Provider Radiology Diagnostic Radiology | DX: Z12.31 Encounter for screening mammogram for malignant neoplasm of breast (principal) | CPT/HCPCS: 77063; 77067 ==

== ENCOUNTER 2023-10-21 13:49 | Outpatient (REF) | payer MEDICAID, SELFPAY ==
[2023-10-28 19:24] LABS: Pancreatic Elastase-1 >500 mcg/g
== END 2023-10-21 13:50 | disposition home or self-care (01) ==
LOC: HO.LNP 13:49
PROVIDERS: Visit Provider Nurse Practitioner Family
DX: R10.9 Unspecified abdominal pain (principal)
CPT/HCPCS: 82656

== ENCOUNTER 2023-11-12 09:02 | Outpatient (REF) | payer MEDICAID, SELFPAY ==
--- NOTE | ~2023-11-12 | FL_ITS ---
EXAMINATION: XR FLUOROSCOPY UPPER GI WITH AIR CLINICAL INFORMATION: Dysphagia, 48-year-old female COMPARISON: None TECHNIQUE: Fluoroscopic air contrast upper GI examination was performed utilizing standard techniques with thin and thick barium and effervescent granules. Numerous spot images were obtained. FINDINGS: Lateral cine images of the oropharynx and hypopharynx demonstrate normal swallow mechanism with normal epiglottic inversion and soft palate elevation. No tracheal penetration, glottic or subglottic aspiration identified. No nasopharyngeal reflux present. Hypopharyngeal structures appear normal without evidence of mass or diverticulum. There is mild cricopharyngeal achalasia present Dual and single contrast images of the esophagus demonstrate normal caliber, contour, and mucosal pattern. No evidence of stricture, mass, or ulcerations identified. Esophageal peristalsis was normal. A small type I hiatal hernia is present. No significant gastroesophageal reflux was seen during the course of the examination and on reflux views. Dual contrast and single contrast images of the stomach demonstrated normal contour. The gastric rugal folds have a mildly thickened appearance. No masses or ulcerations are seen. Contrast freely passed into the gastric antrum and duodenal bulb without delay. Single and air-contrast images of the duodenal bulb demonstrate no abnormality. The duodenal sweep has a normal appearance, course, and mucosal fold appearance. No malrotation. The imaged proximal jejunum has a normal fold pattern and caliber. Cholecystectomy clips are present. FLUOROSCOPY TIME: 3 minutes 13 seconds Number of Spot Images: 10 Number of Cine: 11 DOSE AREA PRODUCT: 2422 uGy-m2 (microgray-meter squared) FL/FL upper GI w air w Ba Swallow IMPRESSION: 1. Mild cricopharyngeal achalasia. 2. Small type I hiatal hernia. 3. Mildly thickened appearance of the gastric rugal folds that suggests possible gastritis. This procedure was performed by Nadeem Jones PA-C, and supervised by Dr. Baez
== END 2023-11-12 09:03 | disposition home or self-care (01) ==
LOC: HO.XRAY 09:02
PROVIDERS: PCP Pediatrics; Visit Provider Nurse Practitioner Family
DX: R13.10 Dysphagia, unspecified (principal)
CPT/HCPCS: 74246

== ENCOUNTER → 2023-11-12 09:05 | Outpatient (BNV) | payer MEDICAID, SELFPAY | PROVIDERS: PCP Pediatrics; Visit Provider Physician Assistant Surgical | DX: R13.10 Dysphagia, unspecified (principal) | CPT/HCPCS: 74246 ==

== ENCOUNTER 2023-11-19 10:01 | Outpatient (AMB) | payer MEDICAID, SELFPAY ==
--- NOTE | 2023-11-19 10:19 | A.OFFVIS_ITS ---
Vital Signs 11/19/23 10:25 Height 5 ft 6 in Weight 224 lb 13.944 oz BMI 36.3 BP 136/76 Blood Pressure Location Rt brachial Position Sitting Pulse 76 Pulse Source Pulse Oximeter Pulse Oximetry (%) 99 Oxygen Delivery Method Room Air Intake Visit Reasons: follow up barium swallow Intake Note: Millicent presents in office today for a scheduled FUV post BA FL. CC: Pt reports still experiencing chronic sx of GERD. Pt states that their sx have been slightly worse since last visit. Pt denies any new concerns or sx. Pt is comfortable speaking to MA without seismic interpreter present. Pt was offered seismic interpreter prior to rooming. Driver Education Road Instructor Required: Yes Driver Education Road Instructor Services: Driver Education Road Instructor Offered & Declined Allergies oxycodone [Percocet] Allergy (Severe, Verified 11/19/23 10:19) itch Sulfa (Sulfonamide Antibiotics) [SULFA(SULFONAMIDE ANTIBIOTICS)] Allergy (Mild, Verified 11/19/23 10:19) RASH SEAFOOD Allergy (Severe, Uncoded 08/27/23 09:34) SWELLING HPI HPI follow up barium swallow: Details: LAST VISIT Gastroparesis GERD (gastroesophageal reflux disease) Constipation Dyspepsia Pancreatitis Plan Continue Nexium every morning half an hour before breakfast. Eat small meals and more often. Follow low FODMAP diet as discussed last visit. Try to avoid beans. Increase fluid intake and activity to promote better bowel motility. Continue taking Motegrity in the morning and Dulcolax in the evening. Patient can try to take enzymes with meals to see if he will feel better. Will rule out pancreatic insufficiency. I will see her in 5 weeks, sooner on as needed basis. Patient is agreeable to plan of care and verbalizes understanding of instructions. She was given the opportunity to ask questions and all questions answered. Orders Orders Pancreatic Elastase-1 Today R10.9 Medications New hchdvx-dkigfjfr-nlowmla 24,000-76,000 -120,000 unit (Creon) administer with meals and/or snacks 1 cap PO QID 120 caps 2RF K58.9 TODAY'S VISIT Patient is here today for follow-up and to discuss lab results and barium swallow results.. Normal pancreatic elastase, possible gastritis found on barium swallow. Patient continues to have epigastric pain postprandially. Occasionally patient admits to be eating late at night. Patient is not following any particular diet, however is trying to eat healthier. History of pancreatitis in the past last lipase was normal. Patient reports occasional dyspepsia. Postprandial epigastric bloating. Patient denies any dysphagia or odynophagia. Patient states that she takes Nexium in the morning and sucralfate at bedtime. Patient denies any nausea or vomiting. [facility] Medical History Insomnia Degenerative joint disease of left hand Carpal tunnel syndrome on both sides Gastroparesis Urinary incontinence Hypertension GERD (gastroesophageal reflux disease) Panic attacks Anxiety Bipolar 1 disorder Sleep apnea Fibromyalgia Depression Surgical History H/O colonoscopy Hx of tubal ligation History of esophagogastroduodenoscopy (EGD) Hx of cholecystectomy Hx of section History of carpal tunnel surgery Family History Mother HTN (hypertension) Diabetes Father HTN (hypertension) Paternal Aunt Breast cancer Social History Household Members: Children Alcohol intake: never Patient Tobacco Use Status: Never used Tobacco Female Reproductive History Menstrual Age of Menarche: 15 Review of Systems Const Denies weight gain and Denies weight loss ENT Reports no additional complaints, Denies dysphagia and Denies odynophagia Card Reports no additional complaints Resp Reports no additional complaints GI Reports abdominal pain (Epigastric), Denies belching, Denies melena, Denies bloating, Denies change in bowel habits, Denies dysphagia, Denies excessive flatus, Reports dyspepsia, Reports heartburn, Denies diarrhea, Denies loose stools, Denies nausea, Denies odynophagia and Denies vomiting Musc Reports no additional complaints Neuro Reports no additional complaints Psych Reports no additional complaints Endo Reports no additional complaints Physical Exam Vital Signs: Last Vital Signs Pulse 76 11/19/23 10:25 BP 136/76 11/19/23 10:25 Pulse Ox 99 11/19/23 10:25 Oxygen Delivery Method Room Air 11/19/23 10:25 BMI result Body Mass Index 36.3 Const General: healthy appearing and no acute distress Nutritional Appearance: obese Orientation/consciousness: patient oriented x3 Resp Effort & Inspection: normal respiratory effort, able to speak in complete sentences, no tracheal deviation and symmetric chest movement Auscultation: clear to auscultation bilaterally Cardio Rate: regular rate GI Inspection: Yes normal to inspection, No distended and Yes obesity Palpation (GI): Soft to palpation, not firm, nontender and No hepatosplenomegaly present Auscultation: normal bowel sounds General: Yes no CVA tenderness Back/Spine/Pelvis Back: no CVA tenderness Skin General skin exam: elasticity normal, turgor normal and dry skin Neuro General: patient oriented x3 Psych Appearance: grossly normal Mental Status: mental status grossly normal Results Reviewed Results Reviewed: Laboratory Tests 08/21/23 09/03/23 10/21/23 17:28 10:14 12:25 Lipase 148 H 25 Stool Pancreat Elastase >500 BARIUM SWALLOW: IMPRESSION: 1. Mild cricopharyngeal achalasia. 2. Small type I hiatal hernia. 3. Mildly thickened appearance of the gastric rugal folds that suggests possible gastritis. Assessment & Plan Assessment & Plan (1) Gastroparesis: Code(s): K31.84 - Gastroparesis Category: Medical (2) GERD (gastroesophageal reflux disease): Code(s): K21.9 - Gastro-esophageal reflux disease without esophagitis Category: Medical Qualifiers: Esophagitis presence: esophagitis presence not specified Qualified Code(s): K21.9 - Gastro-esophageal reflux disease without esophagitis (3) Constipation: Code(s): K59.00 - Constipation, unspecified Qualifiers: Constipation type: chronic idiopathic constipation Qualified Code(s): K59.04 - Chronic idiopathic constipation (4) Dyspepsia: Code(s): R10.13 - Epigastric pain (5) Pancreatitis: Code(s): K85.90 - Acute pancreatitis without necrosis or infection, unspecified Qualifiers: Chronicity: chronic Pancreatitis type: idiopathic Qualified Code(s): K86.1 - Other chronic pancreatitis Plan Patient will continue eating small meals. Avoid fiber. Patient can continue taking Motegrity and Dulcolax to help her move her bowels daily. Increase sucralfate to 2 tablets a day in the afternoon and at bedtime. Continue Nexium half an hour before breakfast. Avoid dietary triggers and late night snacking. Staying upright for minimum 3 hours after meals discussed with patient. Encouraged weight loss. Increase fluid intake and activity to promote better bowel motility. I will see patient in 2 months, sooner on as needed basis. She is agreeable to this plan and verbalizes understanding of instructions. She was given the opportunity to ask questions and all questions answered. Thank you for allowing me to participate in her care Medications: New sucralfate 1 g PO BID 60 tabs 1RF Refilled esomeprazole magnesium (Nexium) 40 mg PO DAILY 90 caps 2RF K21.9 - Gastro- esophageal reflux disease without esophagitis Coding Level of Care Code Est Pt Level 4 (84642) Diagnoses Gastroparesis K31.84 Gastroesophageal reflux disease, unspecified whether esophagitis present K21.9 Esophagitis presence: esophagitis presence not specified Chronic idiopathic constipation K59.04 Constipation type: chronic idiopathic constipation Dyspepsia R10.13 Idiopathic chronic pancreatitis K86.1 Chronicity: chronic Pancreatitis type: idiopathic Time Spent (min) 35 Comment 20 minutes spent with patient and additional 15 minutes spent reviewing her records
[2023-11-19 10:25] VITALS: BP 136/76; PULSE 76; O2SAT 99; BMI 36.3
== END 2023-11-19 10:49 | disposition home or self-care (01) ==
PROVIDERS: PCP Pediatrics; Visit Provider Nurse Practitioner Family
DX: K31.84 Gastroparesis (principal); K21.9 Gastro-esophageal reflux disease without esophagitis; K59.04 Chronic idiopathic constipation; R10.13 Epigastric pain; K86.1 Other chronic pancreatitis
CPT/HCPCS: 99214

== ENCOUNTER → 2023-11-19 10:01 | Outpatient (BNVA) | payer MEDICAID, SELFPAY | PROVIDERS: PCP Pediatrics; Visit Provider Nurse Practitioner Family | DX: K31.84 Gastroparesis (principal); K21.9 Gastro-esophageal reflux disease without esophagitis; K59.04 Chronic idiopathic constipation; K86.1 Other chronic pancreatitis; R10.13 Epigastric pain | CPT/HCPCS: 99212 ==

== ENCOUNTER 2023-12-25 11:42 | Outpatient (REF) | payer MEDICAID, SELFPAY ==
[2023-12-26 17:03] LABS: Rubella IgG Antibody 5.36 Index
== END 2023-12-25 11:43 | disposition home or self-care (01) ==
LOC: HO.CHCLDS 11:42
PROVIDERS: Visit Provider Pediatrics
DX: Z01.84 Encounter for antibody response examination (principal)
CPT/HCPCS: 36415; 86735; 86762; 86765; 86787

== ENCOUNTER 2024-02-18 09:14 | Outpatient (AMB) | payer MEDICAID, SELFPAY ==
--- NOTE | 2024-02-18 09:17 | A.OFFVIS_ITS ---
Vital Signs 02/18/24 09:19 Height 5 ft 6 in Weight 226 lb 10.163 oz BMI 36.6 BP 148/84 H Blood Pressure Location Rt brachial Position Sitting Pulse 78 Pulse Source Pulse Oximeter Pulse Oximetry (%) 100 Oxygen Delivery Method Room Air Intake Visit Reasons: 2 month f/u Intake Note: Millicent presents in office today for a scheduled 2 mos FUV. CC; Pt had fill of nexium at their last visit. Pt reports that they have been experiencing constant reflux and difficulty with epigastric pressure. Pt reports that they are not having a therapeutic response to the nexium. Pt reports that they are taking all medications as intended. Pt also reports having dysphagia which is fairly consistent. Computer Operator Required: Yes Computer Operator Services: Computer Operator Present Computer Operator Name: [id number] Kary Information Interpreted: non-clinical & clinical Allergies oxycodone [Percocet] Allergy (Severe, Verified 02/18/24 09:18) itch Sulfa (Sulfonamide Antibiotics) [SULFA(SULFONAMIDE ANTIBIOTICS)] Allergy (Mild, Verified 02/18/24 09:18) RASH SEAFOOD Allergy (Severe, Uncoded 08/27/23 09:34) SWELLING HPI HPI 2 month f/u: Details: LAST VISIT: Gastroparesis GERD (gastroesophageal reflux disease) Constipation Dyspepsia Pancreatitis Plan Patient will continue eating small meals. Avoid fiber. Patient can continue taking Motegrity and Dulcolax to help her move her bowels daily. Increase sucralfate to 2 tablets a day in the afternoon and at bedtime. Continue Nexium half an hour before breakfast. Avoid dietary triggers and late night snacking. Staying upright for minimum 3 hours after meals discussed with patient. Encouraged weight loss. Increase fluid intake and activity to promote better bowel motility. I will see patient in 2 months, sooner on as needed basis. She is agreeable to this plan and verbalizes understanding of instructions. She was given the opportunity to ask questions and all questions answered. ? Thank you for allowing me to participate in her care Medications New sucralfate 1 g PO BID 60 tabs 1RF Refilled esomeprazole magnesium (Nexium) 40 mg PO DAILY 90 caps 2RF K21.9 TODAY'S VISIT: Patient is here today for follow-up. Patient reports that since the last time I have seen her she has continued to have epigastric pain postprandially. States that Nexium was not really working for her. Patient states that she is taking sucralfate as well. Reports epigastric pain postprandially. Reports dyspepsia with dysphagia without odynophagia. Patient states that trouble swallowing mostly solid food. No trouble swallowing liquids. Patient reports that she is moving her bowels well without any issues now that she is taking Motegrity. Patient will take Dulcolax in the evening if she is still constipated. Patient did not change her diet she continues to eat mostly Mohawk food. Not much fiber, fruits or vegetables. [facility] Medical History Insomnia Degenerative joint disease of left hand Carpal tunnel syndrome on both sides Gastroparesis Urinary incontinence Hypertension GERD (gastroesophageal reflux disease) Panic attacks Anxiety Bipolar 1 disorder Sleep apnea Fibromyalgia Depression Surgical History H/O colonoscopy Hx of tubal ligation History of esophagogastroduodenoscopy (EGD) Hx of cholecystectomy Hx of section History of carpal tunnel surgery Family History Mother HTN (hypertension) Diabetes Father HTN (hypertension) Paternal Aunt Breast cancer Social History Household Members: Children Alcohol intake: never Patient Tobacco Use Status: Never used Tobacco Female Reproductive History Menstrual Age of Menarche: 15 Review of Systems Const Denies weight gain and Denies weight loss ENT Reports no additional complaints, Reports dysphagia and Denies odynophagia Card Reports no additional complaints Resp Reports no additional complaints GI Denies abdominal pain, Denies belching, Denies melena, Denies bloating, Denies change in bowel habits, Reports constipation, Reports dysphagia, Denies excessive flatus, Denies dyspepsia, Reports heartburn, Denies diarrhea, Denies loose stools, Denies nausea, Denies odynophagia and Denies vomiting Reports no additional complaints Musc Reports no additional complaints Neuro Reports no additional complaints Psych Reports no additional complaints Endo Reports no additional complaints Physical Exam Vital Signs: Last Vital Signs Pulse 78 02/18/24 09:19 BP 148/84 H 02/18/24 09:19 Pulse Ox 100 02/18/24 09:19 Oxygen Delivery Method Room Air 02/18/24 09:19 BMI result Body Mass Index 36.6 Const General: healthy appearing and no acute distress Nutritional Appearance: obese Orientation/consciousness: patient oriented x3 Resp Effort & Inspection: normal respiratory effort, able to speak in complete sentences, no tracheal deviation and symmetric chest movement Auscultation: clear to auscultation bilaterally Cardio Rate: regular rate GI Inspection: Yes normal to inspection, No distended and Yes obesity Palpation (GI): Soft to palpation, not firm, nontender and No hepatosplenomegaly present Auscultation: normal bowel sounds General: Yes no CVA tenderness Back/Spine/Pelvis Back: no CVA tenderness Skin General skin exam: elasticity normal, turgor normal and dry skin Neuro General: patient oriented x3 Psych Appearance: grossly normal Mental Status: mental status grossly normal Assessment & Plan Assessment & Plan (1) Gastroparesis: Code(s): K31.84 - Gastroparesis Category: Medical (2) GERD (gastroesophageal reflux disease): Code(s): K21.9 - Gastro-esophageal reflux disease without esophagitis Category: Medical Qualifiers: Esophagitis presence: esophagitis presence not specified Qualified Code(s): K21.9 - Gastro-esophageal reflux disease without esophagitis (3) Constipation: Code(s): K59.00 - Constipation, unspecified Qualifiers: Constipation type: slow transit constipation Qualified Code(s): K59.01 - Slow transit constipation (4) Dyspepsia: Code(s): R10.13 - Epigastric pain (5) Pancreatitis: Code(s): K85.90 - Acute pancreatitis without necrosis or infection, unspecified Qualifiers: Acute pancreatitis complication: unspecified Plan Patient will continue Nexium and sucralfate. Will be sent for upper endoscopy. Patient does have a history of sleep apnea. History of gastroparesis will have her continue with smaller meals and more often. Avoid fiber. Continue Motegrity and Dulcolax. Patient had no trouble with anesthesia in the past. Not on any anticoagulation medication. Last endoscopy showed no Barretts no esophagitis. I will see patient after the procedure, sooner on as needed basis. She is agreeable to this plan and verbalizes understanding of instructions. She was given the opportunity to ask questions and all questions answered. Thank you for allowing me to participate in her care Coding Level of Care Code Est Pt Level 3 (23906) Diagnoses Gastroparesis K31.84 Gastroesophageal reflux disease, unspecified whether esophagitis present K21.9 Esophagitis presence: esophagitis presence not specified Slow transit constipation K59.01 Constipation type: slow transit constipation Dyspepsia R10.13 Pancreatitis K85.90 Acute pancreatitis complication: unspecified Time Spent (min) 30 Comment 20 minutes spent with patient and additional 10 minutes spent reviewing her records
[2024-02-18 09:19] VITALS: BP 148/84; PULSE 78; O2SAT 100; BMI 36.6
== END 2024-02-18 10:17 | disposition home or self-care (01) ==
PROVIDERS: PCP Pediatrics; Visit Provider Nurse Practitioner Family
DX: K31.84 Gastroparesis (principal); K21.9 Gastro-esophageal reflux disease without esophagitis; K59.01 Slow transit constipation; R10.13 Epigastric pain; K85.90 Acute pancreatitis without necrosis or infection, unspecified
CPT/HCPCS: 99213

== ENCOUNTER → 2024-02-18 09:14 | Outpatient (BNVA) | payer MEDICAID, SELFPAY | PROVIDERS: PCP Pediatrics; Visit Provider Nurse Practitioner Family | DX: K21.9 Gastro-esophageal reflux disease without esophagitis (principal); K31.84 Gastroparesis; K59.01 Slow transit constipation; R10.13 Epigastric pain; K85.90 Acute pancreatitis without necrosis or infection, unspecified | CPT/HCPCS: 99212 ==

== ENCOUNTER 2024-08-04 08:11 | Day surgery (SDC) | payer MEDICAID, SELFPAY ==
[2024-06-15 14:48] VITALS: BMI 36.6
[2024-08-02 14:25] VITALS: BMI 36.5
--- OUTSIDE RECORDS SUMMARY | 2024-08-02 17:05 | XMS_ITS | Clinical Summary ---
Author Organization [employer] Address [address] [place] [address] Care Team Providers Care Rug Measurer Name Role Phone Frannie Cedillo MD Primary Care Provider [phone] Allergies Active Allergy Reactions Criticality Noted Date Comments Oxycodone-Acetaminophen 07/10/2023 hives, itching Shellfish Allergy 07/10/2023 Sulfa Antibiotics 07/10/2023 Sulfadiazine 07/10/2023 Sulfamethoxazole 05/29/2011 Other reaction(s): rash: itching, itching develo Trimethoprim 05/29/2011 Other reaction(s): rash: itching, itching develo Medications DULoxetine (Cymbalta) [address] capsule take 1 capsule by oral route 2 times every day Active ketotifen (Zaditor) 0.025 % ophthalmic solution instill 1 drop by ophthalmic route 2 times every day into affected eye(s) 2 Active oxybutynin XL (Ditropan-XL) 10 MG 24 hr tablet take 1 tablet by oral route every day Active Sennosides 8.6 MG capsule take 1 capsule by oral route every day Active meloxicam (Mobic) 7.5 MG tablet take 1 tablet by oral route 2 times every day as needed for Pain,Moderate 4-6 On Pain Scale 2 Active azelastine (Astelin) 0.1 % nasal spray Administer 1 spray into each nostril 2 times daily. Use in each nostril as directed 30 mL 12 3 Active Blood Pressure kit 1 Units in the morning. 1 kit 3 Active Diclofenac Sodium 1 % gel Apply tid to affected area prn 100 g 3 3 Active Ketotifen Fumarate 0.035 % solution INSERT ONE DROP IN THE AFFECTED EYE(S) TWICE DAILY 10 mL 3 3 Active QUEtiapine (SEROquel) 100 MG tablet TAKE ONE TABLET EVERY NIGHT AT BEDTIME 30 tablet 1 4 Active hyoscyamine (Levsin/SL) 0.125 MG SL tablet Take 1 tablet every 4 hours as needed for bladder spasm 120 tablet 1 4 Active sodium chloride (Dyer Nasal [place]) 0.65 % nasal spray Administer 1 spray into each nostril if needed for congestion. 30 mL 4 08/23/19 25 Active Bisacodyl EC 5 MG EC tablet TAKE TWO TABLETS EVERY DAY AT BEDTIME 4 Active esomeprazole (NexIUM) [address] capsule Take 40 mg by mouth in the morning. 4 Active sucralfate (Carafate) 1 g tablet TAKE ONE TABLET in the morning, at noon, in the evening, and at bedtime 120 tablet 2 4 Active fluticasone (Flonase) 50 MCG/ACT nasal spray SPRAY 1 SPRAY INTO EACH NOSTRIL IN THE MORNING 48 mL 4 Active naproxen (Naprosyn) 500 MG tabletIndication s:Right elbow tendonitis Take 1 tablet by oral route twice daily as needed for moderate pain 30 tablet 1 4 Active zolpidem (Ambien) 5 MG tablet Take 5 mg by mouth if needed at bedtime. 4 Active ketoconazole (NIZOral) 2 % shampooIndicatio ns:Seborrheic dermatitis of scalp Apply topically 2 (two) times a week. Use shampoo 2-3 times per week. Leave shampoo on scalp for 3-5 minutes before rinsing off, making sure shampoo is behind right ear. 120 mL 1 4 Active lisinopril 20 MG tablet TAKE ONE TABLET EVERY MORNING 90 tablet 1 4 Active famotidine (Pepcid) 40 MG tablet TAKE ONE TABLET EVERY MORNING 90 tablet 1 4 Active labetalol (Normodyne) 200 MG tablet TAKE ONE TABLET TWICE DAILY IN THE MORNING AND AT BEDTIME 180 tablet 1 4 Active cholecalciferol VITAMIN D (Vitamin D-3) 50 MCG (2000 UT) capsule TAKE ONE CAPSULE EVERY MORNING 90 capsule 1 4 Active ferrous sulfate (FeroSul) 325 (65 Fe) MG tabletIndication s:Iron deficiency anemia, unspecified iron deficiency anemia type TAKE ONE TABLET TWICE DAILY IN THE MORNING AND AT BEDTIME 180 tablet 1 4 Active Tirzepatide-Weig ht Management (Zepbound) 2.5 MG/0.5ML solution auto-injectorInd ications:Benign essential hypertension,ANNETTE on CPAP,Obesity (BMI 30-39.9) Inject 0.5 mL (2.5 mg) under the skin 1 (one) time per week. 2 mL 1 5 Active Active Problems Patient Care Coordination No te Formatting of this note migh t be different from the original. [id number] program graduation Problem Noted Date Diagnosed Date Hiatal hernia 09/03/2023 COVID-19 08/23/2023 Gastroesophageal reflux disease 05/21/2023 Assessment & Plan (05/21/2023 2:26 PM EST): Exacerbation, will rx bedtime famotidine and increase dose of sulcralfate, she has upcoming appt in May with specialist, if no improvement of symptoms recommended f/up with PCP Will send testing. Bilateral hand pain 01/06/2023 Assessment & Plan (01/06/2023 4:19 PM EDT): Hx of carpal tunnel with bilateral hand pain. Will send for xray of L hand. Will refer to occupational therapy and hand surgeon at [place] for further evaluation. Atypical squamous cells of u ndetermined significance (ASCUS) on Papanicolaou smear of cervix 12/06/2022 Overview (07/23/2023): ECC neg, pap LGSIL/HPV neg. pt notified. plan for repeat pap in 1 yrColpo - neg lesions. pap and ECC obtained Candidiasis of vagina 11/05/2017 Schizoaffective disorder, bipolar type 8 Primary fibromyalgia syndrome 11/14/2016 Obstructive sleep apnea of adult 02/14/2016 Benign essential hypertension 12/07/2015 Assessment & Plan (05/21/2023 2:25 PM EST): Uncontrolled. Will increase lisinopril from 10 mg to 20 mg. Target of > 140/90 mmHg, recommended f/up with PCP Assessment & Plan (01/06/2023 4:19 PM EDT): Elevated at time of visit with a reading of 154/98 mmHg. Encouraged monitoring at home, will send BP cuff. Will start on amlodipine 5 mg. Schedule appointment with PCP and nursing appointment to recheck BP. Carpal tunnel syndrome 12/07/2015 Primary insomnia 07/03/2015 Finding of above normal blood pressure 5 Anxiety disorder 02/22/2013 Encounters Date Type Department Care Team Description 08/02/2024 Travel 06/29/2024 Telephone [facility] [address] [place] [address] Frannie Cedillo MD PA 06/25/2024 9:45 AM EST Office Visit [facility] [address] [place] [address] Frannie Cedillo MD Benign essential hypertension (Primary Dx); ANNETTE on CPAP; Obesity (BMI 30-39.9); Dietary counseling; Exercise counseling; Schizoaffective disorder, bipolar type ([facility]) 06/25/2024 Travel 05/27/2024 Travel 05/22/2024 Orders Only [facility] [address] [place] [address] ProviderSkyler MD 05/06/2024 Refill [facility] [address] [place] [address] Frannie Cedillo MD Iron deficiency anemia, unspecified iron deficiency anemia type 05/04/2024 Refill [facility] [address] [place] [address] Frannie Cedillo MD from Last 3 Months Immunizations Name Administration Dates Next Due DTaP 09/11/2012 HPV 9-Valent 02/07/2023,09/13/2022,08/09/2022 Hep B, adult 01/04/2019,10/16/2018,09/15/2018 Influenza injectable quadriv alent IIV4 with preservative 03/16/2019,02/26/2018,02/11/2017,2015,02/17/2015 Influenza injectable quadriv alent preservative free 02/07/2023,03/05/2022,03/14/2021,2019 Influenza, IIV3, injectable 03/10/2014 Influenza, Split (incl. ward fied surface antigen) 02/09/2013 Tdap 07/03/2015 Family History Medical History Relation Name Comments Glaucoma Mother Relation Name Status Comments Mother Social History Tobacco Use Types Packs/Day Years Used Date Smoking Tobacco: Never Passive Smoke Exposure: Never Smokeless Tobacco: Never Tobacco Cessation:Counseling Given: Not Answered Depression Answer Date Recorded Patient Health Questionnaire-9 Score 0 06/25/2024 Patient Health Questionnaire-9 Score 0 06/25/2024 Last PHQ-9: Questionnaire Data Not on file 0 06/25/2024 Housing Stability Answer Date Recorded What is your housing situation today? I have winstonomid brandt 08/22/[address] you li ve. Do you have problems with any of the following? None of the above 08/22/2023 Food Insecurity Answer Date Recorded Within the past 12 months, y ou worried that your food would run out before you got money to buy more: Never True 08/22/2023 Within the past 12 months,th e food you bought just didn't last and you didn't have enough money to get more: Never True Transportation Answer Date Recorded In the past 12 months, has l ack of transportation kept you from medical appts, meetings, work or from getting things needed for daily living? No 08/22/2023 Utilities Answer Date Recorded In the past 12 months, has t he electric, gas, oil or water company threatened to shut off services in your home? No 08/22/2023 Depression Answer Date Recorded Patient Health Questionnaire-2 Score 0 06/25/2024 Comments No Sex and Gender Information Value Date Recorded Sex Assigned at Female 03/25/2022 10:18 AM EDT Legal Sex Female 10:18 AM EDT Gender Identity Female 03/25/2022 10:18 AM EDT Sexual Orientation Straight 03/25/2022 10 :18 AM EDT Last Filed Vital Signs Vital Sign Reading Time Taken Comments Blood Pressure 130/86 06/25/2024 9:31 AM EST Pulse 74 06/25/2024 9:31 AM EST Temperature 36.9 ??C (98.4 ??F) 06/25/2024 9:31 AM ES T Respiratory Rate 20 06/25/2024 9:31 AM EST Oxygen Saturation 98% 06/25/2024 9:31 AM EST Inhaled Oxygen Concentration - - Weight 100 kg (220 lb 6.4 oz) 06/25/2024 9:31 AM EST Height 169 cm (5' 6.54 ) 06/25/2024 9:31 AM EST Body Mass Index 35 06/25/2024 9:31 AM EST Plan of Treatment Upcoming Encounters Date Type Department Care Team ([facility] st Contact Info) Description 08/09/2024 9:45 AM EDT Office Visit [facility] [address] [place] [address] Frannie Cedillo MD [address] [place] [address] Health Maintenance Due Date Last Done Comments CT Colonography 1977 FIT DNA/Cologuard 1977 FIT 1977 FOBT 1977 Sigmoidoscopy 1977 Family Planning (PISQ) 1992 COVID-19 Vaccine ( season) 2024 Cervical Cancer Screening 05/01/2024 HPV/Cotest 05/01/2024 04/30/2023, 11/23, 11/13/2021, Additional history exists Pap Smear 05/01/2024 04/30/2023, 11/23, 11/13/2021 SDOH Screening 08/21/2024 08/22/2023 Tobacco Screening 03/29/2025 03/29/2024 Alcohol/Substance Use Screening 06/25/2025 06/25/2024 Depression Screening 06/25/2025 06/25/2024, 06/25/19 DTaP/Tdap/Td Vaccines (3 - Td or Tdap) 07/03/2025 07/03/2015, 09/11/2012 Mammogram 10/12/2025 10/13/2023, 08/24, 09/10/2022, Additional history exists Lipid Panel 03/06/2027 03/06/2022, 06/04/2021 Zoster Vaccines (1 of 2) 09/06/2027 Colonoscopy 02/18/2033 02/18/2023 Colorectal Cancer Screening 02/18/2033 RSV Patients and Patients Aged 60 years or older (1 - 1-dose 75+ series) 2052 Hepatitis B Vaccines Completed 01/04/2019, 10/16/2018, 09/15/2018 HIV Screening Completed 10/23/2022, 02/23, 10/17/2021, Additional history exists HPV Vaccines Completed 02/07/2023, 08/25, 08/09/2022 Colposcopy Completed 05/01/2023 Hepatitis C Screening Completed 07/23/2023 , 10/23/2022, 03/06/2022, Additional history exists Influenza Vaccine Completed 07/27/2024, , 03/05/2022, Additional history exists HIB Vaccines Aged Out No longer eligi ble based on patient's age to complete this topic Hepatitis A Vaccines Aged Out No long er eligible based on patient's age to complete this topic IPV Vaccines Aged Out No longer eligi ble based on patient's age to complete this topic Meningococcal Vaccine Aged Out No gino faith eligible based on patient's age to complete this topic Pneumococcal Vaccine: Pediatrics (0 to 5 Years) and At-Risk Patients (6 to 49) Years) Aged Out No longer eligible based on patient's age to complete this topic RSV under 20 months Aged Out No longe r eligible based on patient's age to complete this topic Rotavirus Vaccines Aged Out No longer eligible based on patient's age to complete this topic Procedures Procedure Name Priority Date/Time Associated Diagnosis Comments HM MAMMOGRAPHY Routine 10/13/2023 HEPATITIS C AB W/REFL TO HCV RNA, QN, PCR Routine 07/23/2023 9:17 AM EST Lower abdominal pain COLPOSCOPY Routine 05/01/2023 PAP/HPV Routine 04/30/2023 COLONOSCOPY Routine 02/18/2023 4:41 PM EDT HIV ANTIBODY/ANTIGEN ([facility]) Routine 10/23/2022 4:12 PM EDT LIPID PANEL, STANDARD Routine 03/06/2022 8:44 AM EDT from Last 3 Months or Most Recently Relevant to Health Maintenance Results * Mammography (10/13/2023) Mammogram Normal Normal, Abnormal, BIRADS 1 , BIRADS 2 Anatomical Region Laterality Modality Other us Frannie Cedillo MD HEALTH MAINTENANCE Final Resu lt * Hepatitis C Antibody with Reflex to HCV, RNA, Quantitative, Real-Time PCR (07/23/2023 9:17 AM EST) Hepatitis C Antibody Nonreactive Nonreactive [facility] Comment:Antibodies to HCV no t detected; does not exclude early acuteHCV infection. Blood Venous blood specimen / Unknown 07/23/2023 9:17 AM EST 07/23/2023 11:08 AM EST us Arianna Tamez FLUE BLOWER LAB BLOOD ORDERABLES Final Res ult [facility] [address] [place] [address] [phone] * Colposcopy (05/01/2023) Narrative Yaritza Snow RN - 05/01/2023 WNL Colposcopy at [facility], see scanned report, co-test in 1 year us Historical Provider IN CLINIC/BEDSIDE ORDERAB LES Edited Result - Final * (ABNORMAL) Pap Smear (04/30/2023) Pathologist [facility] Pap Epithelial cell abnormality(A ) Negative for intraephithelial lesion or malignancy, Other HPV Not Detected Undetected, Indeterminate, Quantitative, Not Detected Narrative Yaritza Snow RN - 04/30/2023 Per ASCCP guidelines co-test in 1 year, see scanned report ([facility]) Historical Provider HEALTH MAINTENANCE Final Result * Hm Colonoscopy (02/18/2023 4:41 PM EDT) Historical Provider HEALTH MAINTENANCE Final Result * HIV Ab/Ag (HAWA ORTIZ) (10/23/2022 4:12 PM EDT) [facility] HIV AB/AG Nonreactive Nonreactive [facility] Comment:HIV-1 p24 Ag and/or HIV-1/HIV-2 Ab not detected.A test result that is nonreactive does not exclude thepossibility of exposure to or infection with HIV-1 and/orHIV-2. Nonreactive results in this assay for individualswith prior exposure to HIV-1 and/or HIV-2 may be due toantigen and antibody levels that are below the limit ofdetection of this assay.The [employer] HIV Ag/Ab Combo assay result andsupplemental assay results should be interpreted inconjunction with the patient's clinical presentation,history and other laboratory results. If the results areinconsistent with clinical evidence, additional testing issuggested to confirm the result. 10/23/2022 4:12 PM EDT 10/23/2022 4:12 PM EDT [facility] External Provider LAB BLO OD ORDERABLES Final Result [facility] [address] [place] [phone] * (ABNORMAL) LIPID PANEL, STANDARD (03/06/2022 8:44 AM EDT) [facility] Chol/HDLC Ratio 4.4 <5.0 (calc) [facility] Cholesterol, Total 216(H) <200 mg/dL [facility] HDL Cholesterol 49(L) > OR = 50 mg/dL [facility] LDL Cholesterol 136(H) mg/dL (calc) [facility] Comment: Reference range: <100 ?? Desirable range <100 mg/dL for primary prevention; ?? <70 mg/dL for patients with CHD or diabetic patients ?? with > or = 2 CHD risk factors. ?? LDL-C is now calculated using the Tayler ?? calculation, which is a validated novel method providing ?? better accuracy than the Friedewald equation in the ?? estimation of LDL-C. ?? Jac SS et al. IRVIN. 2013;310(19): 5528-5877 ?? (http://education.[employer]/faq/NID863) Non-HDL Cholesterol 167(H) <130 mg/dL (calc) [facility] Comment: For patients with diabetes plus 1 major ASCVD risk ?? factor, treating to a non-HDL-C goal of <100 mg/dL ?? (LDL-C of <70 mg/dL) is considered a therapeutic ?? option. Triglycerides 179(H) <150 mg/dL [facility] 03/06/2022 8:44 AM EDT us Frannie Cedillo MD LAB BLOOD ORDERABLES Final Re sult [facility] from Last 3 Months or Most Recently Relevant to Health Maintenance Insurance [employer] * Guarantor: Millicent David Account Type Relation to Patient Date of Phone Billing Address Personal/Family Self [address] [facility] [address] [place] Care Teams Rug Measurer Relationship Specialty Start Date End Date Frannie Cedillo MD [address] [place] [address] [place] [address] PCP - General Family Medicine 07/21/13
--- OUTSIDE RECORDS SUMMARY | 2024-08-02 17:05 | XMS_ITS | Encounter Summary ---
Author Organization [employer] Address [address] [facility] 7t [place] [address] Care Team Providers Care Zinc Plate Grainer Name Role Phone Frannie Cedillo MD Primary Care Provider [phone] Encounter Details Date Type Department Care Team (Late st Contact Info) Description 05/22/2024 Orders Only [facility] MED[facility] [address] [place] [address] Provider, MD Skyler Social History Tobacco Use Types Packs/Day Years Used Date Smoking Tobacco: Never Passive Smoke Exposure: Never Smokeless Tobacco: Never Depression Answer Date Recorded Patient Health Questionnaire-9 Score 13 09/03/2023 Patient Health Questionnaire-9 Score 13 09/03/2023 Last PHQ-9: Questionnaire Data Not on file 0 09/03/2023 Housing Stability Answer Date Recorded What is your housing situation today? I have [employer] 08/22/[address] you [...] Answer Date Recorded Patient Health Questionnaire-2 Score 1 09/03/2023 Comments No Sex and Gender Information Value Date Recorded Sex Assigned at Female 03/25/2022 10:18 AM EDT Legal Sex Female 10:18 AM EDT Gender Identity Female 03/25/2022 10:18 AM EDT Sexual Orientation Straight 03/25/2022 10 :18 AM EDT documented as of this encounter Plan of Treatment Upcoming Encounters Date Type Department Care Team (Late st Contact Info) Description 08/09/2024 9:45 AM EDT Office Visit [facility] [address] [place] [address] Frannie Cedillo MD [address] [place] [address] documented as of this encounter Procedures Procedure Name Priority Date/Time Associated Diagnosis Comments HM COLONOSCOPY Routine 02/18/2023 4:41 PM EDT documented in this encounter Results * Hm Colonoscopy (02/18/2023 4:41 PM EDT) us Historical Provider HEALTH MAINTENANCE Final Result documented in this encounter Visit Diagnoses Not on filedocumented in this encounter Additional Health Concerns Assessment Noted Time PHQ-9 Depression Total Score: 13 024 9:50 AM EDT documented as of this encounter Care Teams Zinc Plate Grainer Relationship Specialty Start Date End Date Frannie Cedillo MD [address] [place] [address] PCP - General Family Medicine 07/21/13 documented as of this encounter
--- OUTSIDE RECORDS SUMMARY | 2024-08-02 17:05 | XMS_ITS | Encounter Summary ---
Author Organization [employer] Address [address] [facility] 7[address] [place] [address] Care Team Providers Care Family Consultant Name Role Phone Frannie Cedillo MD Primary Care Provider [phone] Reason for Visit * Reason Onset Date Comments Med Refill Blood work order 06/16/2022 Encounter Details Date Type Department Care Team (Late st Contact Info) Description 06/16/2022 Refill [facility] [address] [place] [address] Frannie Cedillo MD [address] [place] [address] Social History Tobacco Use Types Packs/Day Years Used Date Smoking Tobacco: Never Passive Smoke Exposure: Never Smokeless Tobacco: Never Comments Unknown Sex and Gender Information Value Date Recorded Sex Assigned at Female 03/25/2022 10:18 AM EDT Legal Sex Female 10:18 AM EDT Gender Identity Female 03/25/2022 10:18 AM EDT Sexual Orientation Straight 03/25/2022 10 :18 AM EDT COVID-19 Exposure Response Date Recorded In the last 10 days, have yo u been in contact with someone who was confirmed or suspected to have Coronavirus/COVID-19? No / Unsure 06/04/2022 9:52 AM EST documented as of this encounter Miscellaneous Notes * Telephone Encounter - Wiley Vergara - 06/25/2022 2:05 PM EST Tc from pt states on last visit PCP advice pt she will order lab work, pt went to get lab work doneand order was not made. Please contact pt at [phone] documented in this encounter Plan of Treatment Upcoming Encounters Date Type Department Care Team ([facility] st Contact Info) Description 08/09/2024 9:45 AM EDT Office Visit [facility] PEDS [address] [place] [address] Frannie Cedillo MD [address] [place] [address] documented as of this encounter Visit Diagnoses Not on filedocumented in this encounter Care Teams Family Consultant Relationship Specialty Start Date End Date Frannie Cedillo MD [address] [place] [address] PCP - General Family Medicine 07/21/13 documented as of this encounter
--- OUTSIDE RECORDS SUMMARY | 2024-08-02 17:05 | XMS_ITS | Encounter Summary ---
Author Organization [employer] Address [address] [facility] [address] [place] [address] Care Team Providers Care Sap Business Objects Consultant Name Role Phone Frannie Cedillo MD Primary Care Provider [phone] Reason for Visit * Reason Onset Date Comments Immunizations 01/30/2023 HPV #3 Appointment Request 01/30/2023 Encounter Details Date Type Department Care Team ([facility] Contact Info) Description 01/30/[address] [facility] [address] [place], [place] [phone] Frannie Cedillo MD [address] [place] [address] Immunizations (HPV #3); Appointment Request Social History Tobacco Use Types Packs/Day Years Used Date Smoking Tobacco: Never Passive Smoke Exposure: Never Smokeless Tobacco: Never Comments Unknown Sex and Gender Information Value Date Recorded Sex Assigned at Female 03/25/2022 10:18 AM EDT Legal Sex Female 10:18 AM EDT Gender Identity Female 03/25/2022 10:18 AM EDT Sexual Orientation Straight 03/25/2022 10 :18 AM EDT documented as of this encounter Miscellaneous Notes * Telephone Encounter - Stacey Gonzalez RN - 01/31/2023 11:39 AM EDT T/C to patient regarding below message requesting HPV #3 vaccine. Appointment booked for 02/07/23 at 10 a.m. This message will be routed to provider for vaccine order to be sent to the pharmacy * Telephone Encounter - Marva Schroeder - 01/30/2023 11:08 AM EDT Tc from patient requesting a nurse visit for HPV #3 vaccine. Patient speaks greek documented in this encounter Plan of Treatment Upcoming Encounters Date Type Department Care Team (Late st Contact Info) Description 08/09/2024 9:45 AM EDT Office Visit [facility] [address] [place] [address] Frannie Cedillo MD [address] [place] [address] documented as of this encounter Visit Diagnoses Not on filedocumented in this encounter Care Teams Sap Business Objects Consultant Relationship Specialty Start Date End Date Frannie Cedillo MD [address] [place] [address] PCP - General Family Medicine 07/21/13 documented as of this encounter
--- OUTSIDE RECORDS SUMMARY | 2024-08-02 17:05 | XMS_ITS | Encounter Summary ---
Author Organization [facility] Address [address] [facility] [address] [place] [address] Care Team Providers Care Diabetes Nurse Name Role Phone Frannie Cedillo MD Primary Care Provider [phone] Encounter Details Date Type Department Care Team ([facility] Contact Info) Description 02/07/2023 Orders Only [facility]ED[facility] [address] [place], [place] [phone] Harshad Cardoza MD [address] [place] [address] Social History Tobacco Use Types Packs/Day Years [...] Encounters Date Type Department Care Team (Late Contact Info) Description 08/09/2024 9:45 AM EDT Office Visit [facility] [address] [place], [place] [phone] Frannie Cedillo MD [address] [place] [address] documented as of this encounter Visit Diagnoses Not on filedocumented in this encounter Care Teams Diabetes Nurse Relationship Specialty Start Date End Date Frannie Cedillo MD [address] [place] [address] PCP - General Family Medicine 07/21/13 documented as of this encounter
--- OUTSIDE RECORDS SUMMARY | 2024-08-02 17:05 | XMS_ITS | Encounter Summary ---
Author Organization [employer] Address [address] [facility] 7t [place] [address] Care Team Providers Care Rf Engineer Name Role Phone Frannie Cedillo MD Primary Care Provider [phone] Encounter Details Date Type Department Care Team (Latest Contact Info) Description 08/02/2024 Travel Social History Tobacco Use Types Packs/Day Years [...] Description 08/09/2024 9:45 AM EDT Office Visit [facility] MED & PEDS [address] [place] [address] Frannie Cedillo MD [address] [place] [address] documented as of this encounter Visit Diagnoses Not on filedocumented in this encounter Additional Health Concerns Assessment Noted Time PHQ-9 Depression Total Score: 0 06/25/19 25 9:33 AM EST documented as of this encounter Care Teams Rf Engineer Relationship Specialty Start Date End Date Frannie Ceidllo MD [address] [place] [address] PCP - General Family Medicine 07/21/13 documented as of this encounter
--- OUTSIDE RECORDS SUMMARY | 2024-08-02 17:06 | XMS_ITS | Encounter Summary ---
Author Organization [facility] Address [address] [place] [address] [address] [place] [address] Care Team Providers Care Technical Sales Representative Name Role Phone Frannie Cedillo MD Primary Care Provider [phone] Reason for Visit * Reason Comments Med Refill Encounter Details Date Type Department Care Team ([facility] Contact Info) Description 02/24/2023 Refill [facility] PEDS [address] [place], [place] [phone] Patricia Brice MD [address] [place] [address] Social History Tobacco Use Types Packs/Day Years [...] Upcoming Encounters Date Type Department Care Team ([facility] Contact Info) Description 08/09/2024 9:45 AM EDT Office Visit [facility] [address] [place], [place] [phone] Frannie Cedillo MD [address] [place] [address] documented as of this encounter Visit Diagnoses Not on filedocumented in this encounter Care Teams Technical Sales Representative Relationship Specialty Start Date End Date Frannie Cedillo MD [address] [place] [address] PCP - General Family Medicine 07/21/13 documented as of this encounter
--- NOTE | 2024-08-03 09:22 | HO.ANESPROP2 ---
Documented by User: Magali Chavez NP 08/03/24 09:23 HPI - Anesthesia Eval Consult details Narrative: 48yo F for Upper Endoscopy with with possible Dilitation PMFSH Active Problems Active Problems: All Active Problems Insomnia (Acute) Depression (Acute) Anxiety (Acute) Bipolar 1 disorder (Acute) Fibromyalgia (Acute) Sleep apnea (Acute) BMI 35.0-35.9,adult (Acute) Obesity (Acute) Degenerative joint disease of left hand (Acute) Degenerative joint disease of hand, right (Acute) De Quervain's tenosynovitis, right (Acute) Bilateral hand pain (Acute) De Quervain's tenosynovitis, bilateral (Acute) Carpal tunnel syndrome on both sides (Acute) Genital labial ulcer (Acute) Herpes genitalis (Acute) Gastroparesis (Acute) GERD (gastroesophageal reflux disease) (Acute) Overactive bladder (Acute) Dysplasia of cervix, low grade (FATUMA 1) (Acute) LGSIL on Pap smear of cervix (Acute) Well woman exam (Acute) Urinary incontinence (Acute) Hypertension (Acute) Past Medical History Medical History Insomnia Degenerative joint disease of left hand Carpal tunnel syndrome on both sides Gastroparesis Urinary incontinence Hypertension GERD (gastroesophageal reflux disease) Panic attacks Anxiety Bipolar 1 disorder Sleep apnea Fibromyalgia Depression Family History Family History Mother HTN (hypertension) Diabetes Father HTN (hypertension) Paternal Aunt Breast cancer Family history of problems with anesthesia: No Surgical History Surgical History H/O colonoscopy Hx of tubal ligation History of esophagogastroduodenoscopy (EGD) Hx of cholecystectomy Hx of section History of carpal tunnel surgery History of Problems with Anesthesia: No Social History Social History Household Members: Children Are you a primary critical care unit manager to a significant other at home: No Do you presently have visiting nurse or other home services: No Alcohol intake: never Patient Tobacco Use Status: Never used Tobacco Use of substances other than those prescribed or required for medical reasons: No Have you been hit, kicked, punched, or otherwise hurt by someone within the past year? If so, by whom?: No Are you DNR?: No Advance Directives: No Advance Directives Information Provided: Yes Meds Allergies Allergy/AdvReac Type Severity Reaction Status Date / Time oxycodone [Percocet] Allergy Severe itch Verified 02/18/24 09:18 seafood Allergy Severe Swelling Verified 06/15/24 14:46 Sulfa (Sulfonamide Allergy Mild RASH Verified 02/18/24 09:18 Antibiotics) [SULFA(SULFONAMIDE ANTIBIOTICS)] Home Medications ?Medication ?Instructions ?Recorded ?Confirmed ?Last Taken ?Type labetalol 200 mg tablet 1 tab PO BID 02/05/21 06/15/24 02/18/23 History cholecalciferol (vitamin D3) 50 50 mcg PO DAILY 10/26/21 06/15/24 Unknown History mcg (2,000 unit) capsule duloxetine 60 mg capsule,delayed 60 mg PO BID 10/26/21 06/15/24 02/18/23 History release ferrous sulfate 325 mg (65 mg 325 mg PO DAILY 06/27/22 06/15/24 02/15/23 History iron) tablet (FeroSul) pregabalin 100 mg capsule 100 mg PO BID 02/14/23 06/15/24 Unknown History prazosin 1 mg capsule 1 mg PO BEDTIME 08/12/23 06/15/24 Unknown History quetiapine 100 mg tablet 100 mg PO BEDTIME 08/12/23 06/15/24 Unknown History clotrimazole-betamethasone 1 1 appl topical BID 08/27/23 06/15/24 Unknown History %-0.05 % topical cream lisinopril 20 mg tablet 20 mg PO QAM 11/19/23 06/15/24 Unknown History ondansetron HCl 4 mg tablet 4 mg PO Q8H PRN nausea/vomiting 11/19/23 06/15/24 Unknown History simethicone 125 mg chewable tablet 125 mg PO Q6H PRN gas 11/19/23 06/15/24 Unknown History (Gas Relief Extra Strength) zolpidem 5 mg tablet 5 mg PO BEDTIME PRN Insomnia 11/19/23 06/15/24 Unknown History Exam Height,Weight and Vital Signs: Height 5 ft 6 in Weight 102.512 kg Assessment and Plan Assessment Anesthesia Assessment: Chart Reviewed Final Anesthetic Review Family History of Problems with Anesthesia: No History of Problems with Anesthesia: No Documented by User: Elyssa Luther MD 08/04/24 09:11 [facility] Past Medical History Medical History Insomnia Degenerative joint disease of left hand Carpal tunnel syndrome on both sides Gastroparesis Urinary incontinence Hypertension GERD (gastroesophageal reflux disease) Panic attacks Anxiety Bipolar 1 disorder Sleep apnea Fibromyalgia Depression Family History Family History Mother HTN (hypertension) Diabetes Father HTN (hypertension) Paternal Aunt Breast cancer Surgical History Surgical History H/O colonoscopy Hx of tubal ligation History of esophagogastroduodenoscopy (EGD) Hx of cholecystectomy Hx of section History of carpal tunnel surgery Social History Social History Household Members: Children Are you a primary critical care unit manager to a significant other at home: No Do you presently have visiting nurse or other home services: No Alcohol intake: never Patient Tobacco Use Status: Never used Tobacco Use of substances other than those prescribed or required for medical reasons: No Have you been hit, kicked, punched, or otherwise hurt by someone within the past year? If so, by whom?: No Are you DNR?: No Advance Directives: No Advance Directives Information Provided: Yes Meds Allergies Allergy/AdvReac Type Severity Reaction Status Date / Time oxycodone [Percocet] Allergy Severe itch Verified 02/18/24 09:18 seafood Allergy Severe Swelling Verified 06/15/24 14:46 Sulfa (Sulfonamide Allergy Mild RASH Verified 02/18/24 09:18 Antibiotics) [SULFA(SULFONAMIDE ANTIBIOTICS)] Home Medications ?Medication ?Instructions ?Recorded ?Confirmed ?Last Taken ?Type labetalol 200 mg tablet 1 tab PO BID 02/05/21 06/15/24 02/18/23 History cholecalciferol (vitamin D3) 50 50 mcg PO DAILY 10/26/21 06/15/24 Unknown History mcg (2,000 unit) capsule duloxetine 60 mg capsule,delayed 60 mg PO BID 10/26/21 06/15/24 02/18/23 History release ferrous sulfate 325 mg (65 mg 325 mg PO DAILY 06/27/22 06/15/24 02/15/23 History iron) tablet (FeroSul) pregabalin 100 mg capsule 100 mg PO BID 02/14/23 06/15/24 Unknown History prazosin 1 mg capsule 1 mg PO BEDTIME 08/12/23 06/15/24 Unknown History quetiapine 100 mg tablet 100 mg PO BEDTIME 08/12/23 06/15/24 Unknown History clotrimazole-betamethasone 1 1 appl topical BID 08/27/23 06/15/24 Unknown History %-0.05 % topical cream lisinopril 20 mg tablet 20 mg PO QAM 11/19/23 06/15/24 Unknown History ondansetron HCl 4 mg tablet 4 mg PO Q8H PRN nausea/vomiting 11/19/23 06/15/24 Unknown History simethicone 125 mg chewable tablet 125 mg PO Q6H PRN gas 11/19/23 06/15/24 Unknown History (Gas Relief Extra Strength) zolpidem 5 mg tablet 5 mg PO BEDTIME PRN Insomnia 11/19/23 06/15/24 Unknown History Exam Airway Mallampati Class: II TM Dist: >3cm Neck ROM: Full Heart: rrr Lungs: cta Assessment and Plan Assessment Anesthesia Assessment: Anesthesia Plan Discussed Final Anesthetic Review NPO: Yes ASA Class: III (caps top front) Final Preanesthetic Review: No Changes in Pt Med Stat, Meds/Allgs Chart Reviewed and Consent Obtained/Reviewed Patient Risk: Intermediate Procedure Risk: Intermediate Anesthetic Plan Anesthetic Plan: MAC: Disposition: Standard PACU
[2024-08-04] MEDS: Lactated Ringers 1,000 ML 100 ML IVCONT (08:57)
[2024-08-04 08:58] VITALS: BP 133/82; PULSE 86; RESP 16; TEMP 36.8; O2SAT 99; BMI 34.5
--- NOTE | 2024-08-04 09:12 | MHC.SHP ---
Pre-Procedural Eval Section A - 24 Hr Update-Section A only Date of Service: 08/04/24 Section B - Complete if H&P > 30 days Chief Complaint: Dysphagia, unspecified Relevant Family History (Specify if Yes): No Relevant Social History: None Present Medications: see Short Stay Collaborative assessment Medical History: Significant History (Insomnia Degenerative joint disease of left hand Carpal tunnel syndrome on both sides Gastroparesis Urinary incontinence Hypertension GERD (gastroesophageal reflux disease) Panic attacks Anxiety Bipolar 1 disorder Sleep apnea Fibromyalgia Depression) History of Previous Operations: Relevant previous surgery/procedure and date(s) (H/O colonoscopy Hx of tubal ligation History of esophagogastroduodenoscopy (EGD) Hx of cholecystectomy Hx of section History of carpal tunnel surgery) Allergies: Allergies Allergy/AdvReac Type Severity Reaction Status Date / Time oxycodone [Percocet] Allergy Severe itch Verified 02/18/24 09:18 seafood Allergy Severe Swelling Verified 06/15/24 14:46 Sulfa (Sulfonamide Allergy Mild RASH Verified 02/18/24 09:18 Antibiotics) [SULFA(SULFONAMIDE ANTIBIOTICS)] Review of Systems Sugical H&P ROS: Negative: Constitution, Cardiovascular, Respiratory, Neurological, Psychiatric, Hem-Onc, Allergic/Immunologic, Gastrointestinal, Genitourinary, Musculoskeletal, Integumentary, Endocrine and Eyes/Ears/Nose/Throat Exam Surgical H&P Exam: Normal: HEENT, Normal: Heart, Normal: Lungs, Normal: Extremities, Normal: Abdomen, Normal: Skin and Normal: Neurological Plan Diagnosis/Plan: Unchanged I have reviewed the history and physical and performed a pertinent physical examination on my patient. No changes have occurred unless specified. Time Spent With Patient Time: Total time managing care of this patient today ____ minutes.
--- NOTE | 2024-08-04 09:48 | W.PM.OPN ---
Operative Note Operative Note Date of Service: 08/04/24 Narrative: Procedure Description: EGD Indication: dysphagia Anesthesia: MAC FLEXIBLE TRANSORAL UPPER GASTROINTESTINAL ENDOSCOPY UPPER ENDOSCOPY Consent: Indications for the procedure and potential complications of bleeding, perforation, reaction to medications and missed diagnosis were discussed with the patient and informed consent was obtained. Instrument: Olympus GIF H 190 J mid size upper endoscope Monitoring: Vital signs and clinical assessment, continuous EKG monitoring, Pulse oximetry, Carbon Dioxide monitoring and blood pressure monitoring were done throughout the procedure. Procedure: The patient was placed in the left lateral decubitis position and pre-procedure medications were administered and a bite block was placed. The endoscope was inserted into the mouth and advanced under direct vision to the third part of duodenum. A careful inspection was made as the upper endoscope was withdrawn including a retroflexed examination of the proximal stomach; Findings and interventions are described below. Findings: Larynx:normal Esophagus: GE junction at 36 cm, diaphragm hiatus at 38 cm, possible barretts, with one short tongue of salmon pink tissue, bx taken Stomach: food noted, Duodenum: not seen Intervention: Biopsies as noted above, Impression/Findings: hiatal hernia, 2 cm possible barretts possible gastroparesis PLAN: repeat EGD with clears day before GERD precautions
[2024-08-04 09:57] VITALS: BP 110/61; PULSE 82; RESP 16; TEMP 36.4; O2SAT 99
== END 2024-08-04 10:40 | disposition home or self-care (01) ==
PROVIDERS: PCP Pediatrics; Visit Provider Internal Medicine Gastroenterology
PROC: (CPT 43239; principal; 2024-08-04 09:50)
DX: R13.10 Dysphagia, unspecified (principal); K21.9 Gastro-esophageal reflux disease without esophagitis; K44.9 Diaphragmatic hernia without obstruction or gangrene; K31.84 Gastroparesis; K85.90 Acute pancreatitis without necrosis or infection, unspecified; K59.01 Slow transit constipation; I10 Essential (primary) hypertension; M79.7 Fibromyalgia; M19.042 Primary osteoarthritis, left hand; F31.9 Bipolar disorder, unspecified; F41.9 Anxiety disorder, unspecified; G47.30 Sleep apnea, unspecified; Z79.899 Other long term (current) drug therapy; Z99.89 Dependence on other enabling machines and devices; Z88.2 Allergy status to sulfonamides; Z88.5 Allergy status to narcotic agent; Z90.49 Acquired absence of other specified parts of digestive tract
CPT/HCPCS: 43239; 88305; 88313; 88342; C1726; J2003; J2704

== ENCOUNTER → 2024-08-04 08:11 | Outpatient (BNV) | payer MEDICAID, SELFPAY | PROVIDERS: PCP Pediatrics; Visit Provider Internal Medicine Gastroenterology | DX: R13.10 Dysphagia, unspecified (principal) | CPT/HCPCS: 43239 ==

== ENCOUNTER 2024-09-15 11:19 | Outpatient (AMB) | payer MEDICAID, SELFPAY ==
[2024-09-15 11:22] VITALS: BP 138/76; PULSE 80; O2SAT 98; BMI 34.7
--- NOTE | 2024-09-15 11:22 | A.OFFVIS_ITS ---
Vital Signs 09/15/24 11:22 Height 5 ft 6 in Weight 215 lb BMI 34.7 BP 138/76 Blood Pressure Location Rt brachial Position Sitting Pulse 80 Pulse Source Pulse Oximeter Pulse Oximetry (%) 98 Oxygen Delivery Method Room Air Intake Visit Reasons: egd f/u Intake Note: ESTABLISHED PATIENT for s/p egd w/ TH Chief Complaint; C/O epigastric pain depsite current therapy. Pt denies any heartburn/reflux but does report significant epigastric pain. Pt reports taking carafate and nexium but not pepcid. No additional sx or concerns per pt. Neurology Physician Required: Yes Neurology Physician Services: Neurology Physician Present Neurology Physician Name: [facility] [place] [facility] [place] [phone] Information Interpreted: clinical only Accompanied by: Self / Same As Patient Allergies oxycodone [Percocet] Allergy (Severe, Verified 09/15/24 11:23) itch seafood Allergy (Severe, Verified 09/15/24 11:23) Swelling Sulfa (Sulfonamide Antibiotics) [SULFA(SULFONAMIDE ANTIBIOTICS)] Allergy (Mild, Verified 09/15/24 11:23) RASH HPI HPI egd f/u: Details: LAST VISIT Gastroparesis GERD (gastroesophageal reflux disease) Constipation Dyspepsia Pancreatitis Plan Patient will continue Nexium and sucralfate. Will be sent for upper endoscopy. Patient does have a history of sleep apnea. History of gastroparesis will have her continue with smaller meals and more often. Avoid fiber. Continue Motegrity and Dulcolax. Patient had no trouble with anesthesia in the past. Not on any anticoagulation medication. Last endoscopy showed no Barretts no esophagitis. I will see patient after the procedure, sooner on as needed basis. She is agreeable to this plan and verbalizes understanding of instructions. She was given the opportunity to ask questions and all questions answered. UPPER ENDOSCOPY Findings: Larynx:normal Esophagus: GE junction at 36 cm, diaphragm hiatus at 38 cm, possible barretts, with one short tongue of salmon pink tissue, bx taken Stomach: food noted, Duodenum: not seen Intervention: Biopsies as noted above, Impression/Findings: hiatal hernia, 2 cm possible barretts possible gastroparesis PLAN: repeat EGD with clears day before GERD precautions PATHOLOGY RESULTS Diagnosis GE junction, biopsy: - Cardiofundic-type mucosa with mild chronic inactive inflammation; no intestinal metaplasia seen. - Negative for H. pylori. - No squamous epithelium identified TODAY'S VISIT : Patient is here today for follow-up and to discuss upper endoscopy results. Patient reports no ill effects from anesthesia or procedure. Patient diagnosed with gastroparesis and she still had food in her stomach despite being NPO for more than 1 hours. Patient was placed on Zepbound for weight loss about 2 and half months ago. Her symptoms has not changed. She continues to have epigastric pain even though her reflux is better. Patient reports that pain is there after meals. Patient does not eat heavy or late at night. Patient reports that she tries to eat small meals. Denies any nausea or vomiting. Reports that she is moving her bowels fairly well, taking Dulcolax daily with results. Patient denies melena, hematochezia. Patient reports postprandial abdominal bloating as well. We have tried Reglan in the past, however patient had severe tremors and stop immediately. [facility] Medical History Insomnia Degenerative joint disease of left hand Carpal tunnel syndrome on both sides Gastroparesis Urinary incontinence Hypertension GERD (gastroesophageal reflux disease) Panic attacks Anxiety Bipolar 1 disorder Sleep apnea Fibromyalgia Depression Surgical History H/O colonoscopy Hx of tubal ligation History of esophagogastroduodenoscopy (EGD) Hx of cholecystectomy Hx of section History of carpal tunnel surgery Family History Mother HTN (hypertension) Diabetes Father HTN (hypertension) Paternal Aunt Breast cancer Social History Household Members: Children Are you a primary career based intervention coordinator to a significant other at home: No Do you presently have visiting nurse or other home services: No Alcohol intake: never Patient Tobacco Use Status: Never used Tobacco Female Reproductive History Menstrual Age of Menarche: 15 Review of Systems Const Denies weight gain and Denies weight loss ENT Reports no additional complaints, Reports dysphagia and Denies odynophagia Card Reports no additional complaints Resp Reports no additional complaints GI Denies abdominal pain, Denies belching, Denies melena, Denies bloating, Denies change in bowel habits, Reports constipation, Reports dysphagia, Denies excessive flatus, Denies dyspepsia, Reports heartburn, Denies diarrhea, Denies loose stools, Denies nausea, Denies odynophagia and Denies vomiting Reports no additional complaints Musc Reports no additional complaints Neuro Reports no additional complaints Psych Reports no additional complaints Endo Reports no additional complaints Physical Exam Vital Signs: Last Vital Signs Pulse 80 09/15/24 11:22 BP 138/76 09/15/24 11:22 Pulse Ox 98 09/15/24 11:22 Oxygen Delivery Method Room Air 09/15/24 11:22 BMI result Body Mass Index 34.7 Const General: healthy appearing and no acute distress Nutritional Appearance: obese Orientation/consciousness: patient oriented x3 Resp Effort & Inspection: normal respiratory effort, able to speak in complete sentences, no tracheal deviation and symmetric chest movement Auscultation: clear to auscultation bilaterally Cardio Rate: regular rate GI Inspection: Yes normal to inspection, No distended and Yes obesity Palpation (GI): Soft to palpation, not firm, nontender and No hepatosplenomegaly present Auscultation: normal bowel sounds General: Yes no CVA tenderness Back/Spine/Pelvis Back: no CVA tenderness Skin General skin exam: elasticity normal, turgor normal and dry skin Neuro General: patient oriented x3 Psych Appearance: grossly normal Mental Status: mental status grossly normal Assessment & Plan Assessment & Plan (1) Gastroparesis: Code(s): K31.84 - Gastroparesis Category: Medical (2) GERD (gastroesophageal reflux disease): Code(s): K21.9 - Gastro-esophageal reflux disease without esophagitis Category: Medical Qualifiers: Esophagitis presence: esophagitis presence not specified Qualified Code(s): K21.9 - Gastro-esophageal reflux disease without esophagitis (3) Constipation: Code(s): K59.00 - Constipation, unspecified Qualifiers: Constipation type: slow transit constipation Qualified Code(s): K59.01 - Slow transit constipation (4) Dyspepsia: Code(s): R10.13 - Epigastric pain (5) Pancreatitis: Code(s): K85.90 - Acute pancreatitis without necrosis or infection, unspecified Qualifiers: Acute pancreatitis complication: unspecified Pancreatitis type: unspecified pancreatitis type Chronicity: acute Qualified Code(s): K85.90 - Acute pancreatitis without necrosis or infection, unspecified Plan Patient will continue taking Dulcolax. Message sent to Surgical schedule to bulk procedure for patient. Patient will try to have breakfast in the morning day before procedure and then will do clear liquids. I recommend holding set found for 2 weeks before the procedure to make sure that patient has and the stomach. She was diagnosed with gastroparesis already prior to starting Zepbound and being on GLP 1 might not be a great idea for patient. However patient reports that her symptoms were the same before starting GLP 1. Discussed with her dietary choices and symptoms may improve if she eats low fiber and smaller meals avoid sparkling drinks/soda os. Gastroparesis diet given to patient in Amharic. Patient will follow-up after the procedure. Message send to Surgical scheduled to book procedure. Patient is agreeable to current plan of care and verbalizes understanding of instructions. She was given the opportunity to ask questions and all questions answered. Thank you for allowing me to participate in her care Coding Level of Care Code Est Pt Level 4 (92823) Complex EM visit Add On G2211 Diagnoses Gastroparesis K31.84 Gastroesophageal reflux disease, unspecified whether esophagitis present K21.9 Esophagitis presence: esophagitis presence not specified Slow transit constipation K59.01 Constipation type: slow transit constipation Dyspepsia R10.13 Acute pancreatitis, unspecified complication status, unspecified pancreatitis type K85.90 Acute pancreatitis complication: unspecified Pancreatitis type: unspecified pancreatitis type Chronicity: acute Time Spent (min) 35 Comment 25 minutes spent with patient and additional 10 minutes spent reviewing her records
--- OUTSIDE RECORDS SUMMARY | 2024-09-15 13:40 | XMS_ITS | Clinical Summary ---
Author Organization [employer] Address [address] [facility] [address] [place] [address] Care Team Providers Care Pet Sitting Name Role Phone Frannie Cedillo MD Primary Care Provider [phone] Allergies Active Allergy Reactions Criticality Noted Date [...] bladder spasm 120 tablet 1 4 Active Bisacodyl EC 5 MG EC tablet [...] cholecalciferol VITAMIN D (Vitamin D-3) 50 MCG (1999 UT) capsule TAKE ONE CAPSULE EVERY MORNING 90 capsule 1 4 Active ferrous sulfate (FeroSul) 325 (65 Fe) MG tabletIndication s:Iron deficiency anemia, unspecified iron deficiency anemia type TAKE ONE TABLET TWICE DAILY IN THE MORNING AND AT BEDTIME 180 tablet 1 4 Active Tirzepatide 5 MG/0.5ML solution auto-injector Inject 5 mg under the skin 1 (one) time per week. 2 mL 1 5 Active sodium chloride (Amador Nasal [place]) 0.65 % nasal spray Administer 1 spray into each nostril if needed for congestion. 30 mL 4 08/23/19 25 Active Problems Patient Care Coordination No te Formatting of this note migh t be different from the original. [id number] KRIST[employer] program graduation Problem Noted Date [...] to occupational therapy and hand surgeon at [place] for further evaluation. Atypical squamous cells of [...] Encounters Date Type Department Care Team Description 08/23/2024 Telephone [facility] [address] [place] [address] Frannie Cedillo MD 08/23/2024 Telephone [facility] [address] [place] [address] Frannie Cedillo MD Appointment Request 08/09/2024 9:45 AM EDT Office Visit [facility] [address] [place] [address] Frannie Cedillo MD Obstructive sleep apnea of adult (Primary Dx); Hiatal hernia; Benign essential hypertension; Schizoaffective disorder, bipolar type (CMS/HCC); Obesity (BMI 30-39.9) 08/09/2024 Telephone [facility] [address] [place] [address] Frannie Cedillo MD Medication Question 08/09/2024 Travel 08/06/2024 Population Health Risk Score [facility] (C[facility]) Department [address] [place] [address] Provider, Population Health Generic 08/04/2024 Orders Only GENERIC EXTERNAL DATA DEPARTMENT Provider, Generic External Data 08/02/2024 Travel 06/29/2024 Telephone [facility] [address] [place] [address] Frannie Cedillo MD PA 06/25/2024 9:45 AM EST Office Visit [facility] [address] [place] [address] Frannie Cedillo MD Benign essential hypertension (Primary Dx); ANNETTE on CPAP; Obesity (BMI 30-39.9); Dietary counseling; Exercise counseling; Schizoaffective disorder, bipolar type (CMS/HCC) 06/25/2024 Travel from Last 3 Months Immunizations Name Administration [...] Recorded What is your housing situation today? Not on denise e 08/22/[address] you li ve. Do you have problems with any of the following? None of the above 08/22/2024 Food Insecurity Answer Date Recorded Within the [...] Recorded Patient Health Questionnaire-2 Score 0 06/25/2024 Internet Access Answer Date Recorded Internet Access Q1 Yes 08/09/2024 Internet Access Q2 Not on file 08/09/2024 Comments No Sex and Gender Information Value Date Recorded Sex Assigned at Female 03/25/2022 10:18 AM EDT Legal Sex Female 10:18 AM EDT Gender Identity Female 03/25/2022 10:18 AM EDT Sexual Orientation Straight 03/25/2022 10 :18 AM EDT Last Filed Vital Signs Vital Sign Reading Time Taken Comments Blood Pressure 138/87 08/09/2024 9:43 AM EDT Pulse 74 08/09/2024 9:43 AM EDT Temperature 36.2 ??C (97.2 ??F) 08/09/2024 9:43 AM ED T Respiratory Rate 18 08/09/2024 9:43 AM EDT Oxygen Saturation 99% 08/09/2024 9:43 AM EDT Inhaled Oxygen Concentration - - Weight 96.2 kg (212 lb) 08/09/2024 9:43 AM EDT Height 169 cm (5' 6.54 ) 08/09/2024 9:43 AM EDT Body Mass Index 33.66 08/09/2024 9:43 AM EDT Plan of Treatment Upcoming Encounters Date Type Department Care Team ([facility] st Contact Info) Description 09/16/2024 9:30 AM EDT Procedure Visit [facility] [address] [place] [address] Frannie Cedillo MD [address] [place] [address] 10/08/2024 9:45 AM EDT Office Visit [facility] [address] [place] [address] Frannie Cedillo MD [address] [place] [address] Health Maintenance Due Date Last Done Comments CT Colonography 1975 FIT DNA/Cologuard 1975 FIT 1975 FOBT 1975 Sigmoidoscopy 1975 Family Planning (PISQ) 1992 COVID-19 Vaccine (2023- season) 2024 04/04/2021, 10/12/2020, 09/20/2020 Cervical Cancer Screening 05/01/2024 HPV/Cotest 05/01/2024 04/30/2023, 11/23, 11/13/2021, Additional history exists Pap Smear 05/01/2024 04/30/2023, 11/23, 11/13/2021 SDOH Screening 08/21/2024 08/22/2023 Tobacco Screening 03/29/2025 03/29/2024 Alcohol/Substance Use Screening 06/25/2025 06/25/2024 Depression Screening 06/25/2025 06/25/2024, 06/25/19 25 DTaP/Tdap/Td Vaccines (3 - Td or Tdap) [...] Procedure Name Priority Date/Time Associated Diagnosis Comments HEMATOXYLIN AND EOSIN STAIN Routine 08/04/2024 9:46 AM EDT MAMMOGRAPHY Routine 10/13/2023 HEPATITIS C AB W/REFL TO HCV RNA, QN, PCR Routine 07/23/2023 9:17 AM EST Lower abdominal pain COLPOSCOPY Routine 05/01/2023 PAP/HPV Routine 04/30/2023 COLONOSCOPY Routine 02/18/2023 4:41 PM EDT HIV ANTIBODY/ANTIGEN ([place] D[facility]) Routine 10/23/2022 4:12 PM EDT LIPID PANEL, STANDARD Routine 03/06/2022 8:44 AM EDT from Last 3 Months or Most Recently Relevant to Health Maintenance Results * Hematoxylin and Eosin Stain (08/04/2024 9:46 AM EDT) 08/04/2024 9:46 AM EDT 08/04/2024 10:07 AM EDT [facility] - 08/06/2024 8:45 AM EDT ----- ------- Name: Millicent David ?Age/Sex: 48/F ? : 1975 Unit#: [id number] ?? Attend Dr: Barbi Nazario MD ?Re08/04/24 ?Status: DEP SDC ? Location: HO.SSS ?Disch: ? ----- ------- SPEC : [id number] ? RECD: 08/04/24-1007 ? STATUS: ??SOUT ? REQ NUM: [id number] ? AVIS: 08/04/24-945 ? SUBM DR: Barbi Nazario MD ? ENTERED: ??08/04/24-1014 ?SP TYPE: Surgical ? OTHR DR: Frannie Cedillo MD ? ORDERED: ??HE Stain/3, Gross Micro L4, IHC, Special st. 2, H. pylori, AB/PAS ? Diagnosis ?? GE junction, biopsy: ?- Cardiofundic-type mucosa with mild chronic inactive inflammation; no intestinal ?? metaplasia seen. ?- Negative for H. pylori. ?- No squamous epithelium identified. ?Clinical History Pre-Op Dx: ??Dysphagia Post-Op Dx: Possible Andre's, possible gastroparesis, hiatal hernia ?Microscopic Description Microscopic sections examined. ??No metaplastic changes are seen, supported by AB/PAS stains; no Helicobacter organisms are seen, supported by H. pylori immunostain. ? Material Received ?? GE junction biopsies ? Gross Description Received in formalin labeled ?GE junction biopsies? are 2 garcia-pink irregular tissue fragments each measuring 0.2 cm, submitted in toto in a cassette labeled A. ??CEDS Special studies ordered and performed: Immunostain for H. pylori; AB/PAS stains Copies To: ?? Frannie Cedillo MD ?? [facility] ?? [address] ?? [place] [address] ?? [phone] ?? Barbi Nazario MD ?? [facility] ?? [address] ?? [place] [address] ?? [phone] ? CONTINUED ON NEXT PAGE ----- ------- Name: Millicent David ?Age/Sex: 48/F ? : 1975 Unit#: [id number] ?? Attend Dr: Barbi Nazario MD ?Re08/04/24 ?Status: DEP SDC ? Location: HO.SSS ?Disch: ? ----- ------- SPEC : [id number] ? RECD: 08/04/24-1007 ? STATUS: ??SOUT ? REQ NUM: [id number] ? AVIS: 08/04/24-945 ? SUBM DR: Barbi Nazario MD ? ENTERED: ??08/04/24-1014 ?SP TYPE: Surgical ? OTHR DR: Frannie Cedillo MD ? ORDERED: ??HE Stain/3, Gross Micro L4, IHC, Special st. 2, H. pylori, AB/PAS ? ----- ------- Signed (signature on file) Gelacio Bennett MD 08/06/24 0845 ? ----- ------- ? END OF REPORT ? us Generic External Data Provider LAB BLOOD ORDERAB LES Final Result [facility] [address] [place] [phone] * Mammography (10/13/2023) Pathologist [facility] Mammogram Normal Normal, Abnormal, BIRADS 1 , BIRADS 2 Anatomical Region Laterality Modality Other us Frannie Cedillo MD HEALTH MAINTENANCE Final Resu lt * Hepatitis C Antibody with Reflex to HCV, RNA, Quantitative, Real-Time PCR (07/23/2023 9:17 AM EST) [facility] Hepatitis C Antibody Nonreactive Nonreactive [facility] Comment:Antibodies to HCV no t detected; does not exclude early acuteHCV infection. Blood Venous blood specimen / Unknown 07/23/2023 9:17 AM EST 07/23/2023 11:08 AM EST us Arianna Tamez TRAVELING AUDITOR LAB BLOOD ORDERABLES Final Res ult [facility] [address] [place] [address] [phone] * Colposcopy (05/01/2023) Narrative Yaritza Snow RN - 05/01/2023 WNL Colposcopy at [facility], see scanned report, co-test in 1 year Historical Provider IN CLINIC/BEDSIDE ORDERAB LES Edited Result - Final * (ABNORMAL) Pap Smear (04/30/2023) Pap Epithelial cell abnormality(A ) Negative for intraephithelial lesion or malignancy, Other HPV Not Detected Undetected, Indeterminate, Quantitative, Not Detected Narrative Yaritza Snow RN - 04/30/2023 Per ASCCP guidelines co-test in 1 year, see scanned report ([facility]) Historical Provider HEALTH MAINTENANCE Final Result * Hm Colonoscopy (02/18/2023 4:41 PM EDT) Historical Provider HEALTH MAINTENANCE Final Result * HIV Ab/Ag ([facility]) (10/23/2022 4:12 PM EDT) HIV AB/AG Nonreactive Nonreactive [facility] Comment:HIV-1 p24 Ag and/or HIV-1/HIV-2 Ab not detected.A test result that is nonreactive does not exclude thepossibility of exposure to or infection with HIV-1 and/orHIV-2. Nonreactive results in this assay for individualswith prior exposure to HIV-1 and/or HIV-2 may be due toantigen and antibody levels that are below the limit ofdetection of this assay.The [employer]ident Manager HIV Ag/Ab Combo assay result andsupplemental assay results should be interpreted inconjunction with the patient's clinical presentation,history and other laboratory results. If the results areinconsistent with clinical evidence, additional testing issuggested to confirm the result. 10/23/2022 4:12 PM EDT 10/23/2022 4:12 PM EDT [facility] External Provider LAB BLO OD ORDERABLES Final Result [facility] [address] [place] [address] [phone] * (ABNORMAL) LIPID PANEL, STANDARD (03/06/2022 8:44 AM EDT) Chol/HDLC Ratio 4.4 <5.0 (calc) CONVERTED LEGACY [...] ?? LDL-C is now calculated using the Jac-Steinberg ?? calculation, which is a validated novel method providing ?? better accuracy than the Friedewald equation in the ?? estimation of LDL-C. ?? Jac SS et al. IRVIN. 2013;310(19): 1898-9619 ?? (http://education.[employer]ector[employer]/faq/BGE527) Non-HDL Cholesterol 167(H) <130 mg/dL (calc) CONVERTED LEGACY LABS Comment: For patients with diabetes plus 1 major ASCVD risk ?? factor, treating to a non-HDL-C goal of <100 mg/dL ?? (LDL-C of <70 mg/dL) is considered a therapeutic ?? option. Triglycerides 179(H) <150 mg/dL CONVE RTED LEGACY LABS 03/06/2022 8:44 AM EDT Frannie Cedillo MD LAB BLOOD ORDERABLES Final Re sult CONVERTED LEGACY LABS from Last 3 Months or Most Recently Relevant to Health Maintenance Insurance [place] [facility] Care Teams Pet Sitting Relationship Specialty Start Date End Date Frannie Cedillo MD [address] [place] [address] [place] [id number] PCP - General Family Medicine 07/21/13
--- OUTSIDE RECORDS SUMMARY | 2024-09-15 13:40 | XMS_ITS | Encounter Summary ---
Author Organization [facility] Address [address] [place] [address] [place] [address] Care Team Providers Care Tank Truck Driver Name Role Phone Frannie Cedillo MD Primary Care Provider [phone] Reason for Visit * Reason Comments Med Refill Encounter Details Date Type Department Care Team ([facility] Contact Info) Description 02/24/2023 Refill [facility] [address] [place], [place] [phone] Patricia Brice MD [address] [place] [address] Social History Tobacco Use Types Packs/Day Years [...] Upcoming Encounters Date Type Department Care Team ([facility] Contact Info) Description 09/16/2024 9:30 AM EDT Procedure Visit [facility] [address] [place] [address] Frannie Cedillo MD [address] [place] [address] 10/08/2024 9:45 AM EDT Office Visit [facility] [address] [place] [address] Frannie Cedillo MD [address] [place] [address] documented as of this encounter Visit Diagnoses Not on filedocumented in this encounter Care Teams Tank Truck Driver Relationship Specialty Start Date End Date Frannie Cedillo MD [address] [place] [address] PCP - General Family Medicine 07/21/13 documented as of this encounter
--- OUTSIDE RECORDS SUMMARY | 2024-09-15 13:40 | XMS_ITS | Encounter Summary ---
Author Organization [employer] Address [address] [facility] [address] [place] [address] Care Team Providers Care Print Finishing Worker Name Role Phone Frannie Cedillo MD Primary Care Provider [phone] Encounter Details Date Type Department Care Team ([facility] Contact Info) Description 02/07/2023 Orders Only [facility] [address] [place] [address] Harshad Cardoza MD [address] [place] [address] Social History Tobacco Use Types Packs/Day Years [...] Upcoming Encounters Date Type Department Care Team ([facility] Contact Info) Description 09/16/2024 9:30 AM EDT Procedure Visit [facility] [address] [place] [address] Frannie Cedillo MD [address] [place] [address] 10/08/2024 9:45 AM EDT Office Visit [facility] [address] [place] [address] Frannie Cedillo MD [address] [place] [address] documented as of this encounter Visit Diagnoses Not on filedocumented in this encounter Care Teams Print Finishing Worker Relationship Specialty Start Date End Date Frannie Cedillo MD [address] [place] [address] PCP - General Family Medicine 07/21/13 documented as of this encounter
--- OUTSIDE RECORDS SUMMARY | 2024-09-15 13:40 | XMS_ITS | Encounter Summary ---
Author Organization [employer] Address [address] [facility] [address] [place] [address] Care Team Providers Care Supervisor Frame Sample And Pattern Name Role Phone Frannie Cedillo MD Primary Care Provider [phone] Reason for Visit * Reason Onset Date Comments Immunizations 01/30/2023 HPV #3 Appointment Request 01/30/2023 Encounter Details Date Type Department Care Team ([facility] Contact Info) Description 01/30/2023 Telephone [facility] [address] [place], [place] [phone] Frannie Cedillo MD [address] [place] [address] Immunizations (HPV #3); Appointment Request Social History [...] visit for HPV #3 vaccine. Patient speaks maori documented in this encounter Plan of Treatment Upcoming Encounters Date Type Department Care Team (Late st Contact Info) Description 09/16/2024 9:30 AM EDT Procedure Visit [facility] [address] [place] [address] Frannie Cedillo MD [address] [place] [address] 10/08/2024 9:45 AM EDT Office Visit [facility] [address] [place] [address] Frannie Cedillo MD [address] [place] [address] documented as of this encounter Visit Diagnoses Not on filedocumented in this encounter Care Teams Supervisor Frame Sample And Pattern Relationship Specialty Start Date End Date Frannie Cedillo MD [address] [place] [address] PCP - General Family Medicine 07/21/13 documented as of this encounter
--- OUTSIDE RECORDS SUMMARY | 2024-09-15 13:40 | XMS_ITS | Encounter Summary ---
Author Organization [email or web address] Address [address] [facility] 7 [place] [address] Care Team Providers Care Marinator Name Role Phone Frannie Cedillo MD Primary Care Provider [phone] Reason for Visit * Reason Onset Date Comments Med Refill Blood work order 06/16/2022 Encounter Details Date Type Department Care Team (Late st Contact Info) Description 06/16/2022 Refill [facility] MEDICINE [address] [place] [address] Frannie Cedillo MD [address] [place] [address] Social History Tobacco Use Types Packs/Day Years [...] was not made. Please contact pt at [phone] documented in this encounter Plan of Treatment Upcoming Encounters Date Type Department Care Team ([facility] st Contact Info) Description 09/16/2024 9:30 AM EDT Procedure Visit [facility] MED & PEDS [address] [place] [address] Frannie Cedillo MD [address] [place] [address] 10/08/2024 9:45 AM EDT Office Visit [facility] MED & PEDS [address] [place] [address] Frannie Cedillo MD 505 [place] [address] documented as of this encounter Visit Diagnoses Not on filedocumented in this encounter Care Teams Marinator Relationship Specialty Start Date End Date Frannie Cedillo MD [address] [place] [address] PCP - General Family Medicine 07/21/13 documented as of this encounter
--- OUTSIDE RECORDS SUMMARY | 2024-09-15 13:40 | XMS_ITS | Encounter Summary ---
Author Organization [employer] Address [address] [facility] 7t [place] [address] Care Team Providers Care Asphalt Paving Machine Operator Name Role Phone Frannie Cedillo MD Primary Care Provider [phone] Encounter Details Date Type Department Care Team (Late st Contact Info) Description 05/22/2024 Orders Only [facility] MEDICINE [address] [place] [address] Provider, MD Skyler Social History Tobacco Use [...] Description 09/16/2024 9:30 AM EDT Procedure Visit [facility] MED & PEDS [address] [place] [address] Frannie Cedillo MD [address] [place] [address] 10/08/2024 9:45 AM EDT Office Visit [facility] MED & PEDS [address] [place] [address] Frannie Cedillo MD [address] [place] [address] documented as of this encounter Procedures Procedure [...] documented as of this encounter Care Teams Asphalt Paving Machine Operator Relationship Specialty Start Date End Date Frannie Cedillo MD [address] [place] [address] PCP - General Family Medicine 07/21/13 documented as of this encounter
== END 2024-09-15 12:12 | disposition home or self-care (01) ==
LOC: HO.HGI 11:19
PROVIDERS: PCP Pediatrics; Visit Provider Nurse Practitioner Family
DX: K31.84 Gastroparesis (principal); K21.9 Gastro-esophageal reflux disease without esophagitis; K59.01 Slow transit constipation; R10.13 Epigastric pain; K85.90 Acute pancreatitis without necrosis or infection, unspecified
CPT/HCPCS: 99214

== ENCOUNTER → 2024-09-15 11:19 | Outpatient (BNVA) | payer MEDICAID, SELFPAY | PROVIDERS: PCP Pediatrics; Visit Provider Nurse Practitioner Family | DX: K21.9 Gastro-esophageal reflux disease without esophagitis (principal); K31.84 Gastroparesis; K85.90 Acute pancreatitis without necrosis or infection, unspecified; K59.01 Slow transit constipation; R10.13 Epigastric pain | CPT/HCPCS: 99212 ==

== ENCOUNTER 2024-09-16 14:05 | Outpatient (REF) | payer MEDICAID, SELFPAY ==
[2024-09-21 15:00] LABS: HPV Genotype 16 Negative (Negative); HPV Genotype 18 Negative (Negative); HPV High Risk Negative (Negative)
== END 2024-09-16 14:06 | disposition home or self-care (01) ==
LOC: HO.HHCLNP 14:05
PROVIDERS: Visit Provider Pediatrics
DX: Z01.419 Encounter for gynecological examination (general) (routine) without abnormal findings (principal); Z11.51 Encounter for screening for human papillomavirus (HPV)
CPT/HCPCS: 87626; 88175

== ENCOUNTER 2024-10-09 08:02 | Outpatient (REF) | payer MEDICAID, SELFPAY ==
--- OUTSIDE RECORDS SUMMARY | 2024-10-09 08:04 | XMS_ITS | Encounter Summary ---
Author Organization [employer] Address [address] [facility] 7 [place] [address] Care Team Providers Care Process Automation Engineer Name Role Phone Frannie Cedillo MD Primary Care Provider Encounter Details Date Type Department Care Team ([facility] Contact Info) Description 02/07/[address] [facility] MED & PEDS [address] [place] [address] Harshad Cardoza MD [address] [place] [address] Social History Tobacco Use Types Packs/Day Years [...] Department Care Team (Late Contact Info) Description 12/28/2024 9:45 AM EDT Office Visit [facility] MED & PEDS [address] [place] [address] Frannie Cedillo MD [address] [place] [address] documented as of this encounter Visit Diagnoses Not on filedocumented in this encounter Care Teams Process Automation Engineer Relationship Specialty Start Date End Date Frannie Cedillo MD [address] [place] [address] PCP - General Family Medicine 07/21/13 documented as of this encounter
--- OUTSIDE RECORDS SUMMARY | 2024-10-09 08:04 | XMS_ITS | Encounter Summary ---
Author Organization [employer] Address [address] [facility] [address] 7t [place] [address] Care Team Providers Care Circus Supervisor Name Role Phone Frannie Cedillo MD Primary Care Provider [phone] Encounter Details Date Type Department Care Team (Late st Contact Info) Description 05/22/2024 Orders Only [facility] MEDICINE [address] [place] [address] ProviderSkyler MD Social History Tobacco Use Types Packs/Day Years [...] Care Team (Late st Contact Info) Description 12/28/2024 9:45 AM EDT Office Visit [facility] MED & PEDS 505 [place] [address] Frannie Cedillo MD 505 [place] [address] documented as of this encounter Procedures Procedure Name Priority Date/Time Associated Diagnosis Comments HM COLONOSCOPY Routine 02/18/2023 4:41 PM EDT documented in this encounter Results * Hm Colonoscopy (02/18/2023 4:41 PM EDT) Historical Provider HEALTH MAINTENANCE Final Result documented in this encounter Visit Diagnoses Not on filedocumented in this encounter Additional Health Concerns Assessment Noted Time PHQ-9 Depression Total Score: 13 024 9:50 AM EDT documented as of this encounter Care Teams Circus Supervisor Relationship Specialty Start Date End Date Frannie Cedillo MD 505 [place] [address] PCP - General Family Medicine 07/21/13 documented as of this encounter
--- OUTSIDE RECORDS SUMMARY | 2024-10-09 08:04 | XMS_ITS | Encounter Summary ---
Author Organization [employer] Address [address] [facility] 7t [place] [address] Care Team Providers Care Dental Appliance Repairer Name Role Phone Frannie Cedillo MD Primary Care Provider [phone] Reason for Visit * Reason Comments Med Refill Encounter Details Date Type Department Care Team ([facility] Contact Info) Description 02/24/2023 Refill [facility] MED & PEDS 505 [place] [address] Patricia Brice MD 505 [place] [address] Social History Tobacco Use Types Packs/Day Years [...] Description 12/28/2024 9:45 AM EDT Office Visit [facility] MED & PEDS 505 [place], [place] [phone] Frannie Cedillo MD 505 [place] [address] documented as of this encounter Visit Diagnoses Not on filedocumented in this encounter Care Teams Dental Appliance Repairer Relationship Specialty Start Date End Date Frannie Cedillo MD [address] [place] [address] PCP - General Family Medicine 07/21/13 documented as of this encounter
--- OUTSIDE RECORDS SUMMARY | 2024-10-09 08:04 | XMS_ITS | Encounter Summary ---
Author Organization [employer] Address [address] [facility] 7t [place] [address] Care Team Providers Care Manager Play Name Role Phone Frannie Cedillo MD Primary Care Provider [phone] Reason for Visit * Reason Onset Date Comments Med Refill Blood work order 06/16/2022 Encounter Details Date Type Department Care Team ([facility] st Contact Info) Description 06/16/2022 Refill [facility] MEDICINE [address] [place] [address] Frannie Cedillo MD [address] [place] [address] Social History Tobacco Use Types Packs/Day Years [...] was not made. Please contact pt at [phone] documented in this encounter Plan of Treatment Upcoming Encounters Date Type Department Care Team ([facility] st Contact Info) Description 12/28/2024 9:45 AM EDT Office Visit [facility] MED & PEDS 505 [place] [address] Frannie Cedillo MD 505 [place] [address] documented as of this encounter Visit Diagnoses Not on filedocumented in this encounter Care Teams Manager Play Relationship Specialty Start Date End Date Frannie Cedillo MD [address] [place] [address] PCP - General Family Medicine 07/21/13 documented as of this encounter
--- OUTSIDE RECORDS SUMMARY | 2024-10-09 08:04 | XMS_ITS | Encounter Summary ---
Author Organization [employer] Address [address] [facility] 7 [place] [address] Care Team Providers Care Wallpaper Consultant Name Role Phone Frannie Cedillo MD Primary Care Provider [phone] Reason for Visit * Reason Onset Date Comments Immunizations 01/30/2023 HPV #3 Appointment Request 01/30/2023 Encounter Details Date Type Department Care Team ([facility] Contact Info) Description 01/30/2023 Telephone [facility] MED & PEDS [address] [place], [place] [phone] Frannie Cedillo MD 505 [place] [address] Immunizations (HPV #3); Appointment Request Social History [...] visit for HPV #3 vaccine. Patient speaks uzbek documented in this encounter Plan of Treatment Upcoming Encounters Date Type Department Care Team (Late st Contact Info) Description 12/28/2024 9:45 AM EDT Office Visit [facility] MED & PEDS 505 [place] [address] Frannie Cedillo MD 505 [place] [address] documented as of this encounter Visit Diagnoses Not on filedocumented in this encounter Care Teams Wallpaper Consultant Relationship Specialty Start Date End Date Frannie Cedillo MD 505 [place] [address] PCP - General Family Medicine 07/21/13 documented as of this encounter
--- OUTSIDE RECORDS SUMMARY | 2024-10-09 08:04 | XMS_ITS | Clinical Summary ---
Author Organization [employer] Address [address] [facility] 7t [place] [address] Care Team Providers Care Extension Educator Name Role Phone Frannie Cedillo MD Primary Care Provider [phone] Allergies Active Allergy Reactions Criticality Noted Date [...] 2 times every day into affected eye(s) 03/05/20 22 Active oxybutynin XL (Ditropan-XL) 10 MG 24 hr tablet take 1 tablet by oral route every day Active Sennosides 8.6 MG capsule take 1 capsule by oral route every day Active meloxicam (Mobic) 7.5 MG tablet take 1 tablet by oral route 2 times every day as needed for Pain,Moderate 4-6 On Pain Scale 02/26/20 22 Active azelastine (Astelin) 0.1 % nasal spray Administer 1 spray into each nostril 2 times daily. Use in each nostril as directed 30 mL 12 10/03/19 23 Active Blood Pressure kit 1 Units in the morning. 1 kit 01/07/20 23 Active Diclofenac Sodium 1 % gel Apply tid to affected area prn 100 g 3 03/19/20 23 Active Ketotifen Fumarate 0.035 % solution INSERT ONE DROP IN THE AFFECTED EYE(S) TWICE DAILY 10 mL 3 04/01/20 23 Active QUEtiapine (SEROquel) 100 MG tablet TAKE ONE TABLET EVERY NIGHT AT BEDTIME 30 tablet 1 06/10/19 24 Active hyoscyamine (Levsin/SL) 0.125 MG SL tablet Take 1 tablet every 4 hours as needed for bladder spasm 120 tablet 1 07/23/19 24 Active Bisacodyl EC 5 MG EC tablet TAKE TWO TABLETS EVERY DAY AT BEDTIME 08/12/19 24 Active esomeprazole (NexIUM) [address] capsule Take 40 mg by mouth in the morning. 08/12/19 24 Active sucralfate (Carafate) 1 g tablet TAKE ONE TABLET in the morning, at noon, in the evening, and at bedtime 120 tablet 2 11/10/19 24 Active fluticasone (Flonase) 50 MCG/ACT nasal spray SPRAY 1 SPRAY INTO EACH NOSTRIL IN THE MORNING 48 mL 11/18/19 24 Active naproxen (Naprosyn) 500 MG tabletIndicati ons:Right elbow tendonitis Take 1 tablet by oral route twice daily as needed for moderate pain 30 tablet 1 01/30/20 24 Active zolpidem (Ambien) 5 MG tablet Take 5 mg by mouth if needed at bedtime. 03/10/20 24 Active ketoconazole (NIZOral) 2 % shampooIndicat ions:Seborrhei c dermatitis of scalp Apply topically 2 (two) times a week. Use shampoo 2-3 times per week. Leave shampoo on scalp for 3-5 minutes before rinsing off, making sure shampoo is behind right ear. 120 mL 1 03/29/20 24 Active labetalol (Normodyne) 200 MG tablet TAKE ONE TABLET TWICE DAILY IN THE MORNING AND AT BEDTIME 180 tablet 1 05/07/20 24 Active cholecalcifero l VITAMIN D (Vitamin D-3) 50 MCG (1999 UT) capsule TAKE ONE CAPSULE EVERY MORNING 90 capsule 1 05/07/20 24 Active ferrous sulfate (FeroSul) 325 (65 Fe) MG tabletIndicati ons:Iron deficiency anemia, unspecified iron deficiency anemia type TAKE ONE TABLET TWICE DAILY IN THE MORNING AND AT BEDTIME 180 tablet 1 05/07/20 24 Active Tirzepatide 7.5 MG/0.5ML solution auto-injector Inject 7.5 mg under the skin 1 (one) time per week. 2 mL 1 09/17/19 25 Active famotidine (Pepcid) 40 MG tablet TAKE ONE TABLET EVERY MORNING 90 tablet 1 10/09/19 25 Active lisinopril 20 MG tablet TAKE ONE TABLET EVERY MORNING 90 tablet 1 10/09/19 25 Active lisinopril 20 MG tablet TAKE ONE TABLET EVERY MORNING 90 tablet 1 05/05/20 24 025 Discontinued famotidine (Pepcid) 40 MG tablet TAKE ONE TABLET EVERY MORNING 90 tablet 1 05/05/20 24 025 Discontinued Tirzepatide 5 MG/0.5ML solution auto-injector Inject 5 mg under the skin 1 (one) time per week. 2 mL 1 08/10/19 25 025 Discontinued(Th erapy completed) Active Problems Patient Care Coordination No te Formatting of this note migh t be different from the original. [id number] KRISTAL [employer] program graduation Problem Noted Date [...] to occupational therapy and hand surgeon at [place] for further evaluation. Atypical squamous cells of [...] Encounters Date Type Department Care Team Description 10/07/2024 Refill [facility] MED & PEDS 505 [facility] [place] [address] Frannie Cedillo MD 09/16/2024 9:30 AM EDT Procedure Visit [facility] MED & PEDS 505 [facility] [place] [address] Frannie Cedillo MD Encounter for gynecological examination with Papanicolaou smear of cervix (Primary Dx) 09/16/2024 Orders Only [facility] MED & PEDS 505 [facility] [place] [address] Frannie Cedillo MD 09/16/2024 Travel 08/23/2024 Telephone [facility] MED & PED[facility] [address] [facility] [place] [address] Frannie Cedillo MD 08/23/2024 Telephone [facility] MED & PEDS 505 [place] [address] Frannie Cedillo MD Appointment Request 08/09/2024 9:45 AM EDT Office Visit [facility] MED & PEDS 505 [place] [address] Frannie Cedillo MD Obstructive sleep apnea of adult (Primary Dx); Hiatal hernia; Benign essential hypertension; Schizoaffective disorder, bipolar type (CMS/HCC); Obesity (BMI 30-39.9) 08/09/2024 Telephone [facility] MEDICINE [address] [place] [address] Frannie Cedillo MD Medication Question 08/09/2024 Travel 08/06/2024 Population Health Risk Score [facility] (C3) Department [address] [place] [phone] Provider, Population Health Generic 08/04/2024 Orders Only GENERIC EXTERNAL DATA DEPARTMENT Provider, Generic External Data 08/02/2024 Travel from Last 3 Months Immunizations Immunization Administration Dates Next Due DTaP 09/11/2012 HPV [...] your housing situation today? I have [place] 09/16/[address] you li ve. Do you have problems with any of the following? None of the above 09/16/2024 Food Insecurity Answer Date Recorded Within the [...] Sign Reading Time Taken Comments Blood Pressure 120/70 09/16/2024 9:30 AM EDT Pulse 72 09/16/2024 9:30 AM EDT Temperature 37.1 ??C (98.8 ??F) 09/16/2024 9:30 AM ED T Respiratory Rate 20 09/16/2024 9:30 AM EDT Oxygen Saturation 99% 08/09/2024 9:43 AM EDT Inhaled Oxygen Concentration - - Weight 94.3 kg (208 lb) 09/16/2024 9:30 AM EDT Height 168.9 cm (5' 6.5 ) 09/16/2024 9:30 AM EDT Body Mass Index 33.07 09/16/2024 9:30 AM EDT Plan of Treatment Upcoming Encounters Date Type Department Care Team ([facility] st Contact Info) Description 12/28/2024 9:45 AM EDT Office Visit [facility] MED & PEDS 505 [place] [address] Frannie Cedillo MD [address] [place] [address] Health Maintenance Due Date Last Done Comments CT Colonography 1975 FIT DNA/Cologuard 1975 FIT 1975 FOBT 1975 Sigmoidoscopy 1975 Family Planning (PISQ) 1992 COVID-19 Vaccine ( season) 2024 04/04/2021, 10/12/2020, 09/20/2020 Tobacco Screening 03/29/2025 03/29/2024 Alcohol/Substance Use Screening 06/25/2025 06/25/2024 Depression Screening 06/25/2025 06/25/2024, 06/25/19 DTaP/Tdap/Td Vaccines (3 - Td or Tdap) 07/03/2025 07/03/2015, 09/11/2012 Cervical Cancer Screening 09/16/2025 HPV/Cotest 09/16/2025 09/16/2024, 12/0 10/2022, 12/06/2022, Additional history exists Pap Smear 09/16/2025 09/16/2024, 12/0 10/2022, 12/06/2022, Additional history exists SDOH Screening 09/16/2025 09/16/2024 Mammogram 10/12/2025 10/13/2023, 08/24, 09/10/2022, Additional history [...] patient's age to complete this topic Meningococcal B Vaccine Aged Out No l onger eligible based on patient's age to complete [...] Procedure Name Priority Date/Time Associated Diagnosis Comments PAP SMEAR Routine 09/16/2024 10:00 AM EDT Encounter for gynecological examination with Papanicolaou smear of cervix HPV DNA, LOW/HIGH RISK Routine 09/16/2024 10:00 AM EDT HEMATOXYLIN AND EOSIN STAIN Routine 08/04/2024 9:46 AM EDT MAMMOGRAPHY Routine 10/13/2023 HEPATITIS C AB W/REFL TO HCV RNA, QN, PCR Routine 07/23/2023 9:17 AM EST Lower abdominal pain COLPOSCOPY Routine 05/01/2023 COLONOSCOPY Routine 02/18/2023 4:41 PM EDT HIV ANTIBODY/ANTIGEN ([place] DPH) Routine 10/23/2022 4:12 PM EDT LIPID PANEL, STANDARD Routine 03/06/2022 8:44 AM EDT from Last 3 Months or Most Recently Relevant to Health Maintenance Results * HPV DNA, Low/High Risk (09/16/2024 10:00 AM EDT) HPV High Risk Negative Negative [facility] HPV Genotype 16 Negative Negative [facility] HPV Genotype 18 Negative Negative [facility] Comment:HPV testing performe d at [facility] (CLIA#[id number]), [address] [place] [id number].Testing for HPV was performed using the [employer]LLAND 6800system. The presence of HPV in the female genital tract isassociated with a number of diseases, including cervicalcarcinoma. The HPV DNA high risk pool tests for HPV 31, 33,35, 39, 45, 51, 52, 56, 58, 59, 66 and 68. The testing forHPV 16 and 18 genotypes has also been performed. A positiveresult indicates detection of nucleic acid sequences fromone or more subtypes, whereas a negative result indicatessuch sequences were not detected. 09/16/2024 10:0 0 AM EDT 09/17/2024 9:20 AM EDT us Frannie Cedillo MD LAB BLOOD ORDERABLES Final Re sult [facility] [address] [place] [phone] * Pap Smear (09/16/2024 10:00 AM EDT) Swab Cervical swab / Unknown 09/16/2024 10:00 AM EDT 09/17/2024 9:20 AM EDT Narrative [facility] - 09/21/2024 10:53 AM EDT ----- ------- Name: Millicent David ?Age/Sex: 49/F ? : 1975 Unit#: [id number] ?? Attend Dr: Frannie Cedillo MD ?Re09/16/24 ?Status: DEP REF ? Location: HO.HHCLNP ? Disch: ? ----- ------- SPEC : [id number] ? RECD: 09/17/24 ? STATUS: ??SOUT ? REQ NUM: [id number] ? AVIS: 09/16/24-999 ? SUBM DR: Frannie Cedillo MD ? ENTERED: ??09/17/24 ?SP TYPE: Pap Smr ?OTHR : ? ORDERED: ??Pap Smear ? Interpretation ?? Satisfactory for evaluation. ?? Negative for intraepithelial lesion or malignancy. ?? No endocervical cells seen. ?? Coccobacilli consistent with shift in vaginal jb. ? HPV High Risk: ??Negative ? HPV Genotyping 16: ??Negative ?? HPV Genotyping 18: ??Negative ?Clinical Information LMP: 08/22/2024 Previous PAP test: 05/02/2023, colposcopy negative ? Material Received ?? ThinPrep-Cervical ----- ------- Signed (signature on file) BROOKLYNN Nuñez (ASCP) 09/21/24 1053 ? ----- ------- ? END OF REPORT ? us Frannie Cedillo MD LAB CYTOLOGY ORDERABLES Final Result [facility] [address] [place] [address] [phone] * Hematoxylin and Eosin Stain (08/04/2024 9:46 AM EDT) 08/04/2024 9:46 AM EDT 08/04/2024 10:07 AM EDT [facility] - 08/06/2024 8:45 AM EDT ----- ------- Name: Millicent David ?Age/Sex: 48/F ? : 1975 Unit#: [id number] ?? Attend Dr: Barbi Nazario MD ?Re08/04/24 ?Status: DEP SDC ? Location: HO.SSS ?Disch: ? ----- ------- SPEC : [id number] ? RECD: 08/04/24-1007 ? STATUS: ??SOUT ? REQ NUM: [id number] ? AVIS: 08/04/24-945 ? SUBM DR: Barbi Nazario MD ? ENTERED: ??08/04/24-4 ?SP TYPE: Surgical ? OTHR DR: Frannie [...] Copies To: ?? Frannie Cedillo MD ?? [facility] ?? [address] ?? [place] [address] ?? [phone] ?? Barbi Nazario MD ?? [facility] ?? [address] ?? [place] [address] ?? [phone] ? CONTINUED ON NEXT PAGE ----- ------- Name: Millicent David ?Age/Sex: 48/F ? : 1975 Unit#: [id number] ?? Attend Dr: Barbi Nazario MD ?Re08/04/24 ?Status: DEP SDC ? Location: HO.SSS ?Disch: ? ----- ------- SPEC : [id number] ? RECD: 08/04/24-1007 ? STATUS: ??SOUT ? REQ NUM: [id number] ? AVIS: 08/04/24-945 ? SUBM DR: Barbi [...] Provider LAB BLOOD ORDERAB LES Final Result [facility] [address] [place] [phone] * Mammography (10/13/2023) Pathologist [facility] Mammogram Normal Normal, Abnormal, BIRADS 1 , BIRADS 2 Anatomical Region Laterality Modality Other us Frannie Cedillo MD HEALTH MAINTENANCE Final Resu lt * Hepatitis C Antibody with Reflex to HCV, RNA, Quantitative, Real-Time PCR (07/23/2023 9:17 AM EST) [facility] Hepatitis C Antibody Nonreactive Nonreactive [facility] Comment:Antibodies to HCV no t detected; does not exclude early acuteHCV infection. Blood Venous blood specimen / Unknown 07/23/2023 9:17 AM EST 07/23/2023 11:08 AM EST Result [facility] Ariannahayley Tamez JAVA XML DEVELOPER LAB BLOOD ORDERABLES Final Res ult [facility] [address] [place] [address] [phone] * Colposcopy (05/01/2023) Narrative Yaritza Snow RN - 05/01/2023 WNL Colposcopy at [facility], see scanned report, co-test in 1 year Historical Provider IN CLINIC/BEDSIDE ORDERAB LES Edited Result - Final * Hm Colonoscopy (02/18/2023 4:41 PM EDT) Historical Provider HEALTH MAINTENANCE Final Result * HIV Ab/Ag ([place]) (10/23/2022 4:12 PM EDT) HIV AB/AG Nonreactive Nonreactive [facility] Comment:HIV-1 p24 Ag and/or HIV-1/HIV-2 Ab not detected.A test result that is nonreactive does not exclude thepossibility of exposure to or infection with HIV-1 and/orHIV-2. Nonreactive results in this assay for individualswith prior exposure to HIV-1 and/or HIV-2 may be due toantigen and antibody levels that are below the limit ofdetection of this assay.The [employer] Loader HIV Ag/Ab Combo assay result andsupplemental assay results should be interpreted inconjunction with the patient's clinical presentation,history and other laboratory results. If the results areinconsistent with clinical evidence, additional testing issuggested to confirm the result. 10/23/2022 4:12 PM EDT 10/23/2022 4:12 PM EDT [facility] External Provider LAB BLO OD ORDERABLES Final Result [facility] [address] [place] [address] [phone] * (ABNORMAL) LIPID PANEL, STANDARD (03/06/2022 [...] the ?? estimation of LDL-C. ?? Jac GALVEZ et al. IRVIN. 2013;310(19): 7929-3509 ?? (http://education.[employer].Tray/faq/PYC904) Non-HDL Cholesterol 167(H) <130 mg/dL (calc) CONVERTED [...] Most Recently Relevant to Health Maintenance Insurance [facility] C[facility] Care Teams Extension Educator Relationship Specialty Start Date End Date Frannie Cedillo MD [address] [place] [address] [place] [address] PCP - General Family Medicine 07/21/13
--- OUTSIDE RECORDS SUMMARY | 2024-10-09 08:04 | XMS_ITS | Encounter Summary ---
Author Organization [employer] Address [address] [facility] [address] [place] [address] Care Team Providers Care Neon Installer Name Role Phone Frannie Cedillo MD Primary Care Provider [phone] Reason for Visit * Reason Comments Med Refill Encounter Details Date Type Department Care Team ([facility] Contact Info) Description 10/07/2024 Refill [facility] PEDS [address] [place], [place] [id number] Frannie Cedillo MD [address] [place] [address] Social History Tobacco Use Types Packs/Day Years Used Date Smoking Tobacco: Never Passive Smoke Exposure: Never Smokeless Tobacco: Never Depression Answer Date Recorded Patient Health Questionnaire-9 Score 0 06/25/2024 Patient Health Questionnaire-9 Score 0 06/25/2024 Last PHQ-9: Questionnaire Data Not on file 0 06/25/2024 Housing Stability Answer Date Recorded What is your housing situation today? I have [employer] 09/16/[address] you li [...] Upcoming Encounters Date Type Department Care Team ([facility] st Contact Info) Description 12/28/2024 9:45 AM EDT Office Visit [facility] PEDS [address] [place] [address] Frannie Cedillo MD [address] [place] [address] documented as of this encounter Visit Diagnoses Not on filedocumented in this encounter Additional Health Concerns Assessment Noted Time PHQ-9 Depression Total Score: 0 06/25/19 25 9:33 AM EST documented as of this encounter Care Teams Neon Installer Relationship Specialty Start Date End Date Frannie Cedillo MD [address] [place] [address] PCP - General Family Medicine 07/21/13 documented as of this encounter
== END 2024-10-09 08:03 | disposition home or self-care (01) ==
LOC: HO.MAMMO 08:02
PROVIDERS: PCP Pediatrics; Visit Provider Pediatrics
DX: Z12.31 Encounter for screening mammogram for malignant neoplasm of breast (principal)
CPT/HCPCS: 77063; 77067

== ENCOUNTER → 2024-10-09 08:15 | Outpatient (BNV) | payer MEDICAID, SELFPAY | PROVIDERS: PCP Pediatrics; Visit Provider Internal Medicine | DX: Z12.31 Encounter for screening mammogram for malignant neoplasm of breast (principal) | CPT/HCPCS: 77063; 77067 ==

== ENCOUNTER 2024-12-07 14:46 | Outpatient (REF) | payer MEDICAID, SELFPAY ==
--- OUTSIDE RECORDS SUMMARY | 2024-12-07 16:08 | XMS_ITS | Encounter Summary ---
Author Organization [employer] Address [address] [facility] [place] [address] Care Team Providers Care Workday Director Name Role Phone Frannie Cedillo MD Primary Care Provider [phone] Encounter Details Date Type Department Care Team (Late st Contact Info) Description 05/22/2024 Orders Only [facility] MEDICINE [address] [place] [address] Provider, MD Skyler Social History Tobacco Use [...] Description 12/28/2024 9:45 AM EDT Office Visit [facility] MED & PEDS [address] [place] [address] Frannie Cedillo MD [address] [place] [address] documented as of this encounter Procedures Procedure [...] documented as of this encounter Care Teams Workday Director Relationship Specialty Start Date End Date Frannie Cedillo MD [address] [place] [address] PCP - General Family Medicine 07/21/13 documented as of this encounter
[2024-12-10 05:38] LABS: TS Negative Control Passed; TS Panel A 0; TS Panel B 1; TS Positive Control Passed; TSpotTB Negative (Negative)
== END 2024-12-07 14:47 | disposition home or self-care (01) ==
LOC: HO.CHCLDS 14:46
PROVIDERS: Visit Provider Pediatrics
DX: Z11.1 Encounter for screening for respiratory tuberculosis (principal)
CPT/HCPCS: 36415; 86481

== ENCOUNTER 2025-01-25 06:45 | Day surgery (SDC) | payer MEDICAID, SELFPAY ==
--- OUTSIDE RECORDS SUMMARY | 2025-01-04 14:27 | XMS_ITS | Encounter Summary ---
Author Organization [employer] Address [address] [place] [address] Care Team Providers Care Cuprous Chloride Helper Name Role Phone Frannie Cedillo MD Primary Care Provider [phone] Encounter Details Date Type Department Care Team (Late st Contact Info) Description 05/22/2024 Orders Only [facility] MEDICINE [address] [place] [address] Provider, MD Skyler Social History Tobacco Use [...] as of this encounter Plan of Treatment Not on file documented as of this encounter Procedures Procedure [...] documented as of this encounter Care Teams Cuprous Chloride Helper Relationship Specialty Start Date End Date Frannie Cedillo MD [address] [place] [address] PCP - General Family Medicine 07/21/13 documented as of this encounter
[2025-01-20 14:31] VITALS: BMI 34.7
--- NOTE | 2025-01-21 11:28 | HO.ANESPROP2 ---
Documented by User: Ina Mccracken NP 01/21/25 11:28 HPI - Anesthesia Eval Consult details Narrative: 49 yr old female for upper endoscopy s/p EGD with TIVA 07/2024 [facility] Active Problems Active Problems: All Active Problems (Updated 08/23/23 @ 00:01 by Enrique Gould) BMI 35.0-35.9,adult (Acute) Obesity (Acute) Degenerative joint disease of hand, right (Acute) De Quervain's tenosynovitis, right (Acute) Bilateral hand pain (Acute) De Quervain's tenosynovitis, bilateral (Acute) Genital labial ulcer (Acute) Herpes genitalis (Acute) Overactive bladder (Acute) Dysplasia of cervix, low grade (FATUMA 1) (Acute) LGSIL on Pap smear of cervix (Acute) Well woman exam (Acute) Insomnia (Acute) Depression (Acute) Anxiety (Acute) Bipolar 1 disorder (Acute) Fibromyalgia (Acute) Sleep apnea (Acute) Degenerative joint disease of left hand (Acute) Carpal tunnel syndrome on both sides (Acute) Gastroparesis (Acute) GERD (gastroesophageal reflux disease) (Acute) Urinary incontinence (Acute) Hypertension (Acute) Past Medical History Medical History Insomnia Degenerative joint disease of left hand Carpal tunnel syndrome on both sides Gastroparesis Urinary incontinence Hypertension GERD (gastroesophageal reflux disease) Panic attacks Anxiety Bipolar 1 disorder Sleep apnea Fibromyalgia Depression Family History Family History Mother HTN (hypertension) Diabetes Father HTN (hypertension) Paternal Aunt Breast cancer Family history of problems with anesthesia: No Surgical History Surgical History (Updated 01/20/25 @ 14:29 by Aisha Montgomery RN) H/O colonoscopy Hx of tubal ligation History of esophagogastroduodenoscopy (EGD) Hx of cholecystectomy Hx of section History of carpal tunnel surgery History of Problems with Anesthesia: No Social History Social History Household Members: Children Are you a primary child caregiver to a significant other at home: No Do you presently have visiting nurse or other home services: No Alcohol intake: never Patient Tobacco Use Status: Never used Tobacco Use of substances other than those prescribed or required for medical reasons: No Are you DNR?: No Advance Directives: No Advance Directives Information Provided: Yes Patient : No Meds Allergies Allergy/AdvReac Type Severity Reaction Status Date / Time oxycodone (Percocet) Allergy Severe itch Verified 09/15/24 11:23 seafood Allergy Severe Swelling Verified 09/15/24 11:23 Sulfa (Sulfonamide Allergy Mild RASH Verified 09/15/24 11:23 Antibiotics) (SULFA(SULFONAMIDE ANTIBIOTICS)) Home Medications ?Medication ?Instructions ?Recorded ?Confirmed ?Last Taken ?Type labetalol 200 mg tablet 1 tab PO BID 02/05/21 01/20/25 02/18/23 History cholecalciferol (vitamin D3) 50 50 mcg PO DAILY 10/26/21 01/20/25 Unknown History mcg (2,000 unit) capsule duloxetine 60 mg capsule,delayed 60 mg PO BID 10/26/21 01/20/25 02/18/23 History release ferrous sulfate 325 mg (65 mg 325 mg PO DAILY 06/27/22 01/20/25 02/15/23 History iron) tablet (FeroSul) pregabalin 100 mg capsule 100 mg PO BID 02/14/23 01/20/25 Unknown History prazosin 1 mg capsule 1 mg PO BEDTIME 08/12/23 01/20/25 Unknown History quetiapine 100 mg tablet 100 mg PO BEDTIME 08/12/23 01/20/25 Unknown History clotrimazole-betamethasone 1 1 appl topical BID 08/27/23 01/20/25 Unknown History %-0.05 % topical cream lisinopril 20 mg tablet 20 mg PO QAM 11/19/23 01/20/25 Unknown History ondansetron HCl 4 mg tablet 4 mg PO Q8H PRN nausea/vomiting 11/19/23 01/20/25 Unknown History simethicone 125 mg chewable tablet 125 mg PO Q6H PRN gas 11/19/23 01/20/25 Unknown History (Gas Relief Extra Strength) zolpidem 5 mg tablet 5 mg PO BEDTIME PRN Insomnia 11/19/23 01/20/25 Unknown History ketoconazole 2 % shampoo 1 appl topical 2XW 09/15/24 01/20/25 Unknown History lidocaine-prilocaine 2.5 %-2.5 % 1 appl topical DAILY 09/15/24 01/20/25 Unknown History topical cream lurasidone 120 mg tablet 120 mg PO QAM 09/15/24 01/20/25 Unknown History tirzepatide (weight loss) 5 mg/0.5 5 mg subcut QWEEK 09/15/24 01/20/25 Unknown History mL subcutaneous pen injector (Zepbound) Exam Height,Weight and Vital Signs: Height 5 ft 6 in Weight 97.522 kg Assessment and Plan Final Anesthetic Review Family History of Problems with Anesthesia: No History of Problems with Anesthesia: No Documented by User: Selvin Morillo MD 01/25/25 07:37 PMF Past Medical History Medical History Insomnia Degenerative joint disease of left hand Carpal tunnel syndrome on both sides Gastroparesis Urinary incontinence Hypertension GERD (gastroesophageal reflux disease) Panic attacks Anxiety Bipolar 1 disorder Sleep apnea Fibromyalgia Depression Patient : No Family History Family History Mother HTN (hypertension) Diabetes Father HTN (hypertension) Paternal Aunt Breast cancer Surgical History Surgical History (Updated 01/20/25 @ 14:29 by Aisha Montgomery RN) H/O colonoscopy Hx of tubal ligation History of esophagogastroduodenoscopy (EGD) Hx of cholecystectomy Hx of section History of carpal tunnel surgery Social History Social History Household Members: Children Are you a primary child caregiver to a significant other at home: No Do you presently have visiting nurse or other home services: No Alcohol intake: never Patient Tobacco Use Status: Never used Tobacco Use of substances other than those prescribed or required for medical reasons: No Are you DNR?: No Advance Directives: No Advance Directives Information Provided: Yes Patient : No Meds Allergies Allergy/AdvReac Type Severity Reaction Status Date / Time oxycodone (Percocet) Allergy Severe itch Verified 09/15/24 11:23 seafood Allergy Severe Swelling Verified 09/15/24 11:23 Sulfa (Sulfonamide Allergy Mild RASH Verified 09/15/24 11:23 Antibiotics) (SULFA(SULFONAMIDE ANTIBIOTICS)) Home Medications ?Medication ?Instructions ?Recorded ?Confirmed ?Last Taken ?Type labetalol 200 mg tablet 1 tab PO BID 02/05/21 01/20/25 02/18/23 History cholecalciferol (vitamin D3) 50 50 mcg PO DAILY 10/26/21 01/20/25 Unknown History mcg (2,000 unit) capsule duloxetine 60 mg capsule,delayed 60 mg PO BID 10/26/21 01/20/25 02/18/23 History release ferrous sulfate 325 mg (65 mg 325 mg PO DAILY 06/27/22 01/20/25 02/15/23 History iron) tablet (FeroSul) pregabalin 100 mg capsule 100 mg PO BID 02/14/23 01/20/25 Unknown History prazosin 1 mg capsule 1 mg PO BEDTIME 08/12/23 01/20/25 Unknown History quetiapine 100 mg tablet 100 mg PO BEDTIME 08/12/23 01/20/25 Unknown History clotrimazole-betamethasone 1 1 appl topical BID 08/27/23 01/20/25 Unknown History %-0.05 % topical cream lisinopril 20 mg tablet 20 mg PO QAM 11/19/23 01/20/25 Unknown History ondansetron HCl 4 mg tablet 4 mg PO Q8H PRN nausea/vomiting 11/19/23 01/20/25 Unknown History simethicone 125 mg chewable tablet 125 mg PO Q6H PRN gas 11/19/23 01/20/25 Unknown History (Gas Relief Extra Strength) zolpidem 5 mg tablet 5 mg PO BEDTIME PRN Insomnia 11/19/23 01/20/25 Unknown History ketoconazole 2 % shampoo 1 appl topical 2XW 09/15/24 01/20/25 Unknown History lidocaine-prilocaine 2.5 %-2.5 % 1 appl topical DAILY 09/15/24 01/20/25 Unknown History topical cream lurasidone 120 mg tablet 120 mg PO QAM 09/15/24 01/20/25 Unknown History tirzepatide (weight loss) 5 mg/0.5 5 mg subcut QWEEK 09/15/24 01/20/25 Unknown History mL subcutaneous pen injector (Zepbound) Exam Airway Mallampati Class: II TM Dist: <=3cm Neck ROM: Full Loose/Missing/Broken Teeth: No Heart: ok Lungs: ok Assessment and Plan Assessment Anesthesia Assessment: Anesthesia Plan Discussed and Chart Reviewed Final Anesthetic Review NPO: Yes ASA Class: III Final Preanesthetic Review: No Changes in Pt Med Stat, Meds/Allgs Chart Reviewed, Consent Obtained/Reviewed and Anes Risks/Benef Reviewed Patient Risk: Intermediate Procedure Risk: Intermediate Anesthetic Plan Anesthetic Plan: Agree w/ Assess. and Plan and TIVA Disposition: Standard PACU
[2025-01-25 07:13] VITALS: BP 121/57; PULSE 74; RESP 16; TEMP 36.7; O2SAT 99; BMI 30.6
[2025-01-25] MEDS: Lactated Ringers 1,000 ML 100 ML IVCONT (07:25)
--- NOTE | 2025-01-25 08:17 | MHC.SHP ---
Pre-Procedural Eval Section A - 24 Hr Update-Section A only Date of Service: 01/25/25 Section B - Complete if H&P > 30 days Chief Complaint: gerd Relevant Family History (Specify if Yes): No Relevant Social History: None Present Medications: see Short Stay Collaborative assessment Medical History: Significant History (Insomnia Degenerative joint disease of left hand Carpal tunnel syndrome on both sides Gastroparesis Urinary incontinence Hypertension GERD (gastroesophageal reflux disease) Panic attacks Anxiety Bipolar 1 disorder Sleep apnea Fibromyalgia Depression) History of Previous Operations: Relevant previous surgery/procedure and date(s) (H/O colonoscopy Hx of tubal ligation History of esophagogastroduodenoscopy (EGD) Hx of cholecystectomy Hx of section History of carpal tunnel surgery) Allergies: Allergies Allergy/AdvReac Type Severity Reaction Status Date / Time oxycodone (Percocet) Allergy Severe itch Verified 09/15/24 11:23 seafood Allergy Severe Swelling Verified 09/15/24 11:23 Sulfa (Sulfonamide Allergy Mild RASH Verified 09/15/24 11:23 Antibiotics) (SULFA(SULFONAMIDE ANTIBIOTICS)) Review of Systems Sugical H&P ROS: Negative: Constitution, Cardiovascular, Respiratory, Neurological, Psychiatric, Hem-Onc, Allergic/Immunologic, Gastrointestinal, Genitourinary, Musculoskeletal, Integumentary, Endocrine and Eyes/Ears/Nose/Throat Exam Surgical H&P Exam: Normal: HEENT, Normal: Heart, Normal: Lungs, Normal: Extremities, Normal: Abdomen, Normal: Skin and Normal: Neurological Plan Diagnosis/Plan: Unchanged I have reviewed the history and physical and performed a pertinent physical examination on my patient. No changes have occurred unless specified. Time Spent With Patient Time: Total time managing care of this patient today ____ minutes.
--- NOTE | 2025-01-25 08:48 | W.PM.OPN ---
Operative Note Operative Note Date of Service: 01/25/25 Narrative: Procedure Description: EGD Indication: dysphagia and gastroparesis Anesthesia: MAC FLEXIBLE TRANSORAL UPPER GASTROINTESTINAL ENDOSCOPY UPPER ENDOSCOPY Consent: Indications for the procedure and potential complications of bleeding, perforation, reaction to medications and missed diagnosis were discussed with the patient and informed consent was obtained. Instrument: Olympus GIF H 190 J mid size upper endoscope Monitoring: Vital signs and clinical assessment, continuous EKG monitoring, Pulse oximetry, Carbon Dioxide monitoring and blood pressure monitoring were done throughout the procedure. Procedure: The patient was placed in the left lateral decubitis position and pre-procedure medications were administered and a bite block was placed. The endoscope was inserted into the mouth and advanced under direct vision to the third part of duodenum. A careful inspection was made as the upper endoscope was withdrawn including a retroflexed examination of the proximal stomach; Findings and interventions are described below. Findings: Larynx:normal Esophagus: GE junction at 38 cm, diaphragm hiatus at 38 cm, irregular Z line and mild esophagitis, bx taken, balloon dilation done to 20 mm at LES and UES, no tears seen. Stomach: patchy erythema . Biopsies were obtained. Grade 2 flap valve on retroflexed examination of the cardia. Pylorus was dilated using wire guided balloon to 20 mm, no tears seen, but peristalsis was then noted Duodenum: Normal bulb and descending duodenum, bx taken Intervention: Biopsies as noted above, balloon dilation with and without wire Impression/Findings: gastritis esophagitis PLAN: cont with PPI GERD precautions if h pylori pos then treat
[2025-01-25 08:55] VITALS: BP 105/54; PULSE 75; RESP 17; TEMP 36.1; O2SAT 100
[2025-01-25 09:10] VITALS: BP 122/58; PULSE 68; RESP 16; O2SAT 99
[2025-01-25 09:22] VITALS: BP 122/58; PULSE 70; RESP 16; TEMP 36.6; O2SAT 99
== END 2025-01-25 09:39 | disposition home or self-care (01) ==
PROVIDERS: PCP Pediatrics; Visit Provider Internal Medicine Gastroenterology
PROC: 0DJ08ZZ Inspection of Upper Intestinal Tract, Via Natural or Artificial Opening Endoscopic (ICD-10-PCS; CPT 43235; principal; 2025-01-25 08:20)
DX: K21.9 Gastro-esophageal reflux disease without esophagitis (principal); R13.10 Dysphagia, unspecified; K31.84 Gastroparesis; K29.50 Unspecified chronic gastritis without bleeding; K22.89 Other specified disease of esophagus; K20.80 Other esophagitis without bleeding; K44.9 Diaphragmatic hernia without obstruction or gangrene; I10 Essential (primary) hypertension; M79.7 Fibromyalgia; F31.9 Bipolar disorder, unspecified; F41.9 Anxiety disorder, unspecified; F41.0 Panic disorder [episodic paroxysmal anxiety]; G47.33 Obstructive sleep apnea (adult) (pediatric); Z99.89 Dependence on other enabling machines and devices; Z90.49 Acquired absence of other specified parts of digestive tract; Z88.2 Allergy status to sulfonamides; Z88.5 Allergy status to narcotic agent; Z98.890 Other specified postprocedural states
CPT/HCPCS: 43249; 43245; 43239; 88305; 88313; 88342; C1726; J2003; J2704

== ENCOUNTER → 2025-01-25 06:45 | Outpatient (BNV) | payer MEDICAID, SELFPAY | PROVIDERS: PCP Pediatrics; Visit Provider Internal Medicine Gastroenterology | DX: K20.90 Esophagitis, unspecified without bleeding (principal); K29.70 Gastritis, unspecified, without bleeding | CPT/HCPCS: 43239; 43249 ==

== ENCOUNTER 2025-04-26 13:55 | Outpatient (AMB) | payer MEDICAID, SELFPAY ==
--- NOTE | 2025-04-26 14:04 | A.OFFVIS_ITS ---
Vital Signs 04/26/25 14:10 Height 5 ft 6 in Weight 183 lb BMI 29.5 BP 134/78 Blood Pressure Location Rt brachial Position Sitting Pulse 78 Pulse Source Pulse Oximeter Pulse Oximetry (%) 99 Oxygen Delivery Method Room Air Intake Visit Reasons: egd gale Intake Note: ESTABLISHED PATIENT for GERD, constipation, and dysphagia mgmt. S/P egd w/ TH Chief Complaint; Pt denies any new GI concerns or sx at this time. Confirms her current Rx and that they are working as intended. Pt denied automotive parts interpreter services while with [place] for the intake process. Did request automotive parts interpreter services while with provider. Meat Market Manager Required: Yes Meat Market Manager Services: Meat Market Manager Present Meat Market Manager Name: [facility] [place] [facility] Information Interpreted: clinical only Accompanied by: Family/Other Allergies oxycodone (Percocet) Allergy (Severe, Verified 04/26/25 14:07) itch seafood Allergy (Severe, Verified 04/26/25 14:07) Swelling Sulfa (Sulfonamide Antibiotics) (SULFA(SULFONAMIDE ANTIBIOTICS)) Allergy (Mild, Verified 04/26/25 14:07) RASH Medication List - Last Reconciled 04/26/25 by DIPESH Laughlin-CAROLINA bisacodyl 10 mg (2 x 5 mg) PO BEDTIME cholecalciferol (vitamin D3) 50 mcg PO DAILY clotrimazole-betamethasone 1-0.05 % 1 appl topical BID duloxetine 60 mg PO BID esomeprazole magnesium 40 mg PO QAM famotidine 40 mg PO QAM ferrous sulfate (FeroSul) 325 mg PO DAILY ketoconazole 2% 1 appl topical 2XW ketorolac 10 mg PO Q8H PRN labetalol 1 tab PO BID lidocaine-prilocaine 2.5-2.5 % 1 appl topical DAILY lisinopril 20 mg PO QAM ondansetron HCl 4 mg PO Q8H PRN prazosin 1 mg PO BEDTIME pregabalin 100 mg PO BID quetiapine 100 mg PO BEDTIME simethicone (Gas Relief Extra Strength) 125 mg PO Q6H PRN tirzepatide (weight loss) (Zepbound) mg subcut QWEEK HPI HPI egd baljinder: Details: LAST VISIT: Gastroparesis GERD (gastroesophageal reflux disease) Constipation Dyspepsia Pancreatitis Plan Patient will continue taking Dulcolax. Message sent to Surgical schedule to bulk procedure for patient. Patient will try to have breakfast in the morning day before procedure and then will do clear liquids. I recommend holding set found for 2 weeks before the procedure to make sure that patient has and the stomach. She was diagnosed with gastroparesis already prior to starting Zepbound and being on GLP 1 might not be a great idea for patient. However patient reports that her symptoms were the same before starting GLP 1. Discussed with her dietary choices and symptoms may improve if she eats low fiber and smaller meals avoid sparkling drinks/soda os. Gastroparesis diet given to patient in [place]iny[place]. Patient will follow-up after the procedure. Message send to Surgical scheduled to book procedure. Patient is agreeable to current plan of care and verbalizes understanding of instructions. She was given the opportunity to ask questions and all questions answered. UPPER ENDOSCOPY Findings: Larynx:normal Esophagus: GE junction at 38 cm, diaphragm hiatus at 38 cm, irregular Z line and mild esophagitis, bx taken, balloon dilation done to 20 mm at LES and UES, no tears seen. Stomach: patchy erythema . Biopsies were obtained. Grade 2 flap valve on retroflexed examination of the cardia. Pylorus was dilated using wire guided balloon to 20 mm, no tears seen, but peristalsis was then noted Duodenum: Normal bulb and descending duodenum, bx taken Intervention: Biopsies as noted above, balloon dilation with and without wire Impression/Findings: gastritis esophagitis PLAN: cont with PPI GERD precautions if h pylori pos then treat PATHOLOGY Diagnosis A. Duodenum, biopsy: Duodenal mucosa with preserved villi and no specific change. B. Stomach, biopsy: Superficial fragments of gastric body mucosa with focal minimal chronic inactive inflammation; negative for H.pylori, intestinal metaplasia and dysplasia. C. Gastroesophageal junction, biopsy: Squamocolumnar mucosa with minimal chronic inflammation; negative for intestinal metaplasia and dysplasia. D. Esophagus, distal, biopsy: Squamous mucosa with no specific change; no columnar mucosa present. E. Esophagus, proximal, biopsy: Squamous mucosa with no specific change; no columnar mucosa present. TODAY'S VISIT The patient is here today for follow-up and to discuss upper endoscopy results. Patient denies any issues with anesthesia or procedure itself. Patient denies any dyspepsia, dysphagia or odynophagia. Reports occasional reflux at night time. Currently she is taking sucralfate. Patient feels like sucralfate is not helping. She is taking the PPI in the morning and for the most part her symptoms are suppressed. Patient is taking Nexium before breakfast. Patient is trying to eat healthier. She is on Zepbound for weight loss and tolerating it well for the most part. Patient reports that she lost over 30 lb since August. Patient denies any nausea or vomiting. Denies any abdominal pain or discomfort. Reports that she is moving her bowels without any issues. Denies melena, hematochezia, unintentional weight loss or ribbon like stools PFSH Medical History Insomnia Degenerative joint disease of left hand Carpal tunnel syndrome on both sides Gastroparesis Urinary incontinence Hypertension GERD (gastroesophageal reflux disease) Panic attacks Anxiety Bipolar 1 disorder Sleep apnea Fibromyalgia Depression Surgical History H/O colonoscopy Hx of tubal ligation History of esophagogastroduodenoscopy (EGD) Hx of cholecystectomy Hx of section History of carpal tunnel surgery Family History Mother HTN (hypertension) Diabetes Father HTN (hypertension) Paternal Aunt Breast cancer Social History Household Members: Children Are you a primary health care coordinator to a significant other at home: No Do you presently have visiting nurse or other home services: No Alcohol intake: never Patient Tobacco Use Status: Never used Tobacco Female Reproductive History Menstrual Age of Menarche: 15 Review of Systems Const Denies weight gain and Denies weight loss ENT Reports no additional complaints, Reports dysphagia and Denies odynophagia Card Reports no additional complaints Resp Reports no additional complaints GI Denies abdominal pain, Denies belching, Denies melena, Denies bloating, Denies change in bowel habits, Reports constipation, Reports dysphagia, Denies excessive flatus, Denies dyspepsia, Reports heartburn, Denies diarrhea, Denies loose stools, Denies nausea, Denies odynophagia and Denies vomiting Reports no additional complaints Musc Reports no additional complaints Neuro Reports no additional complaints Psych Reports no additional complaints Endo Reports no additional complaints Physical Exam Vital Signs: Last Vital Signs Pulse 78 04/26/25 14:10 BP 134/78 04/26/25 14:10 Pulse Ox 99 04/26/25 14:10 Oxygen Delivery Method Room Air 04/26/25 14:10 BMI result Body Mass Index 29.5 Const General: healthy appearing and no acute distress Nutritional Appearance: obese Orientation/consciousness: patient oriented x3 Resp Effort & Inspection: normal respiratory effort, able to speak in complete sentences, no tracheal deviation and symmetric chest movement Auscultation: clear to auscultation bilaterally Cardio Rate: regular rate GI Inspection: Yes normal to inspection, No distended and Yes obesity Palpation (GI): Soft to palpation, not firm, nontender and No hepatosplenomegaly present Auscultation: normal bowel sounds General: Yes no CVA tenderness Back/Spine/Pelvis Back: no CVA tenderness Skin General skin exam: elasticity normal, turgor normal and dry skin Neuro General: patient oriented x3 Psych Appearance: grossly normal Mental Status: mental status grossly normal Assessment & Plan Assessment & Plan (1) GERD (gastroesophageal reflux disease): Code(s): K21.9 - Gastro-esophageal reflux disease without esophagitis Category: Medical Qualifiers: Esophagitis presence: esophagitis presence not specified Qualified Code(s): K21.9 - Gastro-esophageal reflux disease without esophagitis (2) Gastroparesis: Code(s): K31.84 - Gastroparesis Category: Medical (3) Postprandial epigastric pain: Code(s): R10.13 - Epigastric pain (4) Constipation: Code(s): K59.00 - Constipation, unspecified Qualifiers: Constipation type: slow transit constipation Qualified Code(s): K59.01 - Slow transit constipation (5) Dyspepsia: Code(s): R10.13 - Epigastric pain (6) Pancreatitis: Code(s): K85.90 - Acute pancreatitis without necrosis or infection, unspecified Plan Discussed with patient the importance of being careful with the GLP 1 as she had pancreatitis in the past and has gastroparesis. Small meals and more often. Patient was encouraged to make sure that she is moving her bowels daily. Patient will take famotidine at bedtime and Nexium in the morning. Avoid dietary triggers in late night snacking. Staying upright for minimum 3 hours after meals discussed with patient. Follow-up in 4 months. Patient was encouraged to call us if she will have any GI concerning symptoms. She is agreeable to this plan and verbalizes understanding of instructions. She was given the opportunity to ask questions and all questions answered. Thank you for allowing me to participate in her care Medications: New famotidine 40 mg PO QAM 90 tabs 2RF Refilled esomeprazole magnesium 40 mg PO QAM 90 caps 2RF K21.9 - Gastro-esophageal reflux disease without esophagitis Discontinued sucralfate Discontinued Reason: Doctor's Order 1 g PO BID 60 tabs 1RF Coding Level of Care Code Est Pt Level 4 (44376) Add On Problem Visit Only Diagnoses Gastroesophageal reflux disease, unspecified whether esophagitis present K21.9 Esophagitis presence: esophagitis presence not specified Gastroparesis K31.84 Postprandial epigastric pain R10.13 Slow transit constipation K59.01 Constipation type: slow transit constipation Dyspepsia R10.13 Pancreatitis K85.90 Time Spent (min) 40 Comment 25 minutes spent with patient and additional 15 minutes spent reviewing her records
[2025-04-26 14:10] VITALS: BP 134/78; PULSE 78; O2SAT 99; BMI 29.5
--- OUTSIDE RECORDS SUMMARY | 2025-04-26 15:57 | XMS_ITS | Encounter Summary ---
Author Organization [employer] Address [address] [address] Care Team Providers Care Milled Rubber Tender Name Role Phone Frannie Cedillo MD Primary Care Provider [phone] Reason for Visit * Reason Onset Date Comments Med Refill Blood work order 06/16/2022 Encounter Details Date Type Department Care Team ([facility] st Contact Info) Description 06/16/2022 Refill [facility] MEDICINE [address] [place] [address] Frannie Cedillo MD [address] [place] [address] Social History Tobacco Use Types Packs/Day Years [...] was not made. Please contact pt at [phone] documented in this encounter Plan of Treatment Upcoming Encounters Date Type Department Care Team (Late st Contact Info) Description 06/06/2025 3:00 PM EST Office Visit [facility] OPTOMETRY [address] [place] [address] JoseKaren lynn, OD [address] [place] [address] documented as of this encounter Visit Diagnoses Not on filedocumented in this encounter Care Teams Milled Rubber Tender Relationship Specialty Start Date End Date Frannie Cedillo MD [address] [place] [id number] PCP - General Family Medicine 07/21/13 documented as of this encounter
--- OUTSIDE RECORDS SUMMARY | 2025-04-26 15:57 | XMS_ITS | Encounter Summary ---
Author Organization [employer] Address [address] [address] Care Team Providers Care Setter Automatic Spinning Lathe Name Role Phone Frannie Cedillo MD Primary Care Provider Reason for Visit * Reason Onset Date Comments Med Refill 01/25/2025 Encounter Details Date Type Department Care Team ([facility] st Contact Info) Description 01/25/2025 Refill [facility] CHC MED & PEDS [address] [place] [address] Frannie Cedillo MD [address] [place] [address] Social History Tobacco Use Types Packs/Day Years [...] Description 06/06/2025 3:00 PM EST Office Visit [facility] OPTOMETRY [address] [place] [address] Jose, Karen, OD [address] [place] [address] documented as of this encounter Visit Diagnoses Not on filedocumented in this encounter Additional Health Concerns Assessment Noted Time PHQ-9 Depression Total Score: 0 06/25/19 25 9:33 AM EST documented as of this encounter Care Teams Setter Automatic Spinning Lathe Relationship Specialty Start Date End Date Frannie Cedillo MD [address] [place] [address] PCP - General Family Medicine 07/21/13 documented as of this encounter
--- OUTSIDE RECORDS SUMMARY | 2025-04-26 15:57 | XMS_ITS | Encounter Summary ---
Author Organization [employer] Address [address] [place] [address] Care Team Providers Care Duralumin Metalworker Name Role Phone Frannie Cedillo MD Primary Care Provider [phone] Reason for Visit * Reason Comments Med Refill Encounter Details Date Type Department Care Team ([facility] st Contact Info) Description 12/13/[address] [facility] CHC MED & PEDS [address] [place], [place] [phone] Frannie Cedillo MD [address] [place] [address] Social History Tobacco Use Types Packs/Day Years [...] 3:00 PM EST Office Visit [facility] OPTOMETRY [address] [place] [address] Jose, Karen, OD [address] [place] [address] documented as of this encounter Visit Diagnoses Not on filedocumented in this encounter Additional Health Concerns Assessment Noted Time PHQ-9 Depression Total Score: 0 06/25/19 25 9:33 AM EST documented as of this encounter Care Teams Duralumin Metalworker Relationship Specialty Start Date End Date Frannie Cedillo MD [address] [place] [address] PCP - General Family Medicine 07/21/13 documented as of this encounter
--- OUTSIDE RECORDS SUMMARY | 2025-04-26 15:57 | XMS_ITS | Encounter Summary ---
Author Organization [employer] Address [address] [address] Care Team Providers Care Intervention Manager Name Role Phone Frannie Cedillo MD Primary Care Provider [phone] Reason for Visit * Reason Onset Date Comments Med Refill 11/15/2024 Encounter Details Date Type Department Care Team ([facility] st Contact Info) Description 11/15/2024 Refill [facility] MED & PEDS [address] [place] [address] Frannie Cedillo MD [address] [place] [address] Social History Tobacco Use Types Packs/Day Years [...] Description 06/06/2025 3:00 PM EST Office Visit [facility] OPTOMETRY [address] [place] [address] Jose, Karen, OD [address] [place] [address] documented as of this encounter Visit Diagnoses Not on filedocumented in this encounter Additional Health Concerns Assessment Noted Time PHQ-9 Depression Total Score: 0 06/25/19 25 9:33 AM EST documented as of this encounter Care Teams Intervention Manager Relationship Specialty Start Date End Date Frannie Cedillo MD [address] [place] [address] PCP - General Family Medicine 07/21/13 documented as of this encounter
--- OUTSIDE RECORDS SUMMARY | 2025-04-26 15:57 | XMS_ITS | Encounter Summary ---
Author Organization [employer] Address [address] [place] [address] Care Team Providers Care Fusion Operator Name Role Phone Frannie Cedillo MD Primary Care Provider [phone] Reason for Visit * Reason Onset Date Comments Immunizations 01/30/2023 HPV #3 Appointment Request 01/30/2023 Encounter Details Date Type Department Care Team ([facility] st Contact Info) Description 01/30/2023 Telephone [facility] CHC MED & PEDS [address] [place], [place] [phone] Frannie Cedillo MD [address] [place], [place] [phone] Immunizations (HPV #3); Appointment Request Social History [...] the pharmacy * Telephone Encounter - Marva Alexandre - 01/30/2023 11:08 AM EDT Tc from patient requesting a nurse visit for HPV #3 vaccine. Patient speaks beninese documented in this encounter Plan of Treatment Upcoming Encounters Date Type Department Care Team (Late st Contact Info) Description 06/06/2025 3:00 PM EST Office Visit [facility] OPTOMETRY [address] [place] [address] Jose, Karen, OD [address] [place] [address] documented as of this encounter Visit Diagnoses Not on filedocumented in this encounter Care Teams Fusion Operator Relationship Specialty Start Date End Date Frannie Cedillo MD [address] [place] [address] PCP - General Family Medicine 07/21/13 documented as of this encounter
--- OUTSIDE RECORDS SUMMARY | 2025-04-26 15:57 | XMS_ITS | Encounter Summary ---
Author Organization [employer] Address [address] [place] [address] Care Team Providers Care Plate Molder Name Role Phone Frannie Cedillo MD Primary Care Provider [phone] Encounter Details Date Type Department Care Team ([facility] Contact Info) Description 02/07/2023 Orders Only [facility] CHC MED & PEDS [address] [place] [address] AlyHarshad Martinez MD [address] [place] [address] Social History Tobacco Use Types Packs/Day Years [...] Department Care Team (Late Contact Info) Description 06/06/2025 3:00 PM EST Office Visit [facility] OPTOMETRY [address] [place] [address] Karen Garcia, OD [address] [place] [address] documented as of this encounter Visit Diagnoses Not on filedocumented in this encounter Care Teams Plate Molder Relationship Specialty Start Date End Date Frannie Cedillo MD [address] [place] [address] PCP - General Family Medicine 07/21/13 documented as of this encounter
--- OUTSIDE RECORDS SUMMARY | 2025-04-26 15:57 | XMS_ITS | Encounter Summary ---
Author Organization [employer] Address [address] [place] [address] Care Team Providers Care Remote Sensing Analyst Name Role Phone Frannie Cedillo MD Primary Care Provider [phone] Reason for Visit * Reason Comments Med Refill Encounter Details Date Type Department Care Team ([facility] Contact Info) Description 02/24/2023 Refill [facility] CHC MED & PEDS [address] [place] [address] Patricia Brice MD [address] [place] [address] Social History Tobacco Use Types Packs/Day Years [...] Upcoming Encounters Date Type Department Care Team ([facility] Contact Info) Description 06/06/2025 3:00 PM EST Office Visit [facility] OPTOMETRY [address] [place] [address] Karen Garcia, OD [address] [place] [address] documented as of this encounter Visit Diagnoses Not on filedocumented in this encounter Care Teams Remote Sensing Analyst Relationship Specialty Start Date End Date Frannie Cedillo MD [address] [place] [address] PCP - General Family Medicine 07/21/13 documented as of this encounter
--- OUTSIDE RECORDS SUMMARY | 2025-04-26 15:57 | XMS_ITS | Clinical Summary ---
Author Organization [employer] Address [address] [place] [address] 7 [place] [address] Care Team Providers Care Blast Furnace Checker Name Role Phone Frannie Cedillo MD Primary Care Provider [phone] Allergies Active Allergy Reactions Criticality Noted Date Comments Oxycodone-Acetaminophen 07/10/2023 hives, itching Shellfish Allergy 07/10/2023 Sulfa Antibiotics 07/10/2023 Sulfadiazine 07/10/2023 Sulfamethoxazole 05/29/2011 Other reaction(s): rash: itching, itching develo Trimethoprim 05/29/2011 Other reaction(s): rash: itching, itching develo Medications DULoxetine (Cymbalta) [address] capsule take 1 capsule by oral route 2 times every day Active Sennosides 8.6 MG capsule take 1 capsule by oral route every day Active Blood Pressure kit 1 Units in the morning. 1 kit 023 Active QUEtiapine (SEROquel) 100 MG tablet TAKE ONE TABLET EVERY NIGHT AT BEDTIME 30 tablet 1 024 Active hyoscyamine (Levsin/SL) 0.125 MG SL tablet Take 1 tablet every 4 hours as needed for bladder spasm 120 tablet 1 024 Active Additional Information Patient not taking.Reason: Not effective, Reported on 12/28/2024 Bisacodyl EC 5 MG EC tablet TAKE TWO TABLETS EVERY DAY AT BEDTIME 024 Active esomeprazole (NexIUM) [address] capsule Take 40 mg by mouth in the morning. 024 Active cholecalcifero l VITAMIN D (Vitamin D-3) 50 MCG (1999 UT) capsule TAKE ONE CAPSULE EVERY MORNING 90 capsule 1 025 Active Tirzepatide-We ight Management (Zepbound) 10 MG/0.5ML solution auto-injector INJECT ONE PEN (=10MG) SUBCUTANEOUSLY ONCE A WEEK DIRECTED 2 mL 3 025 Active Ferrous Sulfate (iron) 325 (65 Fe) MG tabletIndicati ons:Iron deficiency anemia, unspecified iron deficiency anemia type TAKE ONE TABLET TWICE DAILY IN THE MORNING AND AT BEDTIME 180 tablet Active labetalol (Normodyne) 200 MG tablet TAKE ONE TABLET TWICE DAILY IN THE MORNING AND AT BEDTIME 180 tablet Active famotidine (Pepcid) 40 MG tablet TAKE ONE TABLET EVERY MORNING 90 tablet Active lisinopril 20 MG tablet TAKE ONE TABLET EVERY MORNING 90 tablet Active famotidine (Pepcid) 40 MG tablet TAKE ONE TABLET EVERY MORNING 90 tablet 1 025 2024 Discontinued lisinopril 20 MG tablet TAKE ONE TABLET EVERY MORNING 90 tablet 1 025 2024 Discontinued Active Problems Patient Care Coordination No te Formatting of this note migh t be different from the original. [id number] KRISTAL [employer] program graduation Problem Noted Date [...] to occupational therapy and hand surgeon at [place] for further evaluation. Atypical squamous cells of u ndetermined significance (ASCUS) on Papanicolaou smear of cervix 12/06/2022 Overview (07/23/2023): ECC neg, pap LGSIL/HPV neg. pt notified. plan for repeat pap in 1 yrColpo - neg lesions. pap and ECC obtained Candidiasis of vagina 11/05/2017 Schizoaffective disorder, bipolar type ([facility]/HCC) 07/29/2017 Primary fibromyalgia syndrome 11/14/2016 Obstructive sleep apnea [...] Encounters Date Type Department Care Team Description 03/30/2025 Refill [facility] [address] [place] [address] Frannie Cedillo MD 03/01/2025 Refill [facility] [address] [place] [address] Frannie Cedillo MD Iron deficiency anemia, unspecified iron deficiency anemia type 01/25/2025 Orders Only GENERIC EXTERNAL DATA DEPARTMENT Provider, Generic External Data 01/25/2025 Refill [facility] [address] [place] [address] Frannie Cedillo MD 01/25/2025 Refill [facility] [address] [place] [address] Frannie Cedillo MD from Last 3 Months Immunizations Immunization Administration Dates Next Due DTaP 09/11/2012 HPV 9-Valent 02/07/2023,09/13/2022,08/09/2022 Hep B, adult 01/04/2019,10/16/2018,09/15/2018 Influenza injectable quadriv alent IIV4 with preservative 03/16/2019,02/26/2018,02/11/2017,2015,02/17/2015 Influenza injectable quadriv alent preservative free 02/07/2023,03/05/2022,03/14/2021,2019 Influenza, IIV3, injectable 03/10/2014 Influenza, Split (incl. ward fied surface antigen) 02/09/2013 Influenza, seasonal, injecta ble, preservative free 07/27/2024 Tdap 07/03/2015 Family History Medical History Relation [...] Sign Reading Time Taken Comments Blood Pressure 138/83 12/28/2024 9:34 AM EDT Pulse 78 12/28/2024 9:34 AM EDT Temperature 37.1 C (98.7 F) 12/28/2024 9:34 AM EDT Respiratory Rate 20 12/28/2024 9:34 AM EDT Oxygen Saturation 99% 08/09/2024 9:43 AM EDT Inhaled Oxygen Concentration - - Weight 88.9 kg (196 lb) 12/28/2024 9:34 AM EDT Height 168.9 cm (5' 6.5 ) 12/28/2024 9:34 AM EDT Body Mass Index 31.16 12/28/2024 9:34 AM EDT Plan of Treatment Upcoming Encounters Date Type Department Care Team (Late st Contact Info) Description 06/06/2025 3:00 PM EST Office Visit [facility] OPT[facility]RY [address] [place] [address] Jose, Karne, OD [address] [place] [address] Health Maintenance Due Date Last Done Comments CT Colonography 1975 FIT DNA/Cologuard 1975 FIT 1975 FOBT 1975 Sigmoidoscopy 1975 Family Planning (PISQ) 1992 COVID-19 Vaccine ( season) 2025 04/04/2021, 10/12/2020, 09/20/2020 Influenza Vaccine (#1) 2025 , 02/07/2023, 03/05/2022, Additional history exists Disability Screening 05/27/2025 05/27/2024 Alcohol/Substance Use Screening 06/25/2025 06/25/2024 Depression Screening 06/25/2025 06/25/2024, 06/25/19 DTaP/Tdap/Td Vaccines (3 - Td or Tdap) 07/03/2025 07/03/2015, 09/11/2012 Cervical Cancer Screening 09/16/2025 HPV/Cotest 09/16/2025 09/16/2024, 12/0 10/2022, 12/06/2022, Additional history exists Pap Smear 09/16/2025 09/16/2024, 120 10/2022, 12/06/2022, Additional history exists SDOH Screening 09/16/2025 09/16/2024 Tobacco Screening 12/28/2025 12/28/2024 Mammogram 10/09/2026 10/09/2024, 09/24, 09/12/2023, Additional history exists Lipid Panel 03/06/2027 03/06/2022, 06/04/2021 Zoster Vaccines (1 of 2) 09/06/2027 Colonoscopy 02/18/2033 02/18/2023, 02/18/2023 Colorectal Cancer Screening 02/18/2033 RSV Patients and Patients Aged 60 years or older (1 - 1-dose 75+ series) 2052 Hepatitis B Vaccines Completed 01/04/2019, 10/16/2018, 09/15/2018 HIV Screening Completed 10/23/2022, 02/23, 10/17/2021, Additional history exists HPV Vaccines Completed 02/07/2023, 08/25, 08/09/2022 Colposcopy Completed 05/01/2023 Hepatitis C Screening Completed 07/23/2023 , 10/23/2022, 03/06/2022, Additional history exists HIB Vaccines Aged Out [...] Years) and At-Risk Patients (6 to 49) Years Aged Out No longer eligible based on patient's age to complete this topic RSV under 20 months Aged Out No longe r eligible based on patient's age to complete this topic Rotavirus Vaccines Aged Out No longer eligible based on patient's age to complete this topic Procedures Procedure Name Priority Date/Time Associated Diagnosis Comments HEMATOXYLIN AND EOSIN STAIN Routine 01/25/2025 8:44 AM EDT BI MAMMOGRAM SCREENING TOMOSYNTHESIS BILATERAL Routine 10/09/2024 8:15 AM EDT HPV DNA, LOW/HIGH RISK Routine 09/16/2024 10:00 AM EDT PAP SMEAR Routine 09/16/2024 10:00 AM EDT Encounter for gynecological examination with Papanicolaou smear of cervix HEPATITIS C AB W/REFL TO HCV RNA, QN, PCR Routine 07/23/2023 9:17 AM EST Lower abdominal pain COLPOSCOPY Routine 05/01/2023 HM COLONOSCOPY Routine 02/18/2023 4:41 PM EDT HIV ANTIBODY/ANTIGEN ([place] DPH) Routine 10/23/2022 4:12 PM EDT LIPID PANEL, STANDARD Routine 03/06/2022 8:44 AM EDT from Last 3 Months or Most Recently Relevant to Health Maintenance Results * Hematoxylin and Eosin Stain (01/25/2025 8:44 AM EDT) 01/25/2025 8:44 AM EDT 01/25/2025 9:17 AM EDT [facility] - 01/27/2025 9:34 AM EDT ----- ------- Name: Millicent David Age/Sex: 49/F : 1975 [facility]#: [id number] Unit#: [id number] Attend Dr: Barbi Nazario MD Re01/25/25 Status: [facility] Location: [facility] Disch: ----- ------- SPEC : [id number] RECD: 01/25/25 STATUS: LARA [facility] NUM: [id number] AVIS: 01/25/25-[address] [facility] DR: Barbi Nazario MD ENTERED: 01/25/25 SP TYPE: Surgical OTHR DR: Frannie Cedillo MD ORDERED: HE Stain/15, Gross Micro L4/5, IHC, Special st. 2, H. pylori, AB/PAS Diagnosis A. Duodenum, biopsy: Duodenal mucosa with preserved villi and no specific change. B. Stomach, biopsy: Superficial fragments of gastric body mucosa with focal minimal chronic inactive inflammation; negative for H.pylori, intestinal metaplasia and dysplasia. C. Gastroesophageal junction, biopsy: Squamocolumnar mucosa with minimal chronic inflammation; negative for intestinal metaplasia and dysplasia. D. Esophagus, distal, biopsy: Squamous mucosa with no specific change; no columnar mucosa present. E. Esophagus, proximal, biopsy: Squamous mucosa with no specific change; no columnar mucosa present. Clinical History Pre-Op Dx: GERD Post-Op Dx: Gastritis, esophagitis Microscopic Description Microscopic sections reviewed. Immunostain for H. pylori on B is negative. AB/PAS on C is negative for intestinal metaplasia. Controls stain appropriately. Material Received A. Duodenum bx's B. Stomach bx's C. GE junction bx's D. Distal esophagus bx's E. Proximal esophagus bx's Gross Description Received in five parts. Part A: Received in formalin labeled duodenum bx's are three garcia irregular and rectangular tissue fragments ranging from 0.2-0.35 cm, submitted in toto in a cassette labeled A. Part B: Received in formalin labeled stomach bx's are two garcia-pink irregular and CONTINUED ON NEXT PAGE ----- ------- Name: Millicent David Age/Sex: 49/F : 1975 Unit#: [id number] Attend Dr: Barbi Nazario MD Re01/25/25 Status: [facility] Location: [facility] Disch: ----- ------- SPEC : [id number] RECD: 01/25/25 STATUS: LARA RIZZO NUM: [id number] AVIS: 01/25/[address] [facility] DR: Barbi Nazario MD ENTERED: 01/25/25 SP TYPE: Surgical OTHR DR: Frannie Cedillo MD ORDERED: HE Stain/15, Gross Micro L4/5, IHC, Special st. 2, H. pylori, AB/PAS Gross Description (Continued) rectangular tissue fragments measuring 0.3 and 0.45 cm, submitted in toto in a cassette labeled B. Part C: Received in formalin labeled GE junction bx's are two garcia-pink irregular tissue fragments each measuring 0.3 cm, submitted in toto in a cassette labeled C. Part D: Received in formalin labeled distal esophagus bx's are three catherine-white thin and delicate rectangular tissue fragments each measuring 0.3 cm, submitted in toto in a cassette labeled D. Part E: Received in formalin labeled proximal esophagus bx's are three catherine-white irregular and rectangular tissue fragments ranging from 0.1-0.25 cm, submitted in toto in a cassette labeled E. CEDS Special studies ordered and performed: Immunostain for H. pylori on B1; AB/PAS stains on C1. IHC S/NG Disclaimer NOTE: Unless otherwise stated, all tissue is formalin-fixed and paraffin-embedded. Some or all of the immunohistochemical tests reported herein may have been developed and their performance characteristics determined by [facility]. They have not been cleared or approved by the U.S. Food and Drug Administration (FDA). However, the FDA has determined that such clearance or approval is not necessary. This laboratory is certified under the Clinical Laboratory Improvement Amendments of 1988 (CLIA) as qualified to perform high complexity clinical laboratory testing. Copies To: Frannie Cedillo MD [address] [address] Barbi Nazario MD [facility] [address] [place] [id number] CONTINUED ON NEXT PAGE ----- ------- Name: Millicent David Age/Sex: 49/F : 1975 Unit#: [id number] Attend Dr: Barbi Nazario MD Re01/25/25 Status: [facility] Location: [facility] Disch: ----- ------- SPEC : [id number] RECD: 01/25/25 STATUS: LARA RIZZO NUM: [id number] AVIS: 01/25/[address] [facility] DR: Barbi Nazario MD ENTERED: 01/25/25 SP TYPE: Surgical OTHR DR: Frannie Cedillo MD ORDERED: HE Stain/, Gross Micro L4/5, IHC, Special st. 2, H. pylori, AB/PAS ----- ------- Signed (signature on file) Leeann Chama 01/27/25932 ----- ------- END OF REPORT us Generic External Data Provider LAB BLOOD ORDERAB LES Final Result [facility] [address] [place] [address] [phone] * BI Mammogram Screening Tomosynthesis Bilateral (10/09/2024 8:15 AM EDT) Anatomical Region Laterality Modality Breast Bilateral Mammography 10/09/2024 8:15 AM EDT Narrative 10/16/2024 2:55 PM EDT [address] [place] [address] Mammography Report Signed Patient: Millicent David MR#: [id number] 0 : 1975 Acct:[id number] Age/Sex: 49 / F ADM Date: 10/09/24 Loc: HO.MAMMO Attending Dr: Frannie Cedillo MD Ordering Physician: Frannie Cedillo MD Results: 1Ne gative Date of Service: 10/09/24 Follow Up: 1 Year From Orig inal Mammogram Procedure(s): MM tomosynthesis screening BI Accession Number(s): [id number] cc: Frannie Cedillo MD EXAMINATION: MM SCREENING DIGITAL BREAST TOMOSYNTHESIS, BILATERAL CLINICAL INFORMATION: Screening. Asymptomatic. COMPARISON: Mammography: Comparison is made with available priors TECHNIQUE: Digital breast mammography with tomosynthesis is performed in both the craniocaudal and mediolateral oblique views along with computer-aided detection (CAD). FINDINGS: There are scattered areas of fibroglandular density (ACR BI-RADS breast composition Category b). There are no significant masses, abnormal calcifications, or other abnormalities. MM/MM tomosynthesis screening BI IMPRESSION: No mammographic evidence of malignancy. ASSESSMENT: BI-RADS BI-RADS 1 - Negative RECOMMENDATION: Routine annual mammography screening. 1 year F/U This examination should not preclude the clinical evaluation of a suspicious palpable abnormality. This patient's information was entered into a reminder system with a target due date for their next mammogram. Electronically signed by: Mónica Voss DO 10/16/2024 02:52 PM EDT Dictated By: Mónica Voss DO Signed By: <Electronically signed by Mónica Voss DO in OV> 10/16/24 1452 DD/ 0815 TD/TT: 10/09/24 0820 Sharepoint Application Architect: Procedure Note Donotuseinterpreter, Image - 10/16/[address] [place] [address] Mammography Report Signed Patient: Millicent DavidMR#: [id number] 0 : 1975Acct:[id number] Age/Sex: 49 / FADM Date: 10/09/24 Loc: HO.MAMMO Attending Dr: Frannie Cedillo MD Ordering Physician: Frannie Cedillo MDResults: 1Ne gative Date of Service: 10/09/24Follow Up: 1 Year From Orig inal Mammogram Procedure(s): MM tomosynthesis screening BI Accession Number(s): [id number] cc: Frannie Cedillo MD EXAMINATION: MM SCREENING DIGITAL BREAST TOMOSYNTHESIS, BILATERAL CLINICAL INFORMATION: Screening. Asymptomatic. COMPARISON: Mammography: Comparison is made with available priors TECHNIQUE: Digital breast mammography with tomosynthesis is performed in both the craniocaudal and mediolateral oblique views along with computer-aided detection (CAD). FINDINGS: There are scattered areas of fibroglandular density (ACR BI-RADS breast composition Category b). There are no significant masses, abnormal calcifications, or other abnormalities. MM/MM tomosynthesis screening BI IMPRESSION: No mammographic evidence of malignancy. ASSESSMENT: BI-RADS BI-RADS 1 - Negative RECOMMENDATION: Routine annual mammography screening. 1 year F/U This examination should not preclude the clinical evaluation of a suspicious palpable abnormality. This patient's information was entered into a reminder system with a target due date for their next mammogram. Electronically signed by: Mónica Voss DO 10/16/2024 02:52 PM EDT Dictated By: Mónica Voss DO Signed By: <Electronically signed by Mónica Voss DO in OV> 10/16/24 1452 DD/ 0815 TD/TT: 10/09/24 0820 Sharepoint Application Architect: Frannie Cedillo MD IM BI PROCEDURES Edited Resu lt - Final * HPV DNA, Low/High Risk (09/16/2024 10:00 AM EDT) HPV High Risk Negative Negative [facility] HPV Genotype 16 Negative Negative [facility] HPV Genotype 18 Negative Negative [facility] Comment:HPV testing performe d at [facility] (CLIA#[id number]), [address] [place] [phone].Testing for HPV was performed using the Olimpia [...] MD LAB BLOOD ORDERABLES Final Re sult [facility] [address] [place] [phone] * Pap Smear (09/16/2024 10:00 AM EDT) Swab Cervical swab / Unknown 09/16/2024 10:00 AM EDT 09/17/2024 9:20 AM EDT [facility] - 09/21/2024 10:53 AM EDT ----- ------- Name: Millicent David Age/Sex: 49/F : 1975 Unit#: [id number] Attend Dr: Frannie Cedillo MD Re09/16/24 Status: DEP REF Location: [facility] Disch: ----- ------- SPEC : [id number] RECD: 09/17/24 STATUS: LARA RIZZO NUM: [id number] AVIS: 09/16/[address] [facility] DR: Frannie Cedillo MD ENTERED: 09/17/24 SP TYPE: Pap Smr OTHR DR: ORDERED: Pap Smear Interpretation Satisfactory for evaluation. Negative for intraepithelial lesion or malignancy. No endocervical cells seen. Coccobacilli consistent with shift in vaginal jb. HPV High Risk: Negative HPV Genotyping 16: Negative HPV Genotyping 18: Negative Clinical Information LMP: 08/22/2024 Previous PAP test: 05/02/2023, colposcopy negative Material Received ThinPrep-Cervical ----- ------- Signed (signature on file) BROOKLYNN Nuñez ([facility]) 09/21/24 1053 ----- ------- END OF REPORT Frannie Cedillo MD LAB CYTOLOGY ORDERABLES Final Result Performing Organization Address City/[facility]/ZIP Co de Phone Number [facility] [address] [place] [address] [phone] * Hepatitis C Antibody with Reflex to HCV, RNA, Quantitative, Real-Time PCR (07/23/2023 9:17 AM EST) Hepatitis C Antibody Nonreactive Nonreactive [facility] Comment:Antibodies to HCV no t detected; does not exclude early acuteHCV infection. Blood Venous blood specimen / Unknown 07/23/2023 9:17 AM EST 07/23/2023 11:08 AM EST Result [facility] Arianna DODSONP LAB BLOOD ORDERABLES Final Res ult Performing Organization Address [facility]/ZIP Co de Phone Number [facility] [address] [place] [address] [phone] * Colposcopy (05/01/2023) Narrative Yaritza Snow RN - 05/01/2023 WNL Colposcopy at [facility], see scanned report, co-test in 1 year Result [facility] Historical Provider IN CLINIC/BEDSIDE ORDERAB LES Edited Result - Final * Hm Colonoscopy (02/18/2023 4:41 PM EDT) Historical Provider HEALTH MAINTENANCE Final Result * HIV Ab/Ag (HAWA ORTIZ) (10/23/2022 4:12 PM EDT) HIV AB/AG Nonreactive Nonreactive [facility] Comment:HIV-1 p24 Ag and/or HIV-1/HIV-2 Ab not detected.A test result that is nonreactive does not exclude thepossibility of exposure to or infection with HIV-1 and/orHIV-2. Nonreactive results in this assay for individualswith prior exposure to HIV-1 and/or HIV-2 may be due toantigen and antibody levels that are below the limit ofdetection of this assay.The [employer] HIV Ag/Ab Combo assay result andsupplemental assay results should be interpreted inconjunction with the patient's clinical presentation,history and other laboratory results. If the results areinconsistent with clinical evidence, additional testing issuggested to confirm the result. 10/23/2022 4:12 PM EDT 10/23/2022 4:12 PM EDT us [facility] External Provider LAB BLO OD ORDERABLES Final Result [facility] [address] [place] [phone] * (ABNORMAL) LIPID PANEL, STANDARD (03/06/2022 8:44 AM EDT) Chol/HDLC Ratio 4.4 <5.0 (calc) [facility] Cholesterol, Total 216(H) <200 mg/dL [facility] HDL Cholesterol 49(L) > OR = 50 mg/dL [facility] LDL Cholesterol 136(H) mg/dL (calc) [facility] Comment: Reference range: <100 Desirable range <100 mg/dL for primary prevention; <70 mg/dL for patients with CHD or diabetic patients with > or = 2 CHD risk factors. LDL-C is now calculated using the Jac-Idris calculation, which is a validated novel method providing better accuracy than the Friedewald equation in the estimation of LDL-C. Jac GALVEZ et al. IRVIN. 2013;310(19): 0575-3128 (http://education.[employer].My Health Direct/faq/SKL755) Non-HDL Cholesterol 167(H) <130 mg/dL (calc) [facility] Comment: For patients with diabetes plus 1 major ASCVD risk factor, treating to a non-HDL-C goal of <100 mg/dL (LDL-C of <70 mg/dL) is considered a therapeutic option. Triglycerides 179(H) <150 mg/dL [facility] 03/06/2022 8:44 AM EDT Frannie Cedillo MD LAB BLOOD ORDERABLES Final Re sult [facility] from Last 3 Months or Most Recently Relevant to Health Maintenance Insurance * Guarantor: Millicent David Account Type Relation to Patient Date of Phone Billing Address Personal/Family Self [address] [place] Care Teams Blast Furnace Checker Relationship Specialty Start Date End Date Frannie Cedillo MD [address] [place] [address] [place] [address] PCP - General Family Medicine 07/21/13
--- OUTSIDE RECORDS SUMMARY | 2025-04-26 15:57 | XMS_ITS | Encounter Summary ---
Author Organization [employer] Address [address] [facility] [address] [place] [address] Care Team Providers Care Grease Buffer Name Role Phone Frannie Cedillo MD Primary Care Provider [phone] Encounter Details Date Type Department Care Team ([facility] st Contact Info) Description 05/22/2024 Orders Only [facility] [address] [place] [address] Provider, MD Skyler Social History Tobacco Use [...] Description 06/06/2025 3:00 PM EST Office Visit [facility] [address] [place] [address] Jose, Karen, OD [address] [place] [address] documented as of this encounter Procedures Procedure [...] documented as of this encounter Care Teams Grease Buffer Relationship Specialty Start Date End Date Frannie Cedillo MD [address] [place] [address] PCP - General Family Medicine 07/21/13 documented as of this encounter
== END 2025-04-26 14:28 | disposition home or self-care (01) ==
LOC: HO.HGI 13:55
PROVIDERS: PCP Pediatrics; Visit Provider Nurse Practitioner Family
DX: K21.9 Gastro-esophageal reflux disease without esophagitis (principal); K31.84 Gastroparesis; R10.13 Epigastric pain; K59.01 Slow transit constipation; K85.90 Acute pancreatitis without necrosis or infection, unspecified
CPT/HCPCS: 99214

== ENCOUNTER → 2025-04-26 13:55 | Outpatient (BNVA) | payer MEDICAID, SELFPAY | PROVIDERS: PCP Pediatrics; Visit Provider Nurse Practitioner Family | DX: K21.9 Gastro-esophageal reflux disease without esophagitis (principal); K31.84 Gastroparesis; R10.13 Epigastric pain; K59.01 Slow transit constipation; K85.90 Acute pancreatitis without necrosis or infection, unspecified | CPT/HCPCS: 99212 ==